=== PATIENT | female | born 1960 | race Caucasian/White ===

== ENCOUNTER → 2017-09-25 | Outpatient (CLI) | payer MEDICARE, MEDICAID ==
[~2017-09-25] MED LIST: BIOF500T11; CARI-316; CIPR-173; CITA-30 PO; DIA2T; FLUV100C; FLUV100T15 PO; NOR10T; NUTRTAB41 PO; PROMETHAZINE PO
== END | disposition home or self-care (01) ==
LOC: Rad HDHVI 13:49
PROVIDERS: ATTEND Internal Medicine Cardiovascular Disease
DX: I08.2 Rheumatic disorders of both aortic and tricuspid valves (principal); I70.0 Atherosclerosis of aorta; E11.9 Type 2 diabetes mellitus without complications
CPT/HCPCS: 93306

== ENCOUNTER → 2017-10-07 | Outpatient (CLI) | payer MEDICARE, MEDICAID ==
[~2017-10-07] VITALS: Ht 30.5 cm; Wt 0.5 kg
[~2017-10-07] MED LIST changes: +ADENOSINE 90 MG/30 ML INJ IV ONE; +ADENOSINE 95 MG in GIVE UN-DILUTED 0 ML IV ONE
[2017-10-07 16:24] LABS: Basophils # (auto) 0.1 uL; Basophils % (auto) 0.8 % (0.0-2.0); Eosinophils # (auto) 0.3 uL; Eosinophils % (auto) 2.4 % (0.0-7.0); Hematocrit 43.3 % (36.0-46.0); Hemoglobin 14.7 g/dL (12.2-16.2); Lymphocytes # (auto) 3.2 uL; Lymphocytes % (auto) 30.2 % (10.0-50.0); Mean Corpuscular Hemoglobin 29.8 pg (28.0-32.0); Mean Corpuscular Volume 87.9 fL (80.0-100.0); Monocytes # (auto) 0.6 uL; Monocytes % (auto) 5.4 % (0.0-12.0); Neutrophils # (auto) 6.5 uL; Neutrophils % (auto) 61.2 % (37.0-80.0); Nucleated Red Blood Cells % 0.1 %; Platelet Count (auto) 275 10^3/uL (140-450); Red Blood Cells 4.93 10^6/uL (4.0-5.20); Red Cell Distribution Width 13.5 % (11.8-14.3); White Blood Cell 10.6 10^3/uL (4.4-10.8)
[2017-10-07 16:43] LABS: Albumin 3.8 g/dL (3.4-5.0); BUN/Creatinine Ratio 15.5; Bilirubin, Total 1.4 mg/dL (0.2-1.0); Calcium 9.7 mg/dL (8.5-10.1); Potassium 3.5 mmol/L (3.5-5.1); Total Protein 8.5 g/dL (6.4-8.2)
[2017-10-07 16:54] LABS: Urine Blood 2+ /uL (Negative); Urine Specific Gravity 1.013 (1.001-1.035)
== END | disposition home or self-care (01) ==
LOC: Rad HDHVI 13:39
PROVIDERS: ATTEND Internal Medicine Cardiovascular Disease
DX: E78.00 Pure hypercholesterolemia, unspecified (principal); D64.9 Anemia, unspecified; I10 Essential (primary) hypertension; E11.9 Type 2 diabetes mellitus without complications; E03.9 Hypothyroidism, unspecified; E55.9 Vitamin D deficiency, unspecified; D51.9 Vitamin B12 deficiency anemia, unspecified; N39.0 Urinary tract infection, site not specified
CPT/HCPCS: 36415; 78452; 80053; 80061; 81003; 82306; 83036; 84439; 84443; 85025; 93005; 96374; 96375; A9500; J0153

== ENCOUNTER 2020-03-04 15:32 | Inpatient (IN) | payer MEDICARE, MEDICAID ==
[~2020-03-04] VITALS: Ht 162.6 cm; Wt 106.0 kg
[~2020-03-04 15:32] MED LIST changes: -ADENOSINE 90 MG/30 ML INJ IV ONE; -ADENOSINE 95 MG in GIVE UN-DILUTED 0 ML IV ONE; -CARI-316; +CARI350T22
[2020-03-04 17:03] LABS: Urine Bacteria FEW /hpf (None Seen); Urine Blood 1+ /uL (Negative); Urine Mucus FEW (None Seen); Urine Specific Gravity 1.023 (1.001-1.035); Urine WBC 17 /hpf (0 - 5)
[2020-03-04 17:34] LABS: Basophils # (auto) 0.1 10 ^3/uL (0-0.2); Basophils % (auto) 0.9 % (0.0-2.0); Eosinophils # (auto) 0.1 10 ^3/uL (0-0.8); Eosinophils % (auto) 1.5 % (0.0-7.0); Hematocrit 44.9 % (36.0-46.0); Hemoglobin 15.2 g/dL (12.2-16.2); Lymphocytes # (auto) 2.2 10 ^3/uL (0.4-5.4); Lymphocytes % (auto) 25.2 % (10.0-50.0); Mean Corpuscular Hemoglobin 30.2 pg (28.0-32.0); Mean Corpuscular Hgb Conc. 33.9 g/dL (32.0-36.0); Mean Corpuscular Volume 89.1 fL (80.0-100.0); Monocytes # (auto) 0.5 10 ^3/uL (0-1.3); Monocytes % (auto) 5.8 % (0.0-12.0); Neutrophils # (auto) 5.7 10 ^3/uL (1.6-8.6); Neutrophils % (auto) 66.6 % (37.0-80.0); Nucleated Red Blood Cells % 0.1 %; Platelet Count (auto) 268 10^3/uL (140-450); Red Blood Cells 5.04 10^6/uL (4.0-5.20); Red Cell Distribution Width 13.6 % (11.8-14.3); White Blood Cell 8.6 10^3/uL (4.4-10.8)
[2020-03-04] MEDS ORDERED: cefTRIAXone 1GM/50ML D5W 50 ML IV ONE (17:45)
[2020-03-04 17:51] LABS: Anion Gap 8 (5-15); Blood Urea Nitrogen 14 mg/dL (7-18); Calcium 9.8 mg/dL (8.5-10.1); Carbon Dioxide 25 mmol/L (21-32); Chloride 104 mmol/L (98-107); Glucose 174 mg/dL (74-106); Potassium 3.6 mmol/L (3.5-5.1); Sodium 137 mmol/L (136-145)
[2020-03-04 17:59] LABS: Alanine Aminotransferase 38 U/L (13-56); Alkaline Phosphatase 70 U/L (45-117); Aspartate Aminotransferase 22 U/L (15-37); BUN/Creatinine Ratio 16.1; Bilirubin, Total 1.1 mg/dL (0.2-1.0); GFR African American 85 mL/min; GFR Non-African American 71 mL/min; Total Protein 8.2 g/dL (6.4-8.2)
[2020-03-05] MEDS ORDERED: DOCUSATE SOD 100 MG CAP PO PRN (02:30)
[2020-03-05] MEDS ORDERED: ACETAMINOPHEN 325 MG TAB PO PRN (02:30)
[2020-03-05] MEDS ORDERED: MORPHINE SULF INJ 2 MG/ML SYRINGE 1ML IV PRN (02:30)
[2020-03-05] MEDS: SODIUM CHLORIDE 0.9% 1,000 ML IV SCH ×2 (04:23→23:00)
[2020-03-05 09:15] VITALS: BP 131/81
[2020-03-05] MEDS ORDERED: NUTRTAB41 OR (10:59)
[2020-03-05] MEDS ORDERED: SITA50TA PO (10:59)
[2020-03-05] MEDS ORDERED: GLIM-5 PO (11:01)
[2020-03-05] MEDS ORDERED: ALL100T PO (11:01)
[2020-03-05] MEDS ORDERED: PRO25I PO (11:01)
[2020-03-05 13:00] VITALS: BP 129/75
[2020-03-05 13:27] LABS: Basophils # (auto) 0 10 ^3/uL (0-0.2); Basophils % (auto) 0.6 % (0.0-2.0); Eosinophils # (auto) 0.1 10 ^3/uL (0-0.8); Eosinophils % (auto) 1.6 % (0.0-7.0); Hematocrit 41.5 % (36.0-46.0); Hemoglobin 13.8 g/dL (12.2-16.2); Lymphocytes # (auto) 2.4 10 ^3/uL (0.4-5.4); Lymphocytes % (auto) 27.5 % (10.0-50.0); Mean Corpuscular Hemoglobin 29.8 pg (28.0-32.0); Mean Corpuscular Hgb Conc. 33.2 g/dL (32.0-36.0); Mean Corpuscular Volume 89.8 fL (80.0-100.0); Monocytes # (auto) 0.6 10 ^3/uL (0-1.3); Monocytes % (auto) 6.6 % (0.0-12.0); Neutrophils # (auto) 5.6 10 ^3/uL (1.6-8.6); Neutrophils % (auto) 63.7 % (37.0-80.0); Nucleated Red Blood Cells % 0.1 %; Platelet Count (auto) 230 10^3/uL (140-450); Red Blood Cells 4.62 10^6/uL (4.0-5.20); Red Cell Distribution Width 13.5 % (11.8-14.3); White Blood Cell 8.8 10^3/uL (4.4-10.8)
[2020-03-05 13:52] LABS: Calcium 8.8 mg/dL (8.5-10.1); Potassium 3.6 mmol/L (3.5-5.1)
[2020-03-05 13:55] LABS: BUN/Creatinine Ratio 17.7
[2020-03-05] MEDS ORDERED: MANNITOL FTV 25% 12.5 GM/50 ML 50 ML IV ONE (15:45)
[2020-03-05] MEDS ORDERED: DEXTROSE (50%) 50ML SYRG IV PRN (16:15)
[2020-03-05 17:00] VITALS: BP 121/79
[2020-03-05] MEDS: ACCU-CHEK COMFORT CURVE STRIP VI SCH ×2 (18:06→21:53)
[2020-03-05] MEDS: InsuLIN REG 1unit/0.01ml Soln (100units/ml) SC SCH ×2 (18:06→22:32)
--- NOTE | 2020-03-05 19:35 | NUR ---
Opening Shift Note Assumed care of patient, awake and alert x4. No S/S of distress/SOB, complaints of a right flank pain 6/0-10, pain management options discussed. Call light is within reach, side rails up x2, bed is in the lowest position. Instructed on POC and to call for assist PRN, will continue to monitor for changes Q1hr and PRN.
[2020-03-05] MEDS: HYDROcodone-ACET 5/325MG TAB PO PRN (19:54)
[2020-03-05 22:00] VITALS: BP 140/82
--- NOTE | 2020-03-05 22:06 | NUR ---
IV removal from right hand due to leaking IV DC'd with clean sterile technique, catheter fully intact. Pressure dressing applied to site. Patient tolerated well.
--- NOTE | 2020-03-05 22:45 | NUR ---
IV insertion to RFA IV access obtained, via clean sterile technique by inserting 22 gauge catheter at the RFA after 1 attempt(s). IV secured properly. No trauma to site. Patient tolerated well.
[2020-03-06] MEDS: HYDROcodone-ACET 5/325MG TAB PO PRN ×3 (05:15→21:31)
[2020-03-06 05:54] LABS: Basophils # (auto) 0.1 10 ^3/uL (0-0.2); Basophils % (auto) 0.7 % (0.0-2.0); Eosinophils # (auto) 0.2 10 ^3/uL (0-0.8); Eosinophils % (auto) 2.6 % (0.0-7.0); Hematocrit 40.4 % (36.0-46.0); Hemoglobin 13.7 g/dL (12.2-16.2); Lymphocytes # (auto) 2.9 10 ^3/uL (0.4-5.4); Lymphocytes % (auto) 33.6 % (10.0-50.0); Mean Corpuscular Hemoglobin 30.4 pg (28.0-32.0); Mean Corpuscular Hgb Conc. 33.9 g/dL (32.0-36.0); Mean Corpuscular Volume 89.8 fL (80.0-100.0); Monocytes # (auto) 0.6 10 ^3/uL (0-1.3); Monocytes % (auto) 7.1 % (0.0-12.0); Neutrophils # (auto) 4.8 10 ^3/uL (1.6-8.6); Nucleated Red Blood Cells % 0.8 %; Platelet Count (auto) 228 10^3/uL (140-450); Red Cell Distribution Width 13.7 % (11.8-14.3); White Blood Cell 8.7 10^3/uL (4.4-10.8)
[2020-03-06 06:05] VITALS: BP 157/80
[2020-03-06 06:08] LABS: Calcium 8.6 mg/dL (8.5-10.1); Potassium 3.4 mmol/L (3.5-5.1)
[2020-03-06 06:09] LABS: INR 1.02 (0.9-1.15)
[2020-03-06] MEDS: InsuLIN REG 1unit/0.01ml Soln (100units/ml) SC SCH ×4 (06:55→22:21)
[2020-03-06] MEDS: ACCU-CHEK COMFORT CURVE STRIP VI SCH ×4 (06:55→21:55)
[2020-03-06 08:00] VITALS: BP 137/88
[2020-03-06 09:00] VITALS: BP 137/88
[2020-03-06] MEDS: SODIUM CHLORIDE 0.9% 1,000 ML IV SCH (12:01)
[2020-03-06 13:00] VITALS: BP 141/76
[2020-03-06] MEDS ORDERED: POTASSIUM EFFERVESENT TAB 25 MEQ PO ONE (14:30)
[2020-03-06 17:00] VITALS: BP 126/70
[2020-03-06] MEDS: ESTROVEN PO SCH (17:04)
[2020-03-06] MEDS ORDERED: FLUVOXAMINE 100 MG PO SCH (22:00)
[2020-03-06 22:01] VITALS: BP 154/78
[2020-03-07 05:00] VITALS: BP 150/74
[2020-03-07] MEDS: SODIUM CHLORIDE 0.9% 1,000 ML IV SCH ×2 (06:10→20:53)
[2020-03-07] MEDS: ACCU-CHEK COMFORT CURVE STRIP VI SCH ×4 (06:43→21:18)
[2020-03-07] MEDS: HYDROcodone-ACET 5/325MG TAB PO PRN ×3 (06:48→20:56)
[2020-03-07] MEDS: InsuLIN REG 1unit/0.01ml Soln (100units/ml) SC SCH ×4 (06:57→21:18)
[2020-03-07 07:29] LABS: Basophils # (auto) 0.1 10 ^3/uL (0-0.2); Eosinophils # (auto) 0.3 10 ^3/uL (0-0.8); Eosinophils % (auto) 3.6 % (0.0-7.0); Hematocrit 42.6 % (36.0-46.0); Hemoglobin 14.2 g/dL (12.2-16.2); Lymphocytes # (auto) 2.7 10 ^3/uL (0.4-5.4); Lymphocytes % (auto) 34.1 % (10.0-50.0); Mean Corpuscular Hgb Conc. 33.3 g/dL (32.0-36.0); Mean Corpuscular Volume 90.2 fL (80.0-100.0); Monocytes # (auto) 0.5 10 ^3/uL (0-1.3); Monocytes % (auto) 6.1 % (0.0-12.0); Neutrophils # (auto) 4.4 10 ^3/uL (1.6-8.6); Neutrophils % (auto) 55.2 % (37.0-80.0); Platelet Count (auto) 258 10^3/uL (140-450); Red Blood Cells 4.72 10^6/uL (4.0-5.20); Red Cell Distribution Width 13.4 % (11.8-14.3); White Blood Cell 7.9 10^3/uL (4.4-10.8)
[2020-03-07 07:44] LABS: BUN/Creatinine Ratio 17.5; Calcium 8.8 mg/dL (8.5-10.1); Potassium 3.6 mmol/L (3.5-5.1)
[2020-03-07 08:00] VITALS: BP 137/79
[2020-03-07 08:53] VITALS: BP 137/79
[2020-03-07] MEDS: cefTRIAXone 1GM/50ML D5W 50 ML IV SCH (10:41)
[2020-03-07] MEDS: LORazepam 0.5 MG TAB PO PRN ×2 (10:42→17:21)
[2020-03-07 13:00] VITALS: BP 127/78
[2020-03-07 17:00] VITALS: BP 132/79
[2020-03-07] MEDS: ESTROVEN PO SCH (17:20)
[2020-03-07] MEDS: FLUVOXAMINE 100 MG PO SCH (21:05)
[2020-03-08 05:00] VITALS: BP 155/84
[2020-03-08] MEDS: InsuLIN REG 1unit/0.01ml Soln (100units/ml) SC SCH ×4 (06:21→22:02)
[2020-03-08] MEDS: ACCU-CHEK COMFORT CURVE STRIP VI SCH ×4 (06:21→21:56)
[2020-03-08 07:32] LABS: Basophils # (auto) 0.1 10 ^3/uL (0-0.2); Basophils % (auto) 0.7 % (0.0-2.0); Eosinophils # (auto) 0.2 10 ^3/uL (0-0.8); Eosinophils % (auto) 2.9 % (0.0-7.0); Hematocrit 41.7 % (36.0-46.0); Hemoglobin 13.9 g/dL (12.2-16.2); Lymphocytes # (auto) 2.7 10 ^3/uL (0.4-5.4); Lymphocytes % (auto) 35.6 % (10.0-50.0); Mean Corpuscular Hgb Conc. 33.4 g/dL (32.0-36.0); Mean Corpuscular Volume 89.9 fL (80.0-100.0); Monocytes # (auto) 0.5 10 ^3/uL (0-1.3); Monocytes % (auto) 6.3 % (0.0-12.0); Neutrophils # (auto) 4.1 10 ^3/uL (1.6-8.6); Neutrophils % (auto) 54.5 % (37.0-80.0); Nucleated Red Blood Cells % 0.1 %; Platelet Count (auto) 248 10^3/uL (140-450); Red Blood Cells 4.64 10^6/uL (4.0-5.20); Red Cell Distribution Width 13.2 % (11.8-14.3); White Blood Cell 7.5 10^3/uL (4.4-10.8)
[2020-03-08 07:47] LABS: BUN/Creatinine Ratio 15.4; Calcium 8.7 mg/dL (8.5-10.1); Potassium 3.6 mmol/L (3.5-5.1)
[2020-03-08] MEDS ORDERED: IOHEXOL 300 MG/ML 100ML BOTTLE IJ ONE (07:47)
[2020-03-08] MEDS ORDERED: cefTRIAXone 1GM/50ML D5W 50 ML IV ONE (07:48)
[2020-03-08] MEDS ORDERED: LIDOCAINE 1% (LOCAL ANESTH.) PF 5ml SDV ONE (08:27)
[2020-03-08] MEDS ORDERED: SUCCINYLCHOLINE CHLORIDE 20 MG/ML 10ML VIAL IV ONE (08:27)
[2020-03-08] MEDS ORDERED: METOCLOPRAMIDE HCL 5MG/ml INJ 2ml VIAL ONE (08:28)
[2020-03-08] MEDS ORDERED: MIDAZOLAM HCL 1MG/1ML-2 ML VIAL ONE (08:28)
[2020-03-08] MEDS ORDERED: ETOMIDATE (2MG/ML) 20ML VIAL IV ONE (08:34)
[2020-03-08] MEDS ORDERED: ROCURONIUM 10MG/ML 10ML VIAL IV ONE (08:35)
[2020-03-08] MEDS ORDERED: fentaNYL CITRATE 100 MCG/2 ML VL ONE (08:52)
[2020-03-08] MEDS ORDERED: ACCU-CHEK COMFORT CURVE STRIP VI ONE (09:00)
[2020-03-08] MEDS ORDERED: ONDANSETRON HCL 4 MG/2 ML VIAL IV PRN (09:00)
[2020-03-08] MEDS ORDERED: HYDROmorphone HCL 2 MG/ML VL IV PRN ×2 (09:00)
[2020-03-08] MEDS ORDERED: NALOXONE HCL 0.4 MG/ML VIAL IV PRN (09:00)
[2020-03-08] MEDS ORDERED: STERILE WATER 10 ML ONE (09:05)
[2020-03-08] MEDS ORDERED: ePHEDrine SULFATE 50 MG/ML AMP ONE (09:05)
[2020-03-08] MEDS: cefTRIAXone 1GM/50ML D5W 50 ML IV SCH (09:06)
[2020-03-08] MEDS ORDERED: NEOSTIGMINE 1 MG/ML INJ (10mg/10ML VIAL) ONE (09:39)
[2020-03-08] MEDS ORDERED: FUROSEMIDE 20 MG/2 ML VIAL ONE (09:54)
[2020-03-08] MEDS ORDERED: FUROSEMIDE 20 MG/2 ML VIAL IV ONE (10:00)
[2020-03-08] MEDS: ONDANSETRON HCL 4 MG/2 ML VIAL IV PRN ×2 (10:59→16:53)
[2020-03-08] MEDS: LORazepam 0.5 MG TAB PO PRN ×3 (11:01→23:50)
[2020-03-08] MEDS: SODIUM CHLORIDE 0.9% 1,000 ML IV SCH (12:14)
[2020-03-08] MEDS: HYDROcodone-ACET 5/325MG TAB PO PRN ×3 (12:39→23:50)
[2020-03-08 12:49] VITALS: BP 144/98
--- NOTE | 2020-03-08 15:07 | NUR ---
GUPTA CATHETER REMOVED
--- NOTE | 2020-03-08 15:51 | NUR ---
Est energy needs 6316-0362 kcal (14-18 kcal/kg BW 106.1kg) Est protein needs 55-82g (1-1.5g/kg BW 54.5kg) Will reassess prn Addendum: 03/08/20 at [address] Amended: Links added.
[2020-03-08 16:48] VITALS: BP 153/93
[2020-03-08] MEDS: ESTROVEN PO SCH (17:18)
--- NOTE | 2020-03-08 18:30 | NUR ---
PATIENT CLEARED FOR DISCHARGE FROM RESPIRATORY STANDPOINT BY DR SANCHEZ
[2020-03-08 22:00] VITALS: BP 146/98
[2020-03-08] MEDS: FLUVOXAMINE 100 MG PO SCH (22:46)
--- NOTE | 2020-03-09 | NUR ---
PT AMBULATORY TO BATHROOM AND BACK TO BED W/O ASSISTANCE.DENIES PAIN. CALL LIGHT IN REACH.
[2020-03-09 05:00] VITALS: BP 141/83
[2020-03-09] MEDS: InsuLIN REG 1unit/0.01ml Soln (100units/ml) SC SCH ×3 (05:38→17:00)
[2020-03-09 05:40] LABS: Basophils # (auto) 0.1 10 ^3/uL (0-0.2); Basophils % (auto) 0.6 % (0.0-2.0); Eosinophils # (auto) 0.2 10 ^3/uL (0-0.8); Eosinophils % (auto) 1.6 % (0.0-7.0); Hematocrit 42.6 % (36.0-46.0); Hemoglobin 14.5 g/dL (12.2-16.2); Lymphocytes # (auto) 2.1 10 ^3/uL (0.4-5.4); Lymphocytes % (auto) 19.5 % (10.0-50.0); Mean Corpuscular Hemoglobin 30.6 pg (28.0-32.0); Monocytes # (auto) 0.6 10 ^3/uL (0-1.3); Monocytes % (auto) 5.8 % (0.0-12.0); Neutrophils # (auto) 7.8 10 ^3/uL (1.6-8.6); Neutrophils % (auto) 72.5 % (37.0-80.0); Nucleated Red Blood Cells % 0.2 %; Platelet Count (auto) 242 10^3/uL (140-450); Red Blood Cells 4.73 10^6/uL (4.0-5.20); Red Cell Distribution Width 13.6 % (11.8-14.3); White Blood Cell 10.7 10^3/uL (4.4-10.8)
[2020-03-09] MEDS: ACCU-CHEK COMFORT CURVE STRIP VI SCH ×3 (05:46→17:00)
[2020-03-09] MEDS: HYDROcodone-ACET 5/325MG TAB PO PRN ×2 (05:51→11:32)
[2020-03-09] MEDS: LORazepam 0.5 MG TAB PO PRN (05:51)
[2020-03-09 05:56] LABS: Calcium 9.1 mg/dL (8.5-10.1); Potassium 3.5 mmol/L (3.5-5.1)
[2020-03-09] MEDS: SODIUM CHLORIDE 0.9% 1,000 ML IV SCH (06:17)
[2020-03-09 08:15] VITALS: BP 148/86
[2020-03-09 09:12] VITALS: BP 148/86
[2020-03-09] MEDS: cefTRIAXone 1GM/50ML D5W 50 ML IV SCH (09:47)
--- NOTE | 2020-03-09 10:30 | NUR ---
PAGED DR PERDOMO IN REGARDS TO DISCHARGE CLEARANCE REQUESTED BY DR GRACE
[2020-03-09] MEDS: ONDANSETRON HCL 4 MG/2 ML VIAL IV PRN (11:25)
[2020-03-09 13:09] VITALS: BP 145/94
--- NOTE | 2020-03-09 15:40 | NUR ---
RECEIVED VERBAL CLEARANCE FOR DISCHARGE FROM DR PERDOMO OF SURGERY
[2020-03-09] MEDS ORDERED: METF-370 PO (15:55)
[2020-03-09] MEDS ORDERED: ATOR20TA50 PO (15:57)
[2020-03-09 16:41] VITALS: BP 145/94
[2020-03-09 17:06] VITALS: BP 139/70
--- NOTE | 2020-03-09 18:04 | NUR ---
PATIENT DISCHARGING HOME WITH FAMILY. PATIENT NON-TELEMETRY. ALL IV ACCESS DISCONTINUED. ALL DISCHARGE INSTRUCTIONS GIVEN. ALL DISCHARGE PAPERWORK SIGNED.
[2020-04-04] MEDS ORDERED: TRAM-711 PO (10:31)
== END 2020-03-09 18:00 | disposition home or self-care (01) | DRG 660 ==
LOC: ER 15:32 → OVERFLOW 15:33 → WEST WING 03-05 08:21
PROVIDERS: ADMIT Hospitalist; ATTEND Internal Medicine Nephrology
PROC: BT161ZZ Fluoroscopy of Right Ureter using Low Osmolar Contrast (ICD-10-PCS; 2020-03-08)
PROC: BT171ZZ Fluoroscopy of Left Ureter using Low Osmolar Contrast (ICD-10-PCS; 2020-03-08)
PROC: 0T788DZ Dilation of Bilateral Ureters with Intraluminal Device, Via Natural or Artificial Opening Endoscopic (ICD-10-PCS; principal; 2020-03-08 08:25)
PROC: 0TF6XZZ Fragmentation in Right Ureter, External Approach (ICD-10-PCS; 2020-03-08 08:25)
DX: N13.6 Pyonephrosis (principal); Z68.41 Body mass index [BMI] 40.0-44.9, adult; K57.90 Diverticulosis of intestine, part unspecified, without perforation or abscess without bleeding; K76.0 Fatty (change of) liver, not elsewhere classified; E66.01 Morbid (severe) obesity due to excess calories; K42.9 Umbilical hernia without obstruction or gangrene; D17.1 Benign lipomatous neoplasm of skin and subcutaneous tissue of trunk; E87.6 Hypokalemia; Z20.828 Contact with and (suspected) exposure to other viral communicable diseases; F41.9 Anxiety disorder, unspecified; F32.9 Major depressive disorder, single episode, unspecified; E11.65 Type 2 diabetes mellitus with hyperglycemia; M16.11 Unilateral primary osteoarthritis, right hip; Z88.2 Allergy status to sulfonamides; Z88.1 Allergy status to other antibiotic agents; Z88.0 Allergy status to penicillin
CPT/HCPCS: 36415; 71045; 71250; 74018; 74176; 80048; 80053; 80061; 81001; 82962; 83036; 84443; 84484; 85025; 85610; 86850; 86900; 86901; 87086; 96365; G0378; J0330; J0696; J1815; J2250; J2405

== ENCOUNTER → 2020-04-09 | Day surgery (SDC) | payer MEDICARE, MEDICAID ==
[2020-04-04 11:17] LABS: Basophils # (auto) 0.1 10 ^3/uL (0-0.2); Basophils % (auto) 0.8 % (0.0-2.0); Eosinophils # (auto) 0.2 10 ^3/uL (0-0.8); Eosinophils % (auto) 2.3 % (0.0-7.0); Hematocrit 42.6 % (36.0-46.0); Lymphocytes % (auto) 21.7 % (10.0-50.0); Mean Corpuscular Hemoglobin 29.7 pg (28.0-32.0); Mean Corpuscular Hgb Conc. 32.8 g/dL (32.0-36.0); Mean Corpuscular Volume 90.5 fL (80.0-100.0); Monocytes # (auto) 0.5 10 ^3/uL (0-1.3); Monocytes % (auto) 5.5 % (0.0-12.0); Neutrophils # (auto) 6.4 10 ^3/uL (1.6-8.6); Neutrophils % (auto) 69.7 % (37.0-80.0); Nucleated Red Blood Cells % 0.1 %; Platelet Count (auto) 264 10^3/uL (140-450); Red Cell Distribution Width 13.3 % (11.8-14.3); White Blood Cell 9.2 10^3/uL (4.4-10.8)
[2020-04-04 11:35] LABS: INR 0.92 (0.9-1.15); Partial Thromboplastin Time 26.5 sec (23.0-31.2)
[2020-04-04 11:50] LABS: Albumin 3.5 g/dL (3.4-5.0); Calcium 9.2 mg/dL (8.5-10.1); Potassium 3.7 mmol/L (3.5-5.1)
[2020-04-04 11:53] LABS: Bilirubin, Total 0.8 mg/dL (0.2-1.0); Total Protein 7.2 g/dL (6.4-8.2)
[2020-04-04 12:40] LABS: Urine Bacteria FEW /hpf (None Seen); Urine Blood 3+ /uL (Negative); Urine Mucus FEW (None Seen); Urine WBC 132 /hpf (0 - 5)
[~2020-04-09] VITALS: Ht 162.6 cm; Wt 102.5 kg
[~2020-04-09] MED LIST changes: +ACCU-CHEK COMFORT CURVE STRIP VI ONE; +ALL100T PO; -BIOF500T11; -CARI350T22; -CIPR-173; -CITA-30 PO; -DIA2T; +ETOMIDATE (2MG/ML) 20ML VIAL IV ONE; -FLUV100C; +GLIM-5 PO; +HYDROmorphone HCL 2 MG/ML VL IV PRN; +IOHEXOL 300 MG/ML 100ML BOTTLE IJ ONE; +LIDOCAINE 1% (LOCAL ANESTH.) PF 5ml SDV ONE; +MECLIZINE HCL 25 MG TAB PO ONE; +METOCLOPRAMIDE HCL 5MG/ml INJ 2ml VIAL ONE; +MIDAZOLAM HCL 1MG/1ML-2 ML VIAL ONE; +NALOXONE HCL 0.4 MG/ML VIAL IV PRN; -NOR10T; +NUTRTAB41 OR; -NUTRTAB41 PO; +ONDANSETRON HCL 4 MG/2 ML VIAL IV PRN; +ONDANSETRON HCL 4 MG/2 ML VIAL ONE; +PROMETHAZINE HCL 25 MG/ML 1ML IV PRN; -PROMETHAZINE PO; +ROCURONIUM 10MG/ML 10ML VIAL IV ONE; +SITA50TA PO; +SUCCINYLCHOLINE CHLORIDE 20 MG/ML 10ML VIAL IV ONE; +TRAM-711 PO; +VANCOMYCIN HCL 1000 MG VL ONE; +cefTRIAXone 1GM/50ML D5W 50 ML IV ONE; +fentaNYL CITRATE 100 MCG/2 ML VL ONE
[2020-04-09 12:20] VITALS: BP 133/68
== END | disposition home or self-care (01) ==
LOC: SUR 08:07
PROVIDERS: ATTEND Urology
DX: N20.0 Calculus of kidney (principal); E11.22 Type 2 diabetes mellitus with diabetic chronic kidney disease; N18.3 Chronic kidney disease, stage 3 (moderate); K21.9 Gastro-esophageal reflux disease without esophagitis; G89.29 Other chronic pain; F32.9 Major depressive disorder, single episode, unspecified; F41.9 Anxiety disorder, unspecified; G47.33 Obstructive sleep apnea (adult) (pediatric); E66.01 Morbid (severe) obesity due to excess calories; Z68.41 Body mass index [BMI] 40.0-44.9, adult; Z88.2 Allergy status to sulfonamides; Z88.1 Allergy status to other antibiotic agents; Z88.8 Allergy status to other drugs, medicaments and biological substances; Z79.899 Other long term (current) drug therapy; Z79.84 Long term (current) use of oral hypoglycemic drugs; Z88.0 Allergy status to penicillin; Z20.828 Contact with and (suspected) exposure to other viral communicable diseases
CPT/HCPCS: 36415; 50590; 52310; 80053; 81001; 82962; 85025; 85610; 85730; J0330; J0696; J2250; J2405; J2765; J3010; J3370; J7060; J8597; U0003; J1956

== ENCOUNTER → 2020-04-19 | Outpatient (CLI) | payer MEDICARE, MEDICAID ==
[~2020-04-19] VITALS: Ht 162.6 cm; Wt 102.5 kg
[~2020-04-19] MED LIST changes: -ACCU-CHEK COMFORT CURVE STRIP VI ONE; +ADENOSINE 86 MG in GIVE UN-DILUTED 0 ML IV ONE; +ADENOSINE 90 MG/30 ML INJ IV ONE; -ETOMIDATE (2MG/ML) 20ML VIAL IV ONE; -HYDROmorphone HCL 2 MG/ML VL IV PRN; -IOHEXOL 300 MG/ML 100ML BOTTLE IJ ONE; -LIDOCAINE 1% (LOCAL ANESTH.) PF 5ml SDV ONE; -MECLIZINE HCL 25 MG TAB PO ONE; -METOCLOPRAMIDE HCL 5MG/ml INJ 2ml VIAL ONE; -MIDAZOLAM HCL 1MG/1ML-2 ML VIAL ONE; -NALOXONE HCL 0.4 MG/ML VIAL IV PRN; -ONDANSETRON HCL 4 MG/2 ML VIAL IV PRN; -ONDANSETRON HCL 4 MG/2 ML VIAL ONE; -PROMETHAZINE HCL 25 MG/ML 1ML IV PRN; -ROCURONIUM 10MG/ML 10ML VIAL IV ONE; -SUCCINYLCHOLINE CHLORIDE 20 MG/ML 10ML VIAL IV ONE; -VANCOMYCIN HCL 1000 MG VL ONE; -cefTRIAXone 1GM/50ML D5W 50 ML IV ONE; -fentaNYL CITRATE 100 MCG/2 ML VL ONE
== END | disposition home or self-care (01) ==
LOC: Rad HDHVI 08:29
PROVIDERS: ATTEND Internal Medicine
DX: Z01.810 Encounter for preprocedural cardiovascular examination (principal); E11.9 Type 2 diabetes mellitus without complications; E78.00 Pure hypercholesterolemia, unspecified; Z88.0 Allergy status to penicillin; Z88.1 Allergy status to other antibiotic agents; Z88.2 Allergy status to sulfonamides; Z88.8 Allergy status to other drugs, medicaments and biological substances
CPT/HCPCS: 78452; 93005; 96374; 96375; A9500; J0153

== ENCOUNTER → 2020-04-30 | Outpatient (CLI) | payer MEDICARE, MEDICAID ==
[~2020-04-30] MED LIST changes: -ADENOSINE 86 MG in GIVE UN-DILUTED 0 ML IV ONE; -ADENOSINE 90 MG/30 ML INJ IV ONE
== END | disposition home or self-care (01) ==
LOC: Rad HDHVI 09:04
PROVIDERS: ATTEND Internal Medicine
DX: I34.0 Nonrheumatic mitral (valve) insufficiency (principal); R06.02 Shortness of breath; E11.9 Type 2 diabetes mellitus without complications; J44.9 Chronic obstructive pulmonary disease, unspecified
CPT/HCPCS: 93306

== ENCOUNTER → 2020-05-31 | Day surgery (SDC) | payer MEDICARE, MEDICAID ==
[2020-05-24 12:05] LABS: Basophils # (auto) 0.1 10 ^3/uL (0-0.2); Basophils % (auto) 0.7 % (0.0-2.0); Eosinophils # (auto) 0.2 10 ^3/uL (0-0.8); Eosinophils % (auto) 2.8 % (0.0-7.0); Hematocrit 39.3 % (36.0-46.0); Hemoglobin 13.2 g/dL (12.2-16.2); Lymphocytes # (auto) 2.5 10 ^3/uL (0.4-5.4); Lymphocytes % (auto) 29.3 % (10.0-50.0); Mean Corpuscular Hemoglobin 29.7 pg (28.0-32.0); Mean Corpuscular Hgb Conc. 33.5 g/dL (32.0-36.0); Mean Corpuscular Volume 88.8 fL (80.0-100.0); Monocytes # (auto) 0.5 10 ^3/uL (0-1.3); Neutrophils # (auto) 5.2 10 ^3/uL (1.6-8.6); Neutrophils % (auto) 61.2 % (37.0-80.0); Nucleated Red Blood Cells % 0.1 %; Platelet Count (auto) 280 10^3/uL (140-450); Red Blood Cells 4.43 10^6/uL (4.0-5.20); Red Cell Distribution Width 13.4 % (11.8-14.3); White Blood Cell 8.5 10^3/uL (4.4-10.8)
[2020-05-24 12:18] LABS: INR 0.91 (0.9-1.15); Partial Thromboplastin Time 26.4 sec (23.0-31.2)
[2020-05-24 12:38] LABS: Potassium 3.6 mmol/L (3.5-5.1)
[2020-05-24 12:45] LABS: Albumin 3.6 g/dL (3.4-5.0); Bilirubin, Total 0.7 mg/dL (0.2-1.0); Calcium 8.8 mg/dL (8.5-10.1); Total Protein 7.3 g/dL (6.4-8.2)
[2020-05-24 13:03] LABS: Urine Bacteria MANY /hpf (None Seen); Urine Blood 2+ /uL (Negative); Urine Specific Gravity 1.017 (1.001-1.035); Urine WBC 2482 /hpf (0 - 5); Urine WBC Clumps PRESENT /hpf (None Seen)
[~2020-05-31] VITALS: Ht 162.6 cm; Wt 102.5 kg
[~2020-05-31] MED LIST changes: +ACCU-CHEK COMFORT CURVE STRIP VI ONE; +DexAMETHasone SOD PHOS 10MG/1ML VIAL INJ ONE; +HYDROmorphone HCL 2 MG/ML VL IV PRN; +LABETALOL HCL 5 MG/ML 4ML SYRINGE IV PRN; +MEPERIDINE HCL (25 MG/ML) 1ML VIAL ONE; +MIDAZOLAM HCL 1MG/1ML-2 ML VIAL IV PRN; +MIDAZOLAM HCL 1MG/1ML-2 ML VIAL ONE; +MORPHINE SULFATE 4 MG/ML SYR/VIAL IV PRN; +ONDANSETRON HCL 4 MG/2 ML VIAL IV PRN; +PROPOFOL 10 MG/ML 20 ML IV ONE; +VANCOMYCIN HCL 1000 MG VL ONE; +ePHEDrine SULFATE 50 MG/ML AMP IV PRN; +fentaNYL CITRATE 100 MCG/2 ML VL ONE
[2020-05-31 10:55] VITALS: BP 140/79
== END | disposition home or self-care (01) ==
LOC: SUR 07:14
PROVIDERS: ATTEND Urology
DX: N20.0 Calculus of kidney (principal); E11.22 Type 2 diabetes mellitus with diabetic chronic kidney disease; I12.9 Hypertensive chronic kidney disease with stage 1 through stage 4 chronic kidney disease, or unspecified chronic kidney disease; N18.9 Chronic kidney disease, unspecified; E66.01 Morbid (severe) obesity due to excess calories; F41.9 Anxiety disorder, unspecified; F32.9 Major depressive disorder, single episode, unspecified; Z88.0 Allergy status to penicillin; Z88.2 Allergy status to sulfonamides; Z88.1 Allergy status to other antibiotic agents; Z68.38 Body mass index [BMI] 38.0-38.9, adult; G89.29 Other chronic pain; Z98.890 Other specified postprocedural states; Z79.899 Other long term (current) drug therapy; Z20.828 Contact with and (suspected) exposure to other viral communicable diseases
CPT/HCPCS: 36415; 50590; 80053; 81001; 82962; 85025; 85610; 85730; J1100; J2175; J2250; J2704; J3010; J3370; J7050; U0003

== ENCOUNTER → 2020-06-25 | Day surgery (SDC) | payer MEDICARE, MEDICAID ==
[2020-06-20 10:52] LABS: Basophils # (auto) 0.1 10 ^3/uL (0-0.2); Basophils % (auto) 0.9 % (0.0-2.0); Eosinophils # (auto) 0.2 10 ^3/uL (0-0.8); Eosinophils % (auto) 2.8 % (0.0-7.0); Hematocrit 41.2 % (36.0-46.0); Hemoglobin 13.7 g/dL (12.2-16.2); Lymphocytes # (auto) 2.1 10 ^3/uL (0.4-5.4); Lymphocytes % (auto) 25.3 % (10.0-50.0); Mean Corpuscular Hemoglobin 29.4 pg (28.0-32.0); Mean Corpuscular Hgb Conc. 33.1 g/dL (32.0-36.0); Mean Corpuscular Volume 88.8 fL (80.0-100.0); Monocytes # (auto) 0.5 10 ^3/uL (0-1.3); Monocytes % (auto) 5.9 % (0.0-12.0); Neutrophils # (auto) 5.5 10 ^3/uL (1.6-8.6); Neutrophils % (auto) 65.1 % (37.0-80.0); Platelet Count (auto) 269 10^3/uL (140-450); Red Blood Cells 4.64 10^6/uL (4.0-5.20); Red Cell Distribution Width 13.8 % (11.8-14.3); White Blood Cell 8.4 10^3/uL (4.4-10.8)
[2020-06-20 11:05] LABS: Albumin 3.5 g/dL (3.4-5.0); Calcium 9.3 mg/dL (8.5-10.1); Potassium 3.8 mmol/L (3.5-5.1); Urine Bacteria MANY /hpf (None Seen); Urine Blood 2+ /uL (Negative); Urine Mucus FEW (None Seen); Urine Specific Gravity 1.018 (1.001-1.035); Urine WBC 1219 /hpf (0 - 5); Urine WBC Clumps PRESENT /hpf (None Seen)
[2020-06-20 11:10] LABS: INR 0.92 (0.9-1.15); Partial Thromboplastin Time 26.5 sec (23.0-31.2)
[2020-06-20 11:11] LABS: Bilirubin, Total 0.7 mg/dL (0.2-1.0); Total Protein 7.6 g/dL (6.4-8.2)
[~2020-06-25] VITALS: Ht 162.6 cm; Wt 104.8 kg
[~2020-06-25] MED LIST changes: -DexAMETHasone SOD PHOS 10MG/1ML VIAL INJ ONE; +ETOMIDATE (2MG/ML) 20ML VIAL IV ONE; +GLYCOPYRROLATE 0.2 MG/ML 1ML VIAL ONE; -LABETALOL HCL 5 MG/ML 4ML SYRINGE IV PRN; +LIDOCAINE 2% (LOCAL ANESTH.) PF 5ml SDV ONE; -MEPERIDINE HCL (25 MG/ML) 1ML VIAL ONE; +METOCLOPRAMIDE HCL 5MG/ml INJ 2ml VIAL ONE; -MIDAZOLAM HCL 1MG/1ML-2 ML VIAL IV PRN; -MORPHINE SULFATE 4 MG/ML SYR/VIAL IV PRN; +NALOXONE HCL 0.4 MG/ML VIAL IV PRN; +NEOSTIGMINE 1 MG/ML INJ (10mg/10ML VIAL) ONE; -PROPOFOL 10 MG/ML 20 ML IV ONE; +ROCURONIUM 10MG/ML 10ML VIAL IV ONE; +SUCCINYLCHOLINE CHLORIDE 20 MG/ML 10ML VIAL IV ONE; -ePHEDrine SULFATE 50 MG/ML AMP IV PRN
[2020-06-25 13:15] VITALS: BP 138/53
== END | disposition home or self-care (01) ==
LOC: SUR 08:35
PROVIDERS: ATTEND Urology
DX: N20.0 Calculus of kidney (principal); E11.9 Type 2 diabetes mellitus without complications; I10 Essential (primary) hypertension; F32.9 Major depressive disorder, single episode, unspecified; E66.9 Obesity, unspecified; M19.90 Unspecified osteoarthritis, unspecified site; G47.33 Obstructive sleep apnea (adult) (pediatric); K21.9 Gastro-esophageal reflux disease without esophagitis; F41.9 Anxiety disorder, unspecified; Z98.890 Other specified postprocedural states; Z88.0 Allergy status to penicillin; Z68.39 Body mass index [BMI] 39.0-39.9, adult; Z88.2 Allergy status to sulfonamides; Z20.828 Contact with and (suspected) exposure to other viral communicable diseases; Z79.899 Other long term (current) drug therapy; Z88.1 Allergy status to other antibiotic agents
CPT/HCPCS: 36415; 50590; 52310; 80053; 81001; 82962; 85025; 85610; 85730; 88300; C1769; J2001; J2250; J2765; J3010; J3370; J7030; U0003; J0330

== ENCOUNTER → 2020-11-02 | Outpatient (CLI) | payer MEDICARE, MEDICAID ==
[~2020-11-02] MED LIST changes: -ACCU-CHEK COMFORT CURVE STRIP VI ONE; -ETOMIDATE (2MG/ML) 20ML VIAL IV ONE; -GLYCOPYRROLATE 0.2 MG/ML 1ML VIAL ONE; -HYDROmorphone HCL 2 MG/ML VL IV PRN; -LIDOCAINE 2% (LOCAL ANESTH.) PF 5ml SDV ONE; -METOCLOPRAMIDE HCL 5MG/ml INJ 2ml VIAL ONE; -MIDAZOLAM HCL 1MG/1ML-2 ML VIAL ONE; -NALOXONE HCL 0.4 MG/ML VIAL IV PRN; -NEOSTIGMINE 1 MG/ML INJ (10mg/10ML VIAL) ONE; -ONDANSETRON HCL 4 MG/2 ML VIAL IV PRN; -ROCURONIUM 10MG/ML 10ML VIAL IV ONE; -SUCCINYLCHOLINE CHLORIDE 20 MG/ML 10ML VIAL IV ONE; -VANCOMYCIN HCL 1000 MG VL ONE; -fentaNYL CITRATE 100 MCG/2 ML VL ONE
[2020-11-02 08:19] LABS: Urine Bacteria MANY /hpf (None Seen); Urine Blood TRACE /uL (Negative); Urine Mucus FEW (None Seen); Urine Specific Gravity 1.018 (1.001-1.035); Urine WBC 895 /hpf (0 - 5); Urine WBC Clumps PRESENT /hpf (None Seen)
== END | disposition home or self-care (01) ==
LOC: LAB 07:49
PROVIDERS: ATTEND Urology
DX: N20.0 Calculus of kidney (principal); R39.0 Extravasation of urine
CPT/HCPCS: 81001; 87086

== ENCOUNTER → 2021-01-01 | Outpatient (CLI) | payer MEDICARE, MEDICAID ==
[2021-01-01 11:57] LABS: Albumin 3.4 g/dL (3.4-5.0); Calcium 9.1 mg/dL (8.5-10.1); Potassium 3.7 mmol/L (3.5-5.1)
[2021-01-01 12:04] LABS: BUN/Creatinine Ratio 19.5; Bilirubin, Total 0.8 mg/dL (0.2-1.0); Total Protein 7.6 g/dL (6.4-8.2)
== END | disposition home or self-care (01) ==
LOC: Rad HDHVI 10:57
PROVIDERS: ATTEND Internal Medicine
DX: Z01.818 Encounter for other preprocedural examination (principal); N20.0 Calculus of kidney; M47.814 Spondylosis without myelopathy or radiculopathy, thoracic region; E78.5 Hyperlipidemia, unspecified; I10 Essential (primary) hypertension; E11.9 Type 2 diabetes mellitus without complications; E03.9 Hypothyroidism, unspecified
CPT/HCPCS: 36415; 71046; 80053; 80061; 83036; 84443

== ENCOUNTER 2021-01-05 12:36 | Emergency (ER) | payer MEDICARE, MEDICAID ==
[~2021-01-05] VITALS: Ht 162.6 cm; Wt 106.6 kg
[2021-01-05] MEDS ORDERED: ASPirin 81 mg TAB PO ONE (13:15)
[2021-01-05 13:51] LABS: Basophils # (auto) 0.1 10 ^3/uL (0-0.2); Basophils % (auto) 0.6 % (0.0-2.0); Eosinophils # (auto) 0.2 10 ^3/uL (0-0.8); Eosinophils % (auto) 1.3 % (0.0-7.0); Hemoglobin 14.6 g/dL (12.2-16.2); Lymphocytes # (auto) 2.5 10 ^3/uL (0.4-5.4); Lymphocytes % (auto) 20.9 % (10.0-50.0); Mean Corpuscular Hemoglobin 30.9 pg (28.0-32.0); Mean Corpuscular Hgb Conc. 34.8 g/dL (32.0-36.0); Mean Corpuscular Volume 88.9 fL (80.0-100.0); Monocytes # (auto) 0.6 10 ^3/uL (0-1.3); Monocytes % (auto) 4.9 % (0.0-12.0); Neutrophils # (auto) 8.6 10 ^3/uL (1.6-8.6); Neutrophils % (auto) 72.3 % (37.0-80.0); Platelet Count (auto) 244 10^3/uL (140-450); Red Blood Cells 4.73 10^6/uL (4.0-5.20); Red Cell Distribution Width 13.3 % (11.8-14.3); White Blood Cell 11.8 10^3/uL (4.4-10.8)
[2021-01-05 14:06] LABS: INR 0.98 (0.9-1.15)
[2021-01-05 14:07] LABS: Albumin 3.8 g/dL (3.4-5.0); Anion Gap 10 (5-15); Blood Urea Nitrogen 14 mg/dL (7-18); Carbon Dioxide 22 mmol/L (21-32); Chloride 105 mmol/L (98-107); Glucose 211 mg/dL (74-106); Magnesium 2.1 mg/dL (1.6-2.6); Potassium 3.6 mmol/L (3.5-5.1); Sodium 137 mmol/L (136-145)
[2021-01-05 14:13] LABS: Alanine Aminotransferase 44 U/L (13-56); Alkaline Phosphatase 79 U/L (45-117); Aspartate Aminotransferase 38 U/L (15-37); BUN/Creatinine Ratio 16.7; Bilirubin, Total 1.1 mg/dL (0.2-1.0); GFR African American 89 mL/min; GFR Non-African American 73 mL/min; Total Protein 7.9 g/dL (6.4-8.2)
[2021-01-05 15:52] LABS: Urine Bacteria FEW /hpf (None Seen); Urine Blood 1+ /uL (Negative); Urine Hyaline Cast FEW /lpf (0 - 2); Urine Mucus FEW (None Seen); Urine WBC 408 /hpf (0 - 5); Urine WBC Clumps PRESENT /hpf (None Seen)
[2021-01-05] MEDS ORDERED: IOHEXOL 350 MG/ML 100ML IJ ONE (17:10)
[2021-01-05] MEDS ORDERED: NITROFURANTOIN 100 mg CAP PO ONE (18:45)
[2021-01-05 19:12] VITALS: BP 116/53
== END 2021-01-05 19:40 | disposition home or self-care (01) ==
LOC: ER 12:36
DX: N39.0 Urinary tract infection, site not specified (principal); R00.2 Palpitations; F41.9 Anxiety disorder, unspecified; F32.9 Major depressive disorder, single episode, unspecified; E78.5 Hyperlipidemia, unspecified; I10 Essential (primary) hypertension; E66.8 Other obesity; Z68.41 Body mass index [BMI] 40.0-44.9, adult; Z88.1 Allergy status to other antibiotic agents; Z88.0 Allergy status to penicillin; Z88.2 Allergy status to sulfonamides; Z79.899 Other long term (current) drug therapy; Z87.442 Personal history of urinary calculi; Z98.890 Other specified postprocedural states; Z20.822 Contact with and (suspected) exposure to COVID-19
CPT/HCPCS: 36415; 71045; 71275; 80053; 81001; 82962; 83735; 83880; 84443; 84484; 85025; 85379; 85610; 85730; 87426; 93005; 99285; Q9967

== ENCOUNTER 2021-01-19 10:53 | Emergency (ER) | payer MEDICARE, MEDICAID ==
[~2021-01-19] VITALS: Ht 165.1 cm; Wt 113.4 kg
[2021-01-19 11:34] LABS: Basophils # (auto) 0.1 10 ^3/uL (0-0.2); Basophils % (auto) 0.8 % (0.0-2.0); Eosinophils # (auto) 0.1 10 ^3/uL (0-0.8); Eosinophils % (auto) 1.3 % (0.0-7.0); Hematocrit 42.1 % (36.0-46.0); Hemoglobin 14.8 g/dL (12.2-16.2); Lymphocytes # (auto) 2.7 10 ^3/uL (0.4-5.4); Lymphocytes % (auto) 27.1 % (10.0-50.0); Mean Corpuscular Hemoglobin 31.2 pg (28.0-32.0); Mean Corpuscular Hgb Conc. 35.2 g/dL (32.0-36.0); Mean Corpuscular Volume 88.6 fL (80.0-100.0); Monocytes # (auto) 0.4 10 ^3/uL (0-1.3); Monocytes % (auto) 4.2 % (0.0-12.0); Neutrophils # (auto) 6.6 10 ^3/uL (1.6-8.6); Neutrophils % (auto) 66.6 % (37.0-80.0); Red Blood Cells 4.75 10^6/uL (4.0-5.20); Red Cell Distribution Width 13.3 % (11.8-14.3); White Blood Cell 9.9 10^3/uL (4.4-10.8)
[2021-01-19 11:50] LABS: INR 0.98 (0.9-1.15); Partial Thromboplastin Time 26.7 sec (23.0-31.2)
[2021-01-19 11:52] LABS: Albumin 3.8 g/dL (3.4-5.0); Anion Gap 9 (5-15); Blood Urea Nitrogen 12 mg/dL (7-18); Calcium 9.2 mg/dL (8.5-10.1); Carbon Dioxide 24 mmol/L (21-32); Chloride 106 mmol/L (98-107); Glucose 223 mg/dL (74-106); Magnesium 2.1 mg/dL (1.6-2.6); Potassium 3.6 mmol/L (3.5-5.1); Sodium 139 mmol/L (136-145)
[2021-01-19 11:59] LABS: Alanine Aminotransferase 41 U/L (13-56); Alkaline Phosphatase 69 U/L (45-117); Aspartate Aminotransferase 21 U/L (15-37); BUN/Creatinine Ratio 13.2; Bilirubin, Total 1.1 mg/dL (0.2-1.0); GFR African American 81 mL/min; GFR Non-African American 67 mL/min; Total Protein 7.7 g/dL (6.4-8.2)
[2021-01-19 13:17] LABS: Urine Bacteria MANY /hpf (None Seen); Urine Blood 2+ /uL (Negative); Urine Hyaline Cast FEW /lpf (0 - 2); Urine Mucus FEW (None Seen); Urine Specific Gravity 1.022 (1.001-1.035); Urine WBC 432 /hpf (0 - 5); Urine WBC Clumps PRESENT /hpf (None Seen)
[2021-01-19 14:29] VITALS: BP 136/84
== END 2021-01-19 14:54 | disposition home or self-care (01) ==
LOC: ER 10:53
DX: R00.2 Palpitations (principal); N39.0 Urinary tract infection, site not specified; F41.9 Anxiety disorder, unspecified; E78.5 Hyperlipidemia, unspecified; I10 Essential (primary) hypertension; Z87.442 Personal history of urinary calculi; Z88.0 Allergy status to penicillin; Z88.2 Allergy status to sulfonamides
CPT/HCPCS: 36415; 71045; 80053; 81001; 83735; 84443; 84484; 85025; 85610; 85730; 93005

== ENCOUNTER → 2021-02-12 | Outpatient (CLI) | payer MEDICARE, MEDICAID | END | disposition home or self-care (01) | LOC: LAB 13:51 | PROVIDERS: ATTEND Nurse Practitioner Family | DX: N39.0 Urinary tract infection, site not specified (principal); R82.90 Unspecified abnormal findings in urine | CPT/HCPCS: 87086 ==

== ENCOUNTER → 2021-03-08 | Outpatient (CLI) | payer MEDICARE, MEDICAID ==
[2021-03-08 14:51] LABS: Urine Bacteria MANY /hpf (None Seen); Urine Blood Negative /uL (Negative); Urine Mucus FEW (None Seen); Urine Specific Gravity 1.019 (1.001-1.035); Urine WBC 402 /hpf (0 - 5); Urine WBC Clumps PRESENT /hpf (None Seen)
== END | disposition home or self-care (01) ==
LOC: LAB 14:20
PROVIDERS: ATTEND Urology
DX: N39.0 Urinary tract infection, site not specified (principal)
CPT/HCPCS: 81001; 87086

== ENCOUNTER → 2021-09-30 | Day surgery (SDC) | payer MEDICARE, MEDICAID ==
[2021-09-27 11:04] LABS: Basophils # (auto) 0.1 10 ^3/uL (0-0.2); Basophils % (auto) 0.7 % (0.0-2.0); Eosinophils # (auto) 0.3 10 ^3/uL (0-0.8); Hematocrit 40.5 % (36.0-46.0); Hemoglobin 13.6 g/dL (12.2-16.2); Lymphocytes # (auto) 2.6 10 ^3/uL (0.4-5.4); Mean Corpuscular Hgb Conc. 33.6 g/dL (32.0-36.0); Mean Corpuscular Volume 89.1 fL (80.0-100.0); Monocytes # (auto) 0.5 10 ^3/uL (0-1.3); Monocytes % (auto) 5.6 % (0.0-12.0); Neutrophils # (auto) 5.6 10 ^3/uL (1.6-8.6); Neutrophils % (auto) 61.7 % (37.0-80.0); Red Blood Cells 4.54 10^6/uL (4.0-5.20); Red Cell Distribution Width 13.3 % (11.8-14.3); White Blood Cell 9.1 10^3/uL (4.4-10.8)
[2021-09-27 12:03] LABS: Albumin 3.7 g/dL (3.4-5.0); BUN/Creatinine Ratio 16.3; Bilirubin, Total 0.7 mg/dL (0.2-1.0); Calcium 9.4 mg/dL (8.5-10.1); Total Protein 7.5 g/dL (6.4-8.2)
[2021-09-27 12:39] LABS: Urine Bacteria MANY /hpf (None Seen); Urine Blood Negative /uL (Negative); Urine Mucus FEW (None Seen); Urine Specific Gravity 1.016 (1.001-1.035); Urine WBC 343 /hpf (0 - 5); Urine WBC Clumps PRESENT /hpf (None Seen)
[~2021-09-30] VITALS: Ht 162.6 cm; Wt 99.3 kg
[~2021-09-30] MED LIST changes: +LIDOCAINE 2% (LOCAL ANESTH.) PF 5ml SDV ONE; +MIDAZOLAM HCL 2MG/2ML 2ml VIAL (1mg/ml) ONE; +ONDANSETRON HCL 4 MG/2 ML VIAL IV PRN; +ONDANSETRON HCL 4 MG/2 ML VIAL ONE; +PROPOFOL 10 MG/ML 20 ML IV ONE; +TRAM-300 PO; +VANCOMYCIN HCL 1000 MG VL ONE; +ePHEDrine SULFATE 50 MG/ML AMP ONE; +fentaNYL CITRATE 100 MCG/2 ML VL ONE
[2021-09-30 09:25] VITALS: BP 112/40
== END | disposition home or self-care (01) ==
LOC: SUR 06:22
PROVIDERS: ATTEND Urology
DX: N20.0 Calculus of kidney (principal); E11.22 Type 2 diabetes mellitus with diabetic chronic kidney disease; N18.9 Chronic kidney disease, unspecified; F41.9 Anxiety disorder, unspecified; F32.9 Major depressive disorder, single episode, unspecified; G47.33 Obstructive sleep apnea (adult) (pediatric); M10.9 Gout, unspecified; Z98.890 Other specified postprocedural states; Z79.899 Other long term (current) drug therapy; Z88.0 Allergy status to penicillin; Z88.1 Allergy status to other antibiotic agents; Z20.822 Contact with and (suspected) exposure to COVID-19
CPT/HCPCS: 36415; 50590; 80053; 81001; 82962; 85025; J2001; J2250; J2405; J2704; J3010; U0003

== ENCOUNTER 2022-01-25 10:55 | Emergency (ER) | payer MEDICARE, MEDICAID ==
[~2022-01-25] VITALS: Ht 162.6 cm; Wt 100.2 kg
[~2022-01-25 10:55] MED LIST changes: -LIDOCAINE 2% (LOCAL ANESTH.) PF 5ml SDV ONE; -MIDAZOLAM HCL 2MG/2ML 2ml VIAL (1mg/ml) ONE; -ONDANSETRON HCL 4 MG/2 ML VIAL IV PRN; -ONDANSETRON HCL 4 MG/2 ML VIAL ONE; -PROPOFOL 10 MG/ML 20 ML IV ONE; -VANCOMYCIN HCL 1000 MG VL ONE; -ePHEDrine SULFATE 50 MG/ML AMP ONE; -fentaNYL CITRATE 100 MCG/2 ML VL ONE
[2022-01-25 11:30] VITALS: BP 146/87
[2022-01-25 12:12] LABS: Urine Bacteria FEW /hpf (None Seen); Urine Blood 2+ /uL (Negative); Urine Mucus FEW (None Seen); Urine Specific Gravity 1.021 (1.001-1.035); Urine WBC 799 /hpf (0 - 5); Urine WBC Clumps PRESENT /hpf (None Seen)
[2022-01-25] MEDS ORDERED: cefTRIAXone 1GM/50ML D5W 50 ML IV ONE (12:30)
[2022-01-25] MEDS ORDERED: NITR-87 PO (13:04)
== END 2022-01-25 13:36 | disposition home or self-care (01) ==
LOC: ER 10:55
DX: N39.0 Urinary tract infection, site not specified (principal); I12.9 Hypertensive chronic kidney disease with stage 1 through stage 4 chronic kidney disease, or unspecified chronic kidney disease; E11.22 Type 2 diabetes mellitus with diabetic chronic kidney disease; N18.9 Chronic kidney disease, unspecified; E78.5 Hyperlipidemia, unspecified; M10.9 Gout, unspecified; Z87.442 Personal history of urinary calculi; Z79.899 Other long term (current) drug therapy; Z88.0 Allergy status to penicillin; Z88.1 Allergy status to other antibiotic agents; Z88.2 Allergy status to sulfonamides
CPT/HCPCS: 81001; 87086; 96365; 99284; J0696; J7030

== ENCOUNTER 2022-01-26 12:50 | Emergency (ER) | payer MEDICARE, MEDICAID ==
[~2022-01-26] VITALS: Ht 162.6 cm; Wt 113.4 kg
[~2022-01-26 12:50] MED LIST changes: +NITR-87 PO
[2022-01-26 15:01] LABS: Urine Bacteria FEW /hpf (None Seen); Urine Blood 1+ /uL (Negative); Urine Specific Gravity 1.014 (1.001-1.035); Urine WBC 188 /hpf (0 - 5); Urine WBC Clumps PRESENT /hpf (None Seen)
[2022-01-26 16:00] VITALS: BP 133/93
[2022-01-26] MEDS ORDERED: cefTRIAXone 1GM/50ML D5W 50 ML IV ONE (16:15)
== END 2022-01-26 17:57 | disposition home or self-care (01) ==
LOC: ER 12:50
DX: N39.0 Urinary tract infection, site not specified (principal); I12.9 Hypertensive chronic kidney disease with stage 1 through stage 4 chronic kidney disease, or unspecified chronic kidney disease; E11.22 Type 2 diabetes mellitus with diabetic chronic kidney disease; N18.9 Chronic kidney disease, unspecified; E78.5 Hyperlipidemia, unspecified; M10.9 Gout, unspecified; Z79.899 Other long term (current) drug therapy; Z88.0 Allergy status to penicillin; Z88.1 Allergy status to other antibiotic agents; Z88.2 Allergy status to sulfonamides
CPT/HCPCS: 81001; 96365; 99284; J0696

== ENCOUNTER 2022-01-30 12:50 | Inpatient (IN) | payer MEDICARE, MEDICAID ==
[~2022-01-30] VITALS: Ht 162.6 cm; Wt 102.9 kg
[2022-01-30] MEDS ORDERED: SODIUM CHLORIDE 0.9% 1,000 ML IVB ONE (13:15)
[2022-01-30 13:33] LABS: Basophils # (auto) 0.1 10 ^3/uL (0-0.2); Basophils % (auto) 1.4 % (0.0-2.0); Eosinophils # (auto) 0.2 10 ^3/uL (0-0.8); Eosinophils % (auto) 2.4 % (0.0-7.0); Hematocrit 41.6 % (36.0-46.0); Hemoglobin 14.1 g/dL (12.2-16.2); Lymphocytes # (auto) 2.5 10 ^3/uL (0.4-5.4); Lymphocytes % (auto) 25.9 % (10.0-50.0); Mean Corpuscular Hemoglobin 30.2 pg (28.0-32.0); Mean Corpuscular Hgb Conc. 33.9 g/dL (32.0-36.0); Mean Corpuscular Volume 89.1 fL (80.0-100.0); Monocytes # (auto) 0.5 10 ^3/uL (0-1.3); Monocytes % (auto) 5.5 % (0.0-12.0); Neutrophils # (auto) 6.2 10 ^3/uL (1.6-8.6); Neutrophils % (auto) 64.8 % (37.0-80.0); Nucleated Red Blood Cells % 0.1 %; Red Blood Cells 4.67 10^6/uL (4.0-5.20); Red Cell Distribution Width 14.2 % (11.8-14.3); White Blood Cell 9.6 10^3/uL (4.4-10.8)
[2022-01-30 13:47] LABS: Albumin 3.8 g/dL (3.4-5.0); Potassium 3.5 mmol/L (3.5-5.1)
[2022-01-30 13:51] LABS: BUN/Creatinine Ratio 15.1; Bilirubin, Total 0.7 mg/dL (0.2-1.0); Total Protein 7.8 g/dL (6.4-8.2)
[2022-01-30 15:14] LABS: Urine Bacteria FEW /hpf (None Seen); Urine Blood 2+ /uL (Negative); Urine Specific Gravity 1.018 (1.001-1.035); Urine WBC 72 /hpf (0 - 5)
[2022-01-30] MEDS ORDERED: cefTRIAXone 1GM/50ML D5W 50 ML IV ONE (17:15)
[2022-01-30] MEDS ORDERED: DOCUSATE SOD 100 MG CAP PO PRN (22:00)
[2022-01-30] MEDS ORDERED: ACETAMINOPHEN 325 MG TAB PO PRN (22:00)
[2022-01-30] MEDS ORDERED: HYDROcodone-ACET 5/325MG TAB PO PRN (22:00)
[2022-01-30] MEDS ORDERED: ONDANSETRON HCL 4 MG/2 ML VIAL IV PRN (22:00)
[2022-01-30] MEDS ORDERED: DEXTROSE (50%) 50ML SYRG IV PRN (22:00)
[2022-01-30] MEDS ORDERED: diphenhdrAMINE HCL 50 MG/1 ML VL IV PRN (22:15)
[2022-01-30] MEDS: CEFEPIME 2 GM in D5W 5% 50 ML IV SCH (23:04)
[2022-01-30] MEDS: InsuLIN REG 1unit/0.01ml Soln (100units/ml) SC SCH (23:04)
[2022-01-30] MEDS: SOD CHL 0.45% 1,000 ML IV SCH (23:04)
[2022-01-30] MEDS: ACCU-CHEK COMFORT CURVE STRIP VI SCH (23:04)
[2022-01-30] MEDS ORDERED: MORPHINE SULFATE INJ 2 MG/ml SYRG IV PRN (23:15)
[2022-01-30] MEDS ORDERED: NITROGLYCERIN 0.4 MG SL TAB SL PRN (23:15)
[2022-01-31 05:00] VITALS: BP 125/65
[2022-01-31 05:26] LABS: Basophils # (auto) 0.1 10 ^3/uL (0-0.2); Basophils % (auto) 0.6 % (0.0-2.0); Eosinophils # (auto) 0.2 10 ^3/uL (0-0.8); Eosinophils % (auto) 2.5 % (0.0-7.0); Hematocrit 37.4 % (36.0-46.0); Hemoglobin 12.6 g/dL (12.2-16.2); Lymphocytes # (auto) 2.3 10 ^3/uL (0.4-5.4); Lymphocytes % (auto) 26.7 % (10.0-50.0); Mean Corpuscular Hemoglobin 30.1 pg (28.0-32.0); Mean Corpuscular Hgb Conc. 33.8 g/dL (32.0-36.0); Monocytes # (auto) 0.5 10 ^3/uL (0-1.3); Monocytes % (auto) 6.2 % (0.0-12.0); Neutrophils # (auto) 5.5 10 ^3/uL (1.6-8.6); Red Cell Distribution Width 13.9 % (11.8-14.3); White Blood Cell 8.6 10^3/uL (4.4-10.8)
[2022-01-31 05:34] LABS: Albumin 3.2 g/dL (3.4-5.0); Calcium 8.2 mg/dL (8.5-10.1); Potassium 3.5 mmol/L (3.5-5.1)
[2022-01-31 05:37] LABS: BUN/Creatinine Ratio 16.2; Bilirubin, Total 0.7 mg/dL (0.2-1.0); Total Protein 6.7 g/dL (6.4-8.2)
[2022-01-31] MEDS: ACCU-CHEK COMFORT CURVE STRIP VI SCH ×4 (06:31→21:43)
[2022-01-31] MEDS: InsuLIN REG 1unit/0.01ml Soln (100units/ml) SC SCH ×4 (06:32→21:50)
[2022-01-31 09:00] VITALS: BP_SYST 123; BP_SYST 131; BP_DIAS 58; BP_DIAS 71
[2022-01-31] MEDS: FAMOTIDINE (10MG/ML) 2ML VL IV SCH (13:14)
[2022-01-31] MEDS: ENOXAPARIN SOD 40 MG/0.4 ML SYRINGE SC SCH (13:14)
[2022-01-31] MEDS: SOD CHL 0.45% 1,000 ML IV SCH (14:21)
[2022-01-31] MEDS: CEFEPIME 2 GM in D5W 5% 50 ML IV SCH (14:21)
[2022-01-31 17:15] VITALS: BP_SYST 140; BP_SYST 146; BP_DIAS 60
[2022-01-31] MEDS ORDERED: FLUV100T15 PO (20:44)
[2022-01-31] MEDS ORDERED: ALLO100T PO (20:44)
[2022-01-31] MEDS ORDERED: NUTRTAB41 OR (20:44)
[2022-01-31 22:00] VITALS: BP 145/73
[2022-02-01] MEDS ORDERED: CEFEPIME 2 GM in D5W 5% 50 ML IV SCH (02:00)
[2022-02-01 05:00] VITALS: BP 116/58
[2022-02-01] MEDS: ACCU-CHEK COMFORT CURVE STRIP VI SCH ×4 (06:14→21:14)
[2022-02-01] MEDS: InsuLIN REG 1unit/0.01ml Soln (100units/ml) SC SCH ×4 (06:15→22:05)
[2022-02-01 07:04] LABS: Potassium 3.5 mmol/L (3.5-5.1)
[2022-02-01] MEDS: SOD CHL 0.45% 1,000 ML IV SCH ×2 (08:00→14:00)
[2022-02-01 09:00] VITALS: BP 129/60
[2022-02-01] MEDS: ENOXAPARIN SOD 40 MG/0.4 ML SYRINGE SC SCH (09:34)
[2022-02-01] MEDS: FAMOTIDINE (10MG/ML) 2ML VL IV SCH (09:34)
[2022-02-01 13:00] VITALS: BP 136/67
[2022-02-01] MEDS: traMADol HCL 50 MG TAB PO PRN ×2 (16:00→22:16)
[2022-02-01 17:00] VITALS: BP 128/65
[2022-02-01 22:00] VITALS: BP 158/74
[2022-02-02 05:00] VITALS: BP 135/52
[2022-02-02] MEDS: ACCU-CHEK COMFORT CURVE STRIP VI SCH ×2 (06:35→12:10)
[2022-02-02] MEDS: InsuLIN REG 1unit/0.01ml Soln (100units/ml) SC SCH ×2 (06:38→12:06)
[2022-02-02] MEDS ORDERED: cefTRIAXone 1GM/50ML D5W 50 ML IV SCH (09:00)
[2022-02-02] MEDS: FAMOTIDINE (10MG/ML) 2ML VL IV SCH (09:08)
[2022-02-02] MEDS: ENOXAPARIN SOD 40 MG/0.4 ML SYRINGE SC SCH (09:09)
[2022-02-02 13:00] VITALS: BP 120/61
[2022-02-02] MEDS ORDERED: CEFD300C2 PO (15:03)
[2022-02-02] MEDS ORDERED: TAMS0.4C36 PO (15:04)
[2022-02-02 15:45] VITALS: BP 119/99
== END 2022-02-02 16:30 | disposition home or self-care (01) | DRG 690 ==
LOC: ER 12:50 → WEST WING 23:07
PROVIDERS: ADMIT Nurse Practitioner Family; ATTEND Internal Medicine
DX: N30.00 Acute cystitis without hematuria (principal); N20.0 Calculus of kidney; E66.01 Morbid (severe) obesity due to excess calories; E11.65 Type 2 diabetes mellitus with hyperglycemia; M10.9 Gout, unspecified; I12.9 Hypertensive chronic kidney disease with stage 1 through stage 4 chronic kidney disease, or unspecified chronic kidney disease; E78.5 Hyperlipidemia, unspecified; E11.22 Type 2 diabetes mellitus with diabetic chronic kidney disease; N18.9 Chronic kidney disease, unspecified; Z20.822 Contact with and (suspected) exposure to COVID-19; F32.A Depression, unspecified; F41.9 Anxiety disorder, unspecified; Z88.1 Allergy status to other antibiotic agents; Z88.0 Allergy status to penicillin; Z68.38 Body mass index [BMI] 38.0-38.9, adult; Z87.442 Personal history of urinary calculi; Z87.440 Personal history of urinary (tract) infections; Z88.2 Allergy status to sulfonamides; Z79.84 Long term (current) use of oral hypoglycemic drugs
CPT/HCPCS: 36415; 74176; 80053; 80061; 81001; 82962; 83036; 83735; 84132; 84443; 85025; 87040; 87086; 96361; 96365; G0378; J0696; J1815; J3490; J7042; J7060

== ENCOUNTER 2022-02-07 13:04 | Inpatient (IN) | payer MEDICARE, MEDICAID ==
[~2022-02-07] VITALS: Ht 162.6 cm; Wt 95.7 kg
[~2022-02-07 13:04] MED LIST changes: +ALLO100T PO; +CEFD300C2 PO; +TAMS0.4C36 PO
[2022-02-07 14:44] LABS: Basophils # (auto) 0.2 10 ^3/uL (0-0.2); Basophils % (auto) 1.7 % (0.0-2.0); Eosinophils # (auto) 0.1 10 ^3/uL (0-0.8); Eosinophils % (auto) 1.4 % (0.0-7.0); Hematocrit 44.1 % (36.0-46.0); Hemoglobin 14.7 g/dL (12.2-16.2); Lymphocytes # (auto) 2.7 10 ^3/uL (0.4-5.4); Lymphocytes % (auto) 26.2 % (10.0-50.0); Mean Corpuscular Hgb Conc. 33.3 g/dL (32.0-36.0); Mean Corpuscular Volume 90.1 fL (80.0-100.0); Monocytes # (auto) 0.5 10 ^3/uL (0-1.3); Monocytes % (auto) 5.3 % (0.0-12.0); Neutrophils # (auto) 6.8 10 ^3/uL (1.6-8.6); Neutrophils % (auto) 65.4 % (37.0-80.0); Red Blood Cells 4.89 10^6/uL (4.0-5.20); Red Cell Distribution Width 14.1 % (11.8-14.3); White Blood Cell 10.3 10^3/uL (4.4-10.8)
[2022-02-07 14:45] LABS: Urine Bacteria FEW /hpf (None Seen); Urine Blood 1+ /uL (Negative); Urine Mucus FEW (None Seen); Urine Specific Gravity 1.015 (1.001-1.035); Urine WBC 62 /hpf (0 - 5)
[2022-02-07 15:23] LABS: Albumin 3.9 g/dL (3.4-5.0); Calcium 9.4 mg/dL (8.5-10.1); Potassium 3.7 mmol/L (3.5-5.1)
[2022-02-07 15:26] LABS: BUN/Creatinine Ratio 16.1; Bilirubin, Total 0.9 mg/dL (0.2-1.0); Total Protein 8.2 g/dL (6.4-8.2)
[2022-02-07] MEDS ORDERED: MEROPENEM 1GM IVPB 100 ML IV ONE (16:15)
[2022-02-07] MEDS ORDERED: HYDROcodone-ACET 5/325MG TAB PO PRN (17:30)
[2022-02-07] MEDS ORDERED: DOCUSATE SOD 100 MG CAP PO PRN (17:30)
[2022-02-07] MEDS ORDERED: ACETAMINOPHEN 325 MG TAB PO PRN (17:30)
[2022-02-07] MEDS ORDERED: DEXTROSE (50%) 50ML SYRG IV PRN (17:30)
[2022-02-07] MEDS ORDERED: NITROGLYCERIN 0.4 MG SL TAB SL PRN (17:45)
[2022-02-07] MEDS ORDERED: MORPHINE SULFATE INJ 2 MG/ml SYRG IV PRN (17:45)
[2022-02-07] MEDS: SODIUM CHLORIDE 0.9% 1,000 ML IV SCH (18:25)
[2022-02-07] MEDS: MEROPENEM 1GM IVPB 100 ML IV SCH (18:25)
[2022-02-07] MEDS: ACCU-CHEK COMFORT CURVE STRIP VI SCH (22:19)
[2022-02-07] MEDS: InsuLIN REG 1unit/0.01ml Soln (100units/ml) SC SCH (22:20)
[2022-02-07] MEDS: ASCORBIC ACID 500 MG TAB PO SCH (22:22)
[2022-02-07 23:38] VITALS: BP 114/79
[2022-02-08] MEDS: MEROPENEM 1GM IVPB 100 ML IV SCH ×2 (02:10→09:23)
[2022-02-08 05:21] VITALS: BP 133/70
[2022-02-08 05:50] LABS: Basophils # (auto) 0.1 10 ^3/uL (0-0.2); Basophils % (auto) 1.2 % (0.0-2.0); Eosinophils # (auto) 0.2 10 ^3/uL (0-0.8); Eosinophils % (auto) 2.4 % (0.0-7.0); Hemoglobin 13.3 g/dL (12.2-16.2); Lymphocytes # (auto) 2.6 10 ^3/uL (0.4-5.4); Lymphocytes % (auto) 29.3 % (10.0-50.0); Mean Corpuscular Hemoglobin 29.9 pg (28.0-32.0); Mean Corpuscular Hgb Conc. 33.3 g/dL (32.0-36.0); Mean Corpuscular Volume 89.7 fL (80.0-100.0); Monocytes # (auto) 0.7 10 ^3/uL (0-1.3); Monocytes % (auto) 7.3 % (0.0-12.0); Neutrophils # (auto) 5.3 10 ^3/uL (1.6-8.6); Neutrophils % (auto) 59.8 % (37.0-80.0); Red Blood Cells 4.46 10^6/uL (4.0-5.20); Red Cell Distribution Width 13.7 % (11.8-14.3); White Blood Cell 8.9 10^3/uL (4.4-10.8)
[2022-02-08 06:11] LABS: Albumin 3.3 g/dL (3.4-5.0); Calcium 8.7 mg/dL (8.5-10.1); Potassium 3.7 mmol/L (3.5-5.1)
[2022-02-08] MEDS: ACCU-CHEK COMFORT CURVE STRIP VI SCH ×4 (06:24→22:16)
[2022-02-08] MEDS: InsuLIN REG 1unit/0.01ml Soln (100units/ml) SC SCH ×4 (06:29→22:18)
[2022-02-08 07:17] LABS: Bilirubin, Total 0.8 mg/dL (0.2-1.0); Total Protein 6.8 g/dL (6.4-8.2)
[2022-02-08] MEDS: ONDANSETRON HCL 4 MG/2 ML VIAL IV PRN (07:24)
[2022-02-08 08:00] VITALS: BP 129/65
[2022-02-08] MEDS: ENOXAPARIN SOD 40 MG/0.4 ML SYRINGE SC SCH (09:22)
[2022-02-08] MEDS: MULTIPLE VITAMIN TAB PO SCH (09:22)
[2022-02-08] MEDS: ZINC SULFATE 220mg CAP or TAB PO SCH (09:22)
[2022-02-08] MEDS: ASCORBIC ACID 500 MG TAB PO SCH ×2 (09:22→22:16)
[2022-02-08] MEDS: SODIUM CHLORIDE 0.9% 1,000 ML IV SCH (09:23)
[2022-02-08 12:00] VITALS: BP 116/64
[2022-02-08] MEDS ORDERED: cefTRIAXone 1GM/50ML D5W 50 ML IV ONE (13:15)
[2022-02-08 16:00] VITALS: BP 115/65
[2022-02-08 22:00] VITALS: BP 121/74
[2022-02-09] MEDS: SODIUM CHLORIDE 0.9% 1,000 ML IV SCH ×2 (02:50→20:30)
[2022-02-09 05:00] VITALS: BP 129/77
[2022-02-09] MEDS: ACCU-CHEK COMFORT CURVE STRIP VI SCH ×4 (05:32→23:23)
[2022-02-09] MEDS: InsuLIN REG 1unit/0.01ml Soln (100units/ml) SC SCH ×4 (05:42→23:41)
[2022-02-09] MEDS: ONDANSETRON HCL 4 MG/2 ML VIAL IV PRN ×2 (05:43→10:00)
[2022-02-09 08:00] VITALS: BP 136/61
[2022-02-09] MEDS: cefTRIAXone 1GM/50ML D5W 50 ML IV SCH (09:21)
[2022-02-09] MEDS: ZINC SULFATE 220mg CAP or TAB PO SCH (10:33)
[2022-02-09] MEDS: MULTIPLE VITAMIN TAB PO SCH (10:33)
[2022-02-09] MEDS: ASCORBIC ACID 500 MG TAB PO SCH ×2 (10:33→23:23)
[2022-02-09] MEDS: ENOXAPARIN SOD 40 MG/0.4 ML SYRINGE SC SCH (10:34)
[2022-02-09 12:00] VITALS: BP_SYST 115; BP_SYST 155; BP_DIAS 55
[2022-02-09 16:00] VITALS: BP 117/69
[2022-02-09] MEDS ORDERED: POM PO (17:36)
[2022-02-09 22:00] VITALS: BP 130/70
[2022-02-09] MEDS: FLUVOXAMINE MALEATE 100 MG PO SCH (23:23)
[2022-02-10 04:46] VITALS: BP 124/64
[2022-02-10] MEDS: ACCU-CHEK COMFORT CURVE STRIP VI SCH ×4 (06:47→21:33)
[2022-02-10] MEDS: InsuLIN REG 1unit/0.01ml Soln (100units/ml) SC SCH ×4 (07:07→21:48)
[2022-02-10 09:00] VITALS: BP 124/54
[2022-02-10] MEDS: ASCORBIC ACID 500 MG TAB PO SCH ×2 (09:22→21:33)
[2022-02-10] MEDS: MULTIPLE VITAMIN TAB PO SCH (09:22)
[2022-02-10] MEDS: ZINC SULFATE 220mg CAP or TAB PO SCH (09:22)
[2022-02-10] MEDS: ENOXAPARIN SOD 40 MG/0.4 ML SYRINGE SC SCH (09:22)
[2022-02-10] MEDS: cefTRIAXone 1GM/50ML D5W 50 ML IV SCH (09:23)
[2022-02-10] MEDS: SODIUM CHLORIDE 0.9% 1,000 ML IV SCH (12:49)
[2022-02-10 13:00] VITALS: BP 124/68
[2022-02-10 17:00] VITALS: BP 120/63
[2022-02-10] MEDS: FLUVOXAMINE MALEATE 100 MG PO SCH (21:33)
[2022-02-10 22:24] VITALS: BP 125/62
[2022-02-11] MEDS: SODIUM CHLORIDE 0.9% 1,000 ML IV SCH (04:50)
[2022-02-11 05:11] VITALS: BP 114/66
[2022-02-11] MEDS: InsuLIN REG 1unit/0.01ml Soln (100units/ml) SC SCH ×2 (06:42→12:12)
[2022-02-11] MEDS: ACCU-CHEK COMFORT CURVE STRIP VI SCH ×2 (06:46→12:20)
[2022-02-11 08:39] VITALS: BP 136/74
[2022-02-11] MEDS: ENOXAPARIN SOD 40 MG/0.4 ML SYRINGE SC SCH (08:44)
[2022-02-11] MEDS: ZINC SULFATE 220mg CAP or TAB PO SCH (08:44)
[2022-02-11] MEDS: ASCORBIC ACID 500 MG TAB PO SCH (08:44)
[2022-02-11] MEDS: MULTIPLE VITAMIN TAB PO SCH (08:44)
[2022-02-11] MEDS: cefTRIAXone 1GM/50ML D5W 50 ML IV SCH (08:45)
[2022-02-11] MEDS ORDERED: NITR-87 PO (09:37)
[2022-02-11 12:09] VITALS: BP 131/68
[2022-02-11] MEDS ORDERED: TRAM50TA2 PO (12:31)
== END 2022-02-11 14:41 | disposition home or self-care (01) | DRG 690 ==
LOC: ER 13:04 → OVERFLOW 17:45 → EAST 23:24
PROVIDERS: ADMIT Nurse Practitioner Family; ATTEND Family Medicine
DX: N39.0 Urinary tract infection, site not specified (principal); E66.01 Morbid (severe) obesity due to excess calories; E11.22 Type 2 diabetes mellitus with diabetic chronic kidney disease; E78.5 Hyperlipidemia, unspecified; I12.9 Hypertensive chronic kidney disease with stage 1 through stage 4 chronic kidney disease, or unspecified chronic kidney disease; N18.9 Chronic kidney disease, unspecified; F41.9 Anxiety disorder, unspecified; Z20.822 Contact with and (suspected) exposure to COVID-19; F32.A Depression, unspecified; M10.9 Gout, unspecified; Z68.36 Body mass index [BMI] 36.0-36.9, adult; Z87.440 Personal history of urinary (tract) infections; Z87.442 Personal history of urinary calculi; Z88.1 Allergy status to other antibiotic agents; Z88.0 Allergy status to penicillin; Z88.2 Allergy status to sulfonamides; Z79.84 Long term (current) use of oral hypoglycemic drugs
CPT/HCPCS: 36415; 80053; 81001; 82962; 85025; 87081; 87086; G0378; J0696; J1815; J2185; J2405

== ENCOUNTER 2022-04-03 09:48 | Day surgery (SDC) | payer MEDICARE, MEDICAID ==
[2022-04-01 12:59] LABS: Urine Bacteria NONE SEEN /hpf (None Seen); Urine Blood Negative /uL (Negative); Urine Specific Gravity 1.017 (1.001-1.035); Urine WBC 2 /hpf (0 - 5)
[2022-04-01 13:17] LABS: Basophils # (auto) 0.1 10 ^3/uL (0-0.2); Basophils % (auto) 0.9 % (0.0-2.0); Eosinophils # (auto) 0.2 10 ^3/uL (0-0.8); Eosinophils % (auto) 2.5 % (0.0-7.0); Hematocrit 42.7 % (36.0-46.0); Hemoglobin 14.2 g/dL (12.2-16.2); Lymphocytes # (auto) 2.5 10 ^3/uL (0.4-5.4); Lymphocytes % (auto) 26.7 % (10.0-50.0); Mean Corpuscular Hemoglobin 29.6 pg (28.0-32.0); Mean Corpuscular Hgb Conc. 33.2 g/dL (32.0-36.0); Mean Corpuscular Volume 89.2 fL (80.0-100.0); Monocytes # (auto) 0.5 10 ^3/uL (0-1.3); Monocytes % (auto) 5.4 % (0.0-12.0); Neutrophils # (auto) 6.1 10 ^3/uL (1.6-8.6); Neutrophils % (auto) 64.5 % (37.0-80.0); Red Blood Cells 4.79 10^6/uL (4.0-5.20); Red Cell Distribution Width 13.5 % (11.8-14.3); White Blood Cell 9.5 10^3/uL (4.4-10.8)
[2022-04-01 13:18] LABS: INR 0.9 (0.9-1.15); Partial Thromboplastin Time 28.8 sec (24.6-33.4)
[2022-04-01 13:57] LABS: Potassium 3.7 mmol/L (3.5-5.1)
[2022-04-01 14:13] LABS: Albumin 3.6 g/dL (3.4-5.0); BUN/Creatinine Ratio 15.9; Bilirubin, Total 1.1 mg/dL (0.2-1.0); Calcium 9.4 mg/dL (8.5-10.1); Total Protein 7.8 g/dL (6.4-8.2)
[~2022-04-03] VITALS: Ht 162.6 cm; Wt 99.8 kg
[~2022-04-03 09:48] MED LIST changes: -ALLO100T PO; -NITR-87 PO; +PROM25TA5 OR; -TAMS0.4C36 PO; -TRAM-711 PO; +TRAM50TA2 PO
[2022-04-03] MEDS ORDERED: VANCOMYCIN HCL 1000 MG VL ONE (10:26)
[2022-04-03] MEDS ORDERED: ONDANSETRON HCL 4 MG/2 ML VIAL IV ONE ×2 (11:50→11:54)
[2022-04-03] MEDS ORDERED: ONDANSETRON HCL 4 MG/2 ML VIAL ONE (11:52)
[2022-04-03] MEDS ORDERED: MEPERIDINE HCL (25 MG/ML) 1ML VIAL ONE (12:58)
[2022-04-03] MEDS ORDERED: MIDAZOLAM HCL 2MG/2ML 2ml VIAL (1mg/ml) ONE (12:58)
[2022-04-03] MEDS ORDERED: fentaNYL CITRATE 100 MCG/2 ML VL ONE (12:58)
[2022-04-03] MEDS ORDERED: DexAMETHasone SOD PHOS 10MG/1ML VIAL INJ ONE (13:11)
[2022-04-03] MEDS ORDERED: PROPOFOL 10 MG/ML 20 ML IV ONE (13:15)
[2022-04-03] MEDS ORDERED: ePHEDrine SULFATE 50 MG/ML AMP IV PRN (14:15)
[2022-04-03] MEDS ORDERED: MIDAZOLAM HCL 2MG/2ML 2ml VIAL (1mg/ml) IV PRN (14:15)
[2022-04-03] MEDS ORDERED: ONDANSETRON HCL 4 MG/2 ML VIAL IV PRN (14:15)
[2022-04-03] MEDS ORDERED: HYDROmorphone HCL 2 MG/ML VL/or syr IV PRN (14:15)
[2022-04-03] MEDS ORDERED: MORPHINE SULFATE 4 MG/ML SYR/VIAL IV PRN (14:15)
[2022-04-03] MEDS ORDERED: METOCLOPRAMIDE HCL 5MG/ml INJ 2ml VIAL IV PRN (14:15)
[2022-04-03] MEDS ORDERED: LABETALOL HCL 5 MG/ML 4ML SYRINGE IV PRN (14:15)
[2022-04-03 14:30] VITALS: BP 134/74
== END 2022-04-03 14:37 | disposition home or self-care (01) ==
LOC: SUR 09:48
PROVIDERS: ATTEND Urology
DX: N20.0 Calculus of kidney (principal); E11.9 Type 2 diabetes mellitus without complications; M10.9 Gout, unspecified; F32.A Depression, unspecified; I10 Essential (primary) hypertension; I25.10 Atherosclerotic heart disease of native coronary artery without angina pectoris; E66.9 Obesity, unspecified; F41.9 Anxiety disorder, unspecified; Z88.2 Allergy status to sulfonamides; Z88.0 Allergy status to penicillin; Z68.37 Body mass index [BMI] 37.0-37.9, adult; Z82.49 Family history of ischemic heart disease and other diseases of the circulatory system; Z80.3 Family history of malignant neoplasm of breast; Z81.8 Family history of other mental and behavioral disorders; Z20.822 Contact with and (suspected) exposure to COVID-19
CPT/HCPCS: 36415; 50590; 80053; 81001; 82962; 85025; 85610; 85730; 86850; 86900; 86901; C1769; J1100; J2175; J2250; J2405; J2704; J3010; J3370; J7030; J7050; U0003

== ENCOUNTER 2022-04-07 15:40 | Emergency (ER) | payer MEDICARE, MEDICAID ==
[~2022-04-07] VITALS: Ht 162.6 cm; Wt 99.9 kg
[2022-04-07 16:54] VITALS: BP 117/69
[2022-04-07 19:16] LABS: Urine Bacteria FEW /hpf (None Seen); Urine Blood 2+ /uL (Negative); Urine Budding Yeast OCCASIONAL /hpf (None Seen); Urine Mucus FEW (None Seen); Urine Specific Gravity 1.015 (1.001-1.035); Urine WBC 196 /hpf (0 - 5)
== END 2022-04-07 18:01 | disposition left against medical advice (07) ==
LOC: ER 15:40
DX: R11.2 Nausea with vomiting, unspecified (principal); Z53.21 Procedure and treatment not carried out due to patient leaving prior to being seen by health care provider
CPT/HCPCS: 81001

== ENCOUNTER → 2022-04-17 | Outpatient (CLI) | payer MEDICARE, MEDICAID | END | disposition home or self-care (01) | LOC: LAB 11:56 | PROVIDERS: ATTEND Urology | DX: N20.0 Calculus of kidney (principal) ==

== ENCOUNTER → 2022-07-14 | Outpatient (CLI) | payer MEDICARE, MEDICAID | END | disposition home or self-care (01) | LOC: Rad HDHVI 10:05 | PROVIDERS: ATTEND Internal Medicine | DX: I07.1 Rheumatic tricuspid insufficiency (principal); R06.02 Shortness of breath; R07.89 Other chest pain | CPT/HCPCS: 93306 ==

== ENCOUNTER → 2022-07-28 | Outpatient (CLI) | payer MEDICARE, MEDICAID ==
[2022-07-28 12:23] LABS: Urine Blood Negative /uL (Negative); Urine Specific Gravity 1.024 (1.001-1.035)
[2022-07-28 12:26] LABS: Basophils # (auto) 0.1 10 ^3/uL (0-0.2); Basophils % (auto) 0.7 % (0.0-2.0); Eosinophils # (auto) 0.3 10 ^3/uL (0-0.8); Eosinophils % (auto) 3.1 % (0.0-7.0); Hematocrit 40.4 % (36.0-46.0); Hemoglobin 13.5 g/dL (12.2-16.2); Lymphocytes # (auto) 2.7 10 ^3/uL (0.4-5.4); Lymphocytes % (auto) 29.7 % (10.0-50.0); Mean Corpuscular Hemoglobin 29.5 pg (28.0-32.0); Mean Corpuscular Hgb Conc. 33.4 g/dL (32.0-36.0); Mean Corpuscular Volume 88.3 fL (80.0-100.0); Monocytes # (auto) 0.5 10 ^3/uL (0-1.3); Monocytes % (auto) 5.7 % (0.0-12.0); Neutrophils # (auto) 5.5 10 ^3/uL (1.6-8.6); Neutrophils % (auto) 60.8 % (37.0-80.0); Nucleated Red Blood Cells % 0.1 %; Red Blood Cells 4.57 10^6/uL (4.0-5.20); Red Cell Distribution Width 13.7 % (11.8-14.3)
[2022-07-28 12:39] LABS: Albumin 3.3 g/dL (3.4-5.0); BUN/Creatinine Ratio 11.6; Bilirubin, Total 0.7 mg/dL (0.2-1.0); Calcium 9.1 mg/dL (8.5-10.1); Total Protein 6.6 g/dL (6.4-8.2)
[2022-07-28 12:52] LABS: Free T4 (Free Thyroxine) 1.12 ng/dL (0.89-1.76)
== END | disposition home or self-care (01) ==
LOC: LAB 08:41
PROVIDERS: ATTEND Internal Medicine
DX: R07.89 Other chest pain (principal); E55.9 Vitamin D deficiency, unspecified; D51.3 Other dietary vitamin B12 deficiency anemia; D64.9 Anemia, unspecified; E11.9 Type 2 diabetes mellitus without complications; I10 Essential (primary) hypertension; R00.2 Palpitations; R53.1 Weakness; R30.0 Dysuria
CPT/HCPCS: 36415; 80053; 80061; 81003; 82306; 82607; 83036; 84439; 84443; 85025; 87086

== ENCOUNTER 2022-12-17 11:08 | Inpatient (IN) | payer MEDICARE, MEDICAID ==
[~2022-12-17] VITALS: Ht 162.6 cm; Wt 109.6 kg
[2022-12-17 12:01] LABS: Basophils # (auto) 0.1 10 ^3/uL (0-0.2); Basophils % (auto) 0.9 % (0.0-2.0); Eosinophils # (auto) 0.2 10 ^3/uL (0-0.8); Eosinophils % (auto) 1.8 % (0.0-7.0); Hematocrit 43.5 % (36.0-46.0); Lymphocytes # (auto) 2.3 10 ^3/uL (0.4-5.4); Lymphocytes % (auto) 25.7 % (10.0-50.0); Mean Corpuscular Hemoglobin 29.9 pg (28.0-32.0); Mean Corpuscular Hgb Conc. 34.5 g/dL (32.0-36.0); Mean Corpuscular Volume 86.5 fL (80.0-100.0); Monocytes # (auto) 0.4 10 ^3/uL (0-1.3); Monocytes % (auto) 4.1 % (0.0-12.0); Neutrophils # (auto) 6.1 10 ^3/uL (1.6-8.6); Neutrophils % (auto) 67.5 % (37.0-80.0); Nucleated Red Blood Cells % 0.1 %; Red Blood Cells 5.03 10^6/uL (4.0-5.20); Red Cell Distribution Width 14.3 % (11.8-14.3); White Blood Cell 9.1 10^3/uL (4.4-10.8)
[2022-12-17] MEDS ORDERED: ONDANSETRON HCL 4 MG/2 ML VIAL IV ONE (12:15)
[2022-12-17] MEDS ORDERED: TAMSULOSIN HYDROCHLORIDE 0.4 MG CAP PO ONE (12:15)
[2022-12-17] MEDS ORDERED: KETOROLAC TROMETH 30 MG/ML 1ML VIAL IV ONE (12:15)
[2022-12-17] MEDS ORDERED: MAGNESIUM SULFATE 1GM/100ML 100 ML IV ONE ×2 (12:15→14:30)
[2022-12-17] MEDS ORDERED: LACTATED RINGER'S 1,000 ML IV ONE (12:15)
[2022-12-17 12:17] LABS: Albumin 3.6 g/dL (3.4-5.0); Calcium 8.6 mg/dL (8.5-10.1); Potassium 3.7 mmol/L (3.5-5.1)
[2022-12-17 12:21] LABS: BUN/Creatinine Ratio 12.4 (10.0-20.0); Bilirubin, Total 0.9 mg/dL (0.2-1.0); Total Protein 7.6 g/dL (6.4-8.2)
[2022-12-17 13:35] LABS: Urine Bacteria FEW /hpf (None Seen); Urine Blood Negative /uL (Negative); Urine Specific Gravity 1.031 (1.001-1.035); Urine WBC 13 /hpf (0 - 5)
[2022-12-17] MEDS ORDERED: cefTRIAXone 1GM/50ML D5W 50 ML IV ONE (14:30)
[2022-12-17] MEDS ORDERED: DOCUSATE SOD 100 MG CAP PO PRN (17:30)
[2022-12-17] MEDS ORDERED: MORPHINE SULFATE INJ 2 MG/ml SYRG IV PRN (17:30)
[2022-12-17] MEDS ORDERED: DEXTROSE (50%) 50ML SYRG IV PRN (17:45)
[2022-12-17] MEDS: SODIUM CHLORIDE 0.9% 1,000 ML IV SCH (20:37)
[2022-12-17] MEDS: ONDANSETRON HCL 4 MG/2 ML VIAL IV PRN (21:19)
[2022-12-17] MEDS: TAMSULOSIN HYDROCHLORIDE 0.4 MG CAP PO SCH (21:19)
[2022-12-17] MEDS: ACCU-CHEK COMFORT CURVE STRIP VI SCH (23:00)
[2022-12-17] MEDS: InsuLIN REG 1unit/0.01ml Soln (100units/ml) SC SCH (23:03)
[2022-12-18 06:02] LABS: Basophils # (auto) 0.1 10 ^3/uL (0-0.2); Basophils % (auto) 0.8 % (0.0-2.0); Eosinophils # (auto) 0.3 10 ^3/uL (0-0.8); Hematocrit 39.4 % (36.0-46.0); Hemoglobin 13.4 g/dL (12.2-16.2); Lymphocytes # (auto) 2.4 10 ^3/uL (0.4-5.4); Lymphocytes % (auto) 26.9 % (10.0-50.0); Mean Corpuscular Hemoglobin 29.2 pg (28.0-32.0); Mean Corpuscular Volume 85.9 fL (80.0-100.0); Monocytes # (auto) 0.6 10 ^3/uL (0-1.3); Monocytes % (auto) 6.6 % (0.0-12.0); Neutrophils # (auto) 5.5 10 ^3/uL (1.6-8.6); Neutrophils % (auto) 62.7 % (37.0-80.0); Nucleated Red Blood Cells % 0.1 %; Red Blood Cells 4.58 10^6/uL (4.0-5.20); Red Cell Distribution Width 14.4 % (11.8-14.3); White Blood Cell 8.8 10^3/uL (4.4-10.8)
[2022-12-18 06:22] LABS: Albumin 3.1 g/dL (3.4-5.0); BUN/Creatinine Ratio 17.4 (10.0-20.0); Potassium 3.8 mmol/L (3.5-5.1)
[2022-12-18 06:24] LABS: Bilirubin, Total 0.7 mg/dL (0.2-1.0); Total Protein 6.1 g/dL (6.4-8.2)
[2022-12-18] MEDS: ACCU-CHEK COMFORT CURVE STRIP VI SCH ×4 (07:00→21:28)
[2022-12-18] MEDS: InsuLIN REG 1unit/0.01ml Soln (100units/ml) SC SCH ×4 (08:00→21:35)
[2022-12-18] MEDS: SODIUM CHLORIDE 0.9% 1,000 ML IV SCH ×3 (08:43→21:28)
[2022-12-18] MEDS: cefTRIAXone 1GM/50ML D5W 50 ML IV SCH (08:44)
[2022-12-18 12:00] VITALS: BP 117/63
[2022-12-18] MEDS: ONDANSETRON HCL 4 MG/2 ML VIAL IV PRN (14:56)
[2022-12-18 16:00] VITALS: BP 121/54
[2022-12-18 17:48] VITALS: BP 121/54
[2022-12-18] MEDS: TAMSULOSIN HYDROCHLORIDE 0.4 MG CAP PO SCH (18:00)
[2022-12-18 22:00] VITALS: BP 110/60
[2022-12-19 05:00] VITALS: BP 123/66
[2022-12-19] MEDS: SODIUM CHLORIDE 0.9% 1,000 ML IV SCH ×3 (06:32→19:30)
[2022-12-19] MEDS: ACCU-CHEK COMFORT CURVE STRIP VI SCH ×4 (06:32→21:17)
[2022-12-19] MEDS: InsuLIN REG 1unit/0.01ml Soln (100units/ml) SC SCH ×4 (06:37→21:23)
[2022-12-19 08:00] VITALS: BP 135/80
[2022-12-19] MEDS: ONDANSETRON HCL 4 MG/2 ML VIAL IV PRN (09:11)
[2022-12-19] MEDS: cefTRIAXone 1GM/50ML D5W 50 ML IV SCH (09:11)
[2022-12-19 12:00] VITALS: BP 141/80
[2022-12-19 16:00] VITALS: BP 126/72
[2022-12-19] MEDS: TAMSULOSIN HYDROCHLORIDE 0.4 MG CAP PO SCH (18:00)
[2022-12-19] MEDS: FLUVOXAMINE 100 MG PO SCH (21:16)
[2022-12-19 22:00] VITALS: BP 114/54
[2022-12-20] MEDS: SODIUM CHLORIDE 0.9% 1,000 ML IV SCH ×3 (01:25→20:40)
[2022-12-20] MEDS: ONDANSETRON HCL 4 MG/2 ML VIAL IV PRN (04:42)
[2022-12-20 05:00] VITALS: BP 149/83
[2022-12-20] MEDS: ACCU-CHEK COMFORT CURVE STRIP VI SCH ×4 (06:13→21:54)
[2022-12-20] MEDS: InsuLIN REG 1unit/0.01ml Soln (100units/ml) SC SCH ×4 (06:15→21:50)
[2022-12-20 09:00] VITALS: BP 146/75
[2022-12-20] MEDS: cefTRIAXone 1GM/50ML D5W 50 ML IV SCH (09:10)
[2022-12-20 13:00] VITALS: BP 146/83
[2022-12-20 17:00] VITALS: BP 137/81
[2022-12-20] MEDS: TAMSULOSIN HYDROCHLORIDE 0.4 MG CAP PO SCH (17:49)
[2022-12-20] MEDS: FLUVOXAMINE 100 MG PO SCH (21:41)
[2022-12-20 22:00] VITALS: BP 128/58
[2022-12-21 05:00] VITALS: BP 131/71
[2022-12-21] MEDS: SODIUM CHLORIDE 0.9% 1,000 ML IV SCH ×2 (05:40→13:10)
[2022-12-21] MEDS: InsuLIN REG 1unit/0.01ml Soln (100units/ml) SC SCH ×4 (05:42→21:09)
[2022-12-21] MEDS: ACCU-CHEK COMFORT CURVE STRIP VI SCH ×4 (05:43→21:09)
[2022-12-21] MEDS: cefTRIAXone 1GM/50ML D5W 50 ML IV SCH (08:32)
[2022-12-21 09:00] VITALS: BP 122/51
[2022-12-21] MEDS ORDERED: HYDROcodone-ACET 5/325MG TAB PO PRN (09:30)
[2022-12-21] MEDS ORDERED: ALPRAZolam 0.25 MG TAB PO PRN (10:45)
[2022-12-21 13:24] VITALS: BP 129/72
[2022-12-21 17:20] VITALS: BP 136/76
[2022-12-21] MEDS: TAMSULOSIN HYDROCHLORIDE 0.4 MG CAP PO SCH (18:05)
[2022-12-21] MEDS: FLUVOXAMINE 100 MG PO SCH (21:06)
[2022-12-21 22:00] VITALS: BP 128/78
[2022-12-22 05:00] VITALS: BP_SYST 117; BP_SYST 142; BP_DIAS 66; BP_DIAS 89
[2022-12-22] MEDS: SODIUM CHLORIDE 0.9% 1,000 ML IV SCH ×2 (05:42→14:50)
[2022-12-22 06:13] LABS: Basophils # (auto) 0.1 10 ^3/uL (0-0.2); Eosinophils # (auto) 0.3 10 ^3/uL (0-0.8); Eosinophils % (auto) 3.6 % (0.0-7.0); Hematocrit 37.5 % (36.0-46.0); Hemoglobin 12.6 g/dL (12.2-16.2); Lymphocytes # (auto) 2.3 10 ^3/uL (0.4-5.4); Mean Corpuscular Hemoglobin 29.2 pg (28.0-32.0); Mean Corpuscular Hgb Conc. 33.6 g/dL (32.0-36.0); Mean Corpuscular Volume 86.9 fL (80.0-100.0); Monocytes # (auto) 0.4 10 ^3/uL (0-1.3); Monocytes % (auto) 5.6 % (0.0-12.0); Neutrophils # (auto) 4.4 10 ^3/uL (1.6-8.6); Neutrophils % (auto) 58.8 % (37.0-80.0); Nucleated Red Blood Cells % 0.1 %; Red Blood Cells 4.31 10^6/uL (4.0-5.20); Red Cell Distribution Width 14.3 % (11.8-14.3); White Blood Cell 7.5 10^3/uL (4.4-10.8)
[2022-12-22 06:18] LABS: INR 0.97 (0.9-1.15); Partial Thromboplastin Time 27.9 sec (24.6-33.4)
[2022-12-22 06:44] LABS: BUN/Creatinine Ratio 13.9 (10.0-20.0); Calcium 8.6 mg/dL (8.5-10.1); Potassium 3.9 mmol/L (3.5-5.1)
[2022-12-22] MEDS: InsuLIN REG 1unit/0.01ml Soln (100units/ml) SC SCH ×4 (07:00→20:56)
[2022-12-22] MEDS: ACCU-CHEK COMFORT CURVE STRIP VI SCH ×4 (07:00→20:56)
[2022-12-22 08:00] VITALS: BP 156/76
[2022-12-22] MEDS: cefTRIAXone 1GM/50ML D5W 50 ML IV SCH (08:29)
[2022-12-22 08:45] VITALS: BP 156/76
[2022-12-22 12:50] VITALS: BP 139/80
[2022-12-22 16:45] VITALS: BP 114/50
[2022-12-22] MEDS: TAMSULOSIN HYDROCHLORIDE 0.4 MG CAP PO SCH (17:04)
[2022-12-22] MEDS: FLUVOXAMINE 100 MG PO SCH (20:53)
[2022-12-23 06:08] LABS: Calcium 8.2 mg/dL (8.5-10.1); Potassium 3.5 mmol/L (3.5-5.1)
[2022-12-23] MEDS: SODIUM CHLORIDE 0.9% 1,000 ML IV SCH ×2 (06:08→08:04)
[2022-12-23] MEDS: InsuLIN REG 1unit/0.01ml Soln (100units/ml) SC SCH ×2 (06:16→11:35)
[2022-12-23] MEDS: ACCU-CHEK COMFORT CURVE STRIP VI SCH ×2 (06:19→11:34)
[2022-12-23 08:00] VITALS: BP 141/80
[2022-12-23] MEDS: cefTRIAXone 1GM/50ML D5W 50 ML IV SCH (08:03)
[2022-12-23 09:00] VITALS: BP 141/80
[2022-12-23] MEDS ORDERED: CEFD300C2 PO (10:22)
[2022-12-23 13:37] VITALS: BP 141/80
== END 2022-12-23 15:04 | disposition home or self-care (01) | DRG 690 ==
LOC: ER 11:08 → OVERFLOW 17:34 → CENTRAL 12-18 12:00
PROVIDERS: ADMIT Nurse Practitioner Family; ATTEND Internal Medicine Geriatric Medicine
DX: N10 Acute pyelonephritis (principal); E87.1 Hypo-osmolality and hyponatremia; N17.9 Acute kidney failure, unspecified; E11.65 Type 2 diabetes mellitus with hyperglycemia; N20.0 Calculus of kidney; E11.22 Type 2 diabetes mellitus with diabetic chronic kidney disease; E66.01 Morbid (severe) obesity due to excess calories; F32.A Depression, unspecified; E78.5 Hyperlipidemia, unspecified; I12.9 Hypertensive chronic kidney disease with stage 1 through stage 4 chronic kidney disease, or unspecified chronic kidney disease; K76.0 Fatty (change of) liver, not elsewhere classified; M10.9 Gout, unspecified; I25.10 Atherosclerotic heart disease of native coronary artery without angina pectoris; N18.9 Chronic kidney disease, unspecified; Z80.3 Family history of malignant neoplasm of breast; Z88.0 Allergy status to penicillin; Z87.891 Personal history of nicotine dependence; Z79.84 Long term (current) use of oral hypoglycemic drugs; Z68.38 Body mass index [BMI] 38.0-38.9, adult; Z88.8 Allergy status to other drugs, medicaments and biological substances; Z87.442 Personal history of urinary calculi
CPT/HCPCS: 36415; 74176; 80048; 80053; 81001; 82962; 83036; 85025; 85610; 85730; 87086; 96375; G0378; J0696; J1815; J1885; J2405

== ENCOUNTER 2023-01-26 07:48 | Day surgery (SDC) | payer MEDICARE, MEDICAID ==
[2023-01-22 13:03] LABS: Basophils # (auto) 0.1 10 ^3/uL (0-0.2); Basophils % (auto) 1.3 % (0.0-2.0); Eosinophils # (auto) 0.3 10 ^3/uL (0-0.8); Eosinophils % (auto) 3.8 % (0.0-7.0); Hematocrit 43.2 % (36.0-46.0); Hemoglobin 14.3 g/dL (12.2-16.2); Lymphocytes # (auto) 2.8 10 ^3/uL (0.4-5.4); Lymphocytes % (auto) 33.5 % (10.0-50.0); Mean Corpuscular Hgb Conc. 33.2 g/dL (32.0-36.0); Mean Corpuscular Volume 87.2 fL (80.0-100.0); Monocytes # (auto) 0.5 10 ^3/uL (0-1.3); Monocytes % (auto) 6.4 % (0.0-12.0); Neutrophils # (auto) 4.6 10 ^3/uL (1.6-8.6); Nucleated Red Blood Cells % 0.1 %; Red Blood Cells 4.95 10^6/uL (4.0-5.20); Red Cell Distribution Width 14.3 % (11.8-14.3); White Blood Cell 8.4 10^3/uL (4.4-10.8)
[2023-01-22 13:26] LABS: INR 0.94 (0.9-1.15); Partial Thromboplastin Time 28.7 sec (24.6-33.4)
[2023-01-22 13:38] LABS: Albumin 3.7 g/dL (3.4-5.0); Calcium 8.8 mg/dL (8.5-10.1); Potassium 3.9 mmol/L (3.5-5.1)
[2023-01-22 13:41] LABS: BUN/Creatinine Ratio 13.2 (10.0-20.0); Bilirubin, Total 0.9 mg/dL (0.2-1.0); Total Protein 7.4 g/dL (6.4-8.2)
[2023-01-22 13:57] LABS: Urine Bacteria FEW /hpf (None Seen); Urine Blood TRACE /uL (Negative); Urine Specific Gravity 1.019 (1.001-1.035); Urine WBC 55 /hpf (0 - 5)
[~2023-01-26] VITALS: Ht 162.6 cm; Wt 102.5 kg
[~2023-01-26 07:48] MED LIST changes: +GLIM-38 PO; -GLIM-5 PO; -NUTRTAB41 OR; +PROM25TA10 OR; -PROM25TA5 OR; -TRAM50TA2 PO
[2023-01-26] MEDS ORDERED: VANCOMYCIN HCL 1000 MG VL ONE (09:18)
[2023-01-26] MEDS ORDERED: MIDAZOLAM HCL 2MG/2ML 2ml VIAL (1mg/ml) ONE (11:13)
[2023-01-26] MEDS ORDERED: fentaNYL CITRATE 100 MCG/2 ML VL ONE (11:13)
[2023-01-26] MEDS ORDERED: PROPOFOL 10 MG/ML 20 ML IV ONE (11:16)
[2023-01-26] MEDS ORDERED: LIDOCAINE 2% (LOCAL ANESTH.) PF 5ml SDV ONE (11:17)
[2023-01-26] MEDS ORDERED: ONDANSETRON HCL 4 MG/2 ML VIAL ONE (11:17)
[2023-01-26] MEDS ORDERED: ONDANSETRON HCL 4 MG/2 ML VIAL IV PRN (12:00)
[2023-01-26] MEDS ORDERED: HYDROmorphone HCL 2 MG/ML VL/or syr IV PRN (12:00)
[2023-01-26 13:22] VITALS: BP 118/63
== END 2023-01-26 13:29 | disposition home or self-care (01) ==
LOC: SUR 07:48
PROVIDERS: ATTEND Urology
DX: N20.0 Calculus of kidney (principal); E11.9 Type 2 diabetes mellitus without complications
CPT/HCPCS: 36415; 50590; 80053; 81001; 82962; 85025; 85610; 85730; 87086; 87088; 87186; C1769; J2001; J2250; J2405; J2704; J3010; J3370; J7030; J7050

== ENCOUNTER → 2023-05-05 15:24 | Emergency (ER) | payer MEDICARE, MEDICAID ==
[~2023-05-05] VITALS: Ht 162.6 cm; Wt 100.8 kg
[~2023-05-05 15:24] MED LIST changes: +KETOROLAC TROMETH 30 MG/ML 1ML VIAL IV ONE; +NITR-87 PO; +ONDANSETRON HCL 4 MG/2 ML VIAL IV ONE; +SODIUM CHLORIDE 0.9% 1,000 ML IVB ONE
[2023-05-05 18:10] LABS: Urine Bacteria FEW /hpf (None Seen); Urine Blood Negative /uL (Negative); Urine Clarity HAZY (Clear); Urine Color Yellow (Yellow); Urine Mucus FEW (None Seen); Urine Protein, UAD 1+ (Negative); Urine Specific Gravity 1.028 (1.001-1.035); Urine Urobilinogen Normal (Negative); Urine WBC 105 /hpf (0 - 5)
[2023-05-05 20:01] VITALS: BP 134/77; PULSE 83; RESP 18; O2SAT 94
== END | disposition home or self-care (01) ==
LOC: ER 15:24
DX: R30.0 Dysuria (principal); I12.9 Hypertensive chronic kidney disease with stage 1 through stage 4 chronic kidney disease, or unspecified chronic kidney disease; E11.22 Type 2 diabetes mellitus with diabetic chronic kidney disease; N18.9 Chronic kidney disease, unspecified; M10.9 Gout, unspecified; E78.5 Hyperlipidemia, unspecified; Z87.442 Personal history of urinary calculi; Z79.899 Other long term (current) drug therapy; Z88.0 Allergy status to penicillin; Z88.1 Allergy status to other antibiotic agents; Z88.2 Allergy status to sulfonamides
CPT/HCPCS: 74176; 81001; 96361; 96374; 96375; 99285; J1885; J2405; J7030

== ENCOUNTER → 2023-07-20 | Outpatient (CLI) | payer MEDICARE ==
[~2023-07-20] MED LIST changes: +ACET-1080 PO; +DOXY-447 PO; -KETOROLAC TROMETH 30 MG/ML 1ML VIAL IV ONE; -ONDANSETRON HCL 4 MG/2 ML VIAL IV ONE; -SODIUM CHLORIDE 0.9% 1,000 ML IVB ONE
[2023-07-20 10:11] LABS: Urine Bacteria FEW /hpf (None Seen); Urine Blood Negative /uL (Negative); Urine Budding Yeast MANY /hpf (None Seen); Urine Clarity CLOUDY (Clear); Urine Color Yellow (Yellow); Urine Mucus FEW (None Seen); Urine Protein, UAD TRACE (Negative); Urine Specific Gravity 1.024 (1.001-1.035); Urine Urobilinogen Normal (Negative); Urine WBC 49 /hpf (0 - 5); Urine pH 5.5 (5.0-8.0)
== END | disposition home or self-care (01) ==
LOC: LAB 06:58
PROVIDERS: ATTEND Urology
DX: R30.0 Dysuria (principal)
CPT/HCPCS: 81001; 87086

== ENCOUNTER 2023-07-22 10:11 | Inpatient (IN) | payer MEDICARE, MEDICAID ==
[~2023-07-22] VITALS: Ht 162.6 cm; Wt 95.0 kg
[2023-07-22 10:33] VITALS: O2SAT 95
[2023-07-22 11:55] LABS: Basophils # (auto) 0.1 10 ^3/uL (0-0.2); Eosinophils # (auto) 0.2 10 ^3/uL (0-0.8); Eosinophils % (auto) 1.8 % (0.0-7.0); Hematocrit 40.6 % (36.0-46.0); Hemoglobin 13.6 g/dL (12.2-16.2); Lymphocytes # (auto) 2.3 10 ^3/uL (0.4-5.4); Mean Corpuscular Hgb Conc. 33.5 g/dL (32.0-36.0); Mean Corpuscular Volume 89.7 fL (80.0-100.0); Monocytes # (auto) 0.4 10 ^3/uL (0-1.3); Neutrophils # (auto) 7.9 10 ^3/uL (1.6-8.6); Neutrophils % (auto) 72.2 % (37.0-80.0); Nucleated Red Blood Cells % 0.1 %; Red Blood Cells 4.53 10^6/uL (4.0-5.20); Red Cell Distribution Width 13.9 % (11.8-14.3); White Blood Cell 10.9 10^3/uL (4.4-10.8)
[2023-07-22 13:08] LABS: Urine Bacteria FEW /hpf (None Seen); Urine Blood 1+ /uL (Negative); Urine Clarity HAZY (Clear); Urine Color Yellow (Yellow); Urine Hyaline Cast FEW /lpf (0 - 2); Urine Mucus FEW (None Seen); Urine Protein, UAD TRACE (Negative); Urine Specific Gravity 1.021 (1.001-1.035); Urine Urobilinogen Normal (Negative); Urine WBC 8 /hpf (0 - 5)
[2023-07-22 14:19] LABS: Alanine Aminotransferase 19 U/L (7-40); Albumin 4.5 g/dL (3.2-4.8); Alkaline Phosphatase 70 U/L (46-116); Anion Gap 10 (5-15); Aspartate Aminotransferase 17 U/L (13-40); BUN/Creatinine Ratio 11.6 (10.0-20.0); Blood Urea Nitrogen 10 mg/dL (9-23); Calcium 9.5 mg/dL (8.5-10.1); Carbon Dioxide 23 mmol/L (20-30); Chloride 107 mmol/L (98-107); Glucose 199 mg/dL (74-106); Potassium 3.7 mmol/L (3.5-5.1); Sodium 140 mmol/L (136-145); Total Protein 7.1 g/dL (5.7-8.2)
[2023-07-22] MEDS ORDERED: IOHEXOL 300 MG/ML 100ML BOTTLE IJ ONE (14:27)
[2023-07-22] MEDS ORDERED: MORPHINE SULFATE INJ 2 MG/ml SYRG IV PRN (17:30)
[2023-07-22] MEDS ORDERED: DOCUSATE SOD 100 MG CAP PO PRN (17:30)
[2023-07-22] MEDS ORDERED: ONDANSETRON HCL 4 MG/2 ML VIAL IV PRN (17:30)
[2023-07-22] MEDS: SODIUM CHLORIDE 0.9% 1,000 ML IV SCH (17:30)
[2023-07-22 19:58] VITALS: PULSE 88; RESP 20; O2SAT 95
[2023-07-22] MEDS: cefTRIAXone 1GM/50ML D5W 50 ML IV SCH (20:01)
[2023-07-22] MEDS: FLUCONAZOLE 200MG/100ML 100 ML IV SCH (20:07)
[2023-07-22 23:58] VITALS: BP 129/72; PULSE 68; RESP 16; TEMP 98.4; O2SAT 100
[2023-07-23] VITALS (8 sets, daily range): BP systolic 132–149; BP diastolic 62–81; PULSE 69–77; RESP 16–20; TEMP 97.6–98.2; O2SAT 94–99
[2023-07-23] MEDS: SODIUM CHLORIDE 0.9% 1,000 ML IV SCH ×3 (04:14→18:30)
[2023-07-23] MEDS ORDERED: FLUV100T15 PO (04:54)
[2023-07-23 07:23] LABS: Alanine Aminotransferase 16 U/L (7-40); Alkaline Phosphatase 63 U/L (46-116); Anion Gap 9 (5-15); BUN/Creatinine Ratio 14.3 (10.0-20.0); Blood Urea Nitrogen 11 mg/dL (9-23); Carbon Dioxide 24 mmol/L (20-30); Chloride 108 mmol/L (98-107); Glucose 143 mg/dL (74-106); Potassium 3.3 mmol/L (3.5-5.1); Sodium 141 mmol/L (136-145)
[2023-07-23 07:24] LABS: Aspartate Aminotransferase 10 U/L (13-40)
[2023-07-23 07:25] LABS: Bilirubin, Total 0.8 mg/dL (0.2-1.0); Total Protein 6.2 g/dL (5.7-8.2)
[2023-07-23 07:30] LABS: Basophils # (auto) 0.1 10 ^3/uL (0-0.2); Basophils % (auto) 0.6 % (0.0-2.0); Eosinophils # (auto) 0.2 10 ^3/uL (0-0.8); Eosinophils % (auto) 1.9 % (0.0-7.0); Hematocrit 36.5 % (36.0-46.0); Hemoglobin 12.3 g/dL (12.2-16.2); Lymphocytes # (auto) 2.4 10 ^3/uL (0.4-5.4); Lymphocytes % (auto) 22.9 % (10.0-50.0); Mean Corpuscular Hemoglobin 30.2 pg (28.0-32.0); Mean Corpuscular Hgb Conc. 33.8 g/dL (32.0-36.0); Mean Corpuscular Volume 89.6 fL (80.0-100.0); Monocytes # (auto) 0.6 10 ^3/uL (0-1.3); Monocytes % (auto) 5.6 % (0.0-12.0); Neutrophils # (auto) 7.1 10 ^3/uL (1.6-8.6); Red Blood Cells 4.08 10^6/uL (4.0-5.20); Red Cell Distribution Width 13.9 % (11.8-14.3); White Blood Cell 10.4 10^3/uL (4.4-10.8)
[2023-07-23] MEDS: cefTRIAXone 1GM/50ML D5W 50 ML IV SCH (08:27)
[2023-07-23] MEDS: ALLOPURINOL 100 MG TAB PO SCH (08:28)
[2023-07-23] MEDS ORDERED: DEXTROSE (50%) 50ML SYRG IV PRN (12:15)
[2023-07-23] MEDS ORDERED: KETOROLAC TROMETH 30 MG/ML 1ML VIAL IV PRN (12:15)
[2023-07-23] MEDS: InsuLIN REG 1unit/0.01ml Soln (100units/ml) SC SCH (17:00)
[2023-07-23] MEDS: ACCU-CHEK COMFORT CURVE STRIP VI SCH ×2 (17:03→22:22)
[2023-07-23] MEDS: FLUCONAZOLE 200MG/100ML 100 ML IV SCH (20:00)
[2023-07-23] MEDS ORDERED: InsuLIN REG 1unit/0.01ml Soln (100units/ml) SC SCH (22:00)
[2023-07-24] MEDS: SODIUM CHLORIDE 0.9% 1,000 ML IV SCH ×2 (02:50→11:35)
[2023-07-24 04:58] VITALS: BP 134/84; PULSE 78; RESP 16; TEMP 98; O2SAT 96
[2023-07-24] MEDS: ACCU-CHEK COMFORT CURVE STRIP VI SCH ×2 (07:01→11:32)
[2023-07-24] MEDS: InsuLIN REG 1unit/0.01ml Soln (100units/ml) SC SCH ×2 (07:05→11:43)
[2023-07-24 09:00] VITALS: BP 128/70; PULSE 87; RESP 18; TEMP 97.8; O2SAT 92
[2023-07-24] MEDS: cefTRIAXone 1GM/50ML D5W 50 ML IV SCH (09:16)
[2023-07-24] MEDS: ALLOPURINOL 100 MG TAB PO SCH (09:18)
[2023-07-24] MEDS ORDERED: FLUVOXAMINE 100 MG PO SCH (10:00)
[2023-07-24 13:00] VITALS: BP 130/61; PULSE 77; RESP 18; TEMP 97; O2SAT 96
== END 2023-07-24 17:19 | disposition home health service (06) | DRG 690 ==
LOC: ER 10:11 → OVERFLOW 17:35 → WEST WING 22:43
PROVIDERS: ADMIT Nurse Practitioner Family; ATTEND Family Medicine
PROC: 05HC33Z Insertion of Infusion Device into Left Basilic Vein, Percutaneous Approach (ICD-10-PCS; principal; 2023-07-24)
PROC: B54NZZA Ultrasonography of Left Upper Extremity Veins, Guidance (ICD-10-PCS; 2023-07-24)
DX: N10 Acute pyelonephritis (principal); N20.0 Calculus of kidney; N18.9 Chronic kidney disease, unspecified; E11.22 Type 2 diabetes mellitus with diabetic chronic kidney disease; I12.9 Hypertensive chronic kidney disease with stage 1 through stage 4 chronic kidney disease, or unspecified chronic kidney disease; E66.01 Morbid (severe) obesity due to excess calories; M1A.9XX0 Chronic gout, unspecified, without tophus (tophi); Z68.35 Body mass index [BMI] 35.0-35.9, adult; F41.8 Other specified anxiety disorders; Z88.1 Allergy status to other antibiotic agents; Z88.0 Allergy status to penicillin; Z88.2 Allergy status to sulfonamides; Z88.8 Allergy status to other drugs, medicaments and biological substances; Z87.440 Personal history of urinary (tract) infections; Z87.442 Personal history of urinary calculi; Z88.3 Allergy status to other anti-infective agents
CPT/HCPCS: 36415; 74177; 80053; 81001; 82962; 83605; 85025; 86141; 87040; 87086; 96365; 96368; G0378; J1450; J1815; J2405

== ENCOUNTER → 2023-08-17 | Outpatient (CLI) | payer MEDICARE ==
[2023-08-17 11:57] LABS: Urine Bacteria NONE SEEN /hpf (None Seen); Urine Blood Negative /uL (Negative); Urine Clarity Clear (Clear); Urine Color Colorless (Yellow); Urine Protein, UAD Negative (Negative); Urine Specific Gravity 1.019 (1.001-1.035); Urine Urobilinogen Normal (Negative); Urine WBC 13 /hpf (0 - 5)
== END | disposition home or self-care (01) ==
LOC: LAB 11:33
PROVIDERS: ATTEND Urology
DX: N39.0 Urinary tract infection, site not specified (principal)
CPT/HCPCS: 81001; 87086

== ENCOUNTER 2023-09-03 07:25 | Day surgery (SDC) | payer MEDICARE, MEDICAID ==
[2023-09-01 11:44] LABS: Urine Epithelial Cast None Seen /hpf (<5)
[2023-09-01 11:56] LABS: Basophils # (auto) 0.1 10 ^3/uL (0-0.2); Eosinophils # (auto) 0.3 10 ^3/uL (0-0.8); Eosinophils % (auto) 2.7 % (0.0-7.0); Hematocrit 39.4 % (36.0-46.0); Hemoglobin 13.2 g/dL (12.2-16.2); Lymphocytes # (auto) 2.8 10 ^3/uL (0.4-5.4); Lymphocytes % (auto) 25.4 % (10.0-50.0); Mean Corpuscular Hemoglobin 30.3 pg (28.0-32.0); Mean Corpuscular Hgb Conc. 33.4 g/dL (32.0-36.0); Mean Corpuscular Volume 90.7 fL (80.0-100.0); Monocytes # (auto) 0.6 10 ^3/uL (0-1.3); Monocytes % (auto) 5.2 % (0.0-12.0); Neutrophils # (auto) 7.2 10 ^3/uL (1.6-8.6); Neutrophils % (auto) 65.7 % (37.0-80.0); Red Blood Cells 4.35 10^6/uL (4.0-5.20); Red Cell Distribution Width 13.8 % (11.8-14.3)
[2023-09-01 12:09] LABS: INR 0.98 (0.9-1.15); Partial Thromboplastin Time 29.3 SEC (24.5-34.5); Prothrombin Time 10.3 sec (9.3-11.8)
[2023-09-01 12:32] LABS: Alanine Aminotransferase 16 U/L (7-40); Alkaline Phosphatase 66 U/L (46-116); Anion Gap 10 (5-15); BUN/Creatinine Ratio 13.8 (10.0-20.0); Blood Urea Nitrogen 13 mg/dL (9-23); Calcium 9.9 mg/dL (8.5-10.1); Carbon Dioxide 22 mmol/L (20-30); Chloride 108 mmol/L (98-107); Glucose 143 mg/dL (74-106); Potassium 3.9 mmol/L (3.5-5.1); Sodium 140 mmol/L (136-145)
[2023-09-01 12:33] LABS: Albumin 4.7 g/dL (3.2-4.8)
[2023-09-01 12:34] LABS: Aspartate Aminotransferase 19 U/L (13-40); Bilirubin, Total 0.9 mg/dL (0.2-1.0); Total Protein 7.5 g/dL (5.7-8.2)
[2023-09-01 13:12] LABS: Urine Bacteria NONE SEEN /hpf (None Seen); Urine Blood Negative /uL (Negative); Urine Clarity Clear (Clear); Urine Color Yellow (Yellow); Urine Hyaline Cast FEW /lpf (0 - 2); Urine Protein, UAD Negative (Negative); Urine Specific Gravity 1.018 (1.001-1.035); Urine Urobilinogen Normal (Negative); Urine WBC 18 /hpf (0 - 5)
[~2023-09-03] VITALS: Ht 162.6 cm; Wt 98.9 kg
[~2023-09-03 07:25] MED LIST changes: -DOXY-447 PO; +INSUINJ18 SC; -NITR-87 PO; -TRAM-300 PO
[2023-09-03] MEDS ORDERED: PROPOFOL 10 MG/ML 20 ML IV ONE (07:38)
[2023-09-03] MEDS ORDERED: fentaNYL CITRATE 100 MCG/2 ML VL ONE (07:39)
[2023-09-03] MEDS ORDERED: cefTRIAXone 1GM/50ML D5W 50 ML IV ONE (08:14)
[2023-09-03] MEDS ORDERED: ONDANSETRON HCL 4 MG/2 ML VIAL ONE ×2 (08:15→09:43)
[2023-09-03 09:22] VITALS: TEMP 97.6
[2023-09-03] MEDS ORDERED: METOCLOPRAMIDE HCL 5MG/ml INJ 2ml VIAL IV PRN (09:30)
[2023-09-03] MEDS ORDERED: ONDANSETRON HCL 4 MG/2 ML VIAL IV PRN (09:30)
[2023-09-03 10:00] VITALS: BP 119/59; PULSE 80; RESP 16; O2SAT 97
== END 2023-09-03 10:14 | disposition home or self-care (01) ==
LOC: SUR 07:25
PROVIDERS: ATTEND Urology
DX: N20.0 Calculus of kidney (principal); I12.9 Hypertensive chronic kidney disease with stage 1 through stage 4 chronic kidney disease, or unspecified chronic kidney disease; E11.22 Type 2 diabetes mellitus with diabetic chronic kidney disease; N18.9 Chronic kidney disease, unspecified; F41.8 Other specified anxiety disorders; Z88.8 Allergy status to other drugs, medicaments and biological substances; Z88.0 Allergy status to penicillin; Z88.2 Allergy status to sulfonamides; Z82.49 Family history of ischemic heart disease and other diseases of the circulatory system; Z80.3 Family history of malignant neoplasm of breast; Z83.79 Family history of other diseases of the digestive system; Z79.4 Long term (current) use of insulin; Z79.84 Long term (current) use of oral hypoglycemic drugs; Z79.899 Other long term (current) drug therapy; Z98.890 Other specified postprocedural states
CPT/HCPCS: 36415; 50590; 80053; 81001; 82962; 85025; 85610; 85730; 87086; C1769; J0696; J2405; J2704; J3010; J7030

== ENCOUNTER 2023-09-12 12:48 | Inpatient (IN) | payer MEDICARE, MEDICAID ==
[~2023-09-12] VITALS: Ht 162.6 cm; Wt 103.5 kg
[2023-09-12 14:48] LABS: Urine Bacteria NONE SEEN /hpf (None Seen); Urine Blood Negative /uL (Negative); Urine Clarity Clear (Clear); Urine Color Yellow (Yellow); Urine Hyaline Cast FEW /lpf (0 - 2); Urine Protein, UAD Negative (Negative); Urine Specific Gravity 1.021 (1.001-1.035); Urine Urobilinogen Normal (Negative); Urine WBC 47 /hpf (0 - 5); Urine pH 5.5 (5.0-8.0)
[2023-09-12 15:05] LABS: Chloride 106 mmol/L (98-107); Potassium 3.9 mmol/L (3.5-5.1); Sodium 142 mmol/L (136-145)
[2023-09-12] MEDS: KETOROLAC TROMETH 60MG/2ML VIAL IM ONE (15:05)
[2023-09-12] MEDS: ONDANSETRON ODT 4 MG TAB PO ONE (15:05)
[2023-09-12 15:06] LABS: Anion Gap 10 (5-15); Basophils # (auto) 0.1 10 ^3/uL (0-0.2); Basophils % (auto) 0.7 % (0.0-2.0); Carbon Dioxide 26 mmol/L (20-30); Eosinophils # (auto) 0.4 10 ^3/uL (0-0.8); Eosinophils % (auto) 3.6 % (0.0-7.0); Hematocrit 43.2 % (36.0-46.0); Hemoglobin 14.2 g/dL (12.2-16.2); Lymphocytes # (auto) 2.3 10 ^3/uL (0.4-5.4); Lymphocytes % (auto) 22.9 % (10.0-50.0); Mean Corpuscular Hgb Conc. 32.7 g/dL (32.0-36.0); Mean Corpuscular Volume 91.8 fL (80.0-100.0); Monocytes # (auto) 0.5 10 ^3/uL (0-1.3); Monocytes % (auto) 5.2 % (0.0-12.0); Neutrophils # (auto) 6.9 10 ^3/uL (1.6-8.6); Neutrophils % (auto) 67.6 % (37.0-80.0); Nucleated Red Blood Cells % 0.1 %; Red Blood Cells 4.71 10^6/uL (4.0-5.20); White Blood Cell 10.2 10^3/uL (4.4-10.8)
[2023-09-12 15:07] LABS: Calcium 9.9 mg/dL (8.5-10.1)
[2023-09-12 15:11] LABS: BUN/Creatinine Ratio 19.2 (10.0-20.0); Blood Urea Nitrogen 19 mg/dL (9-23); Glucose 158 mg/dL (74-106)
[2023-09-12] MEDS: NITROFURANTOIN 100 mg CAP PO ONE (15:15)
[2023-09-12] MEDS ORDERED: DEXTROSE (50%) 50ML SYRG IV PRN (17:45)
[2023-09-12] MEDS ORDERED: DOCUSATE SOD 100 MG CAP PO PRN (17:45)
[2023-09-12] MEDS ORDERED: MORPHINE SULFATE INJ 2 MG/ml SYRG IV PRN (17:45)
[2023-09-12] MEDS ORDERED: LORazepam 0.5 MG TAB PO PRN (18:00)
[2023-09-12] MEDS: SODIUM CHLORIDE 0.9% 1,000 ML IV SCH (18:07)
[2023-09-12] MEDS: CEFTRIAXONE SODIUM 2 GM in D5W 5% 100 ML IV ONE (18:22)
[2023-09-12] MEDS: ACCU-CHEK COMFORT CURVE STRIP VI SCH (22:00)
[2023-09-12] MEDS: InsuLIN REG 1unit/0.01ml Soln (100units/ml) SC SCH (22:00)
[2023-09-12 23:42] VITALS: BP 121/70; PULSE 78; RESP 20; TEMP 98; O2SAT 94
[2023-09-13] VITALS (7 sets, daily range): BP systolic 105–126; BP diastolic 40–85; PULSE 72–89; RESP 16–20; TEMP 97.6–98.6; O2SAT 94–98
[2023-09-13] MEDS: ONDANSETRON HCL 4 MG/2 ML VIAL IV PRN (05:47)
[2023-09-13 07:19] LABS: Basophils # (auto) 0.1 10 ^3/uL (0-0.2); Basophils % (auto) 0.7 % (0.0-2.0); Eosinophils # (auto) 0.3 10 ^3/uL (0-0.8); Eosinophils % (auto) 3.8 % (0.0-7.0); Hematocrit 38.3 % (36.0-46.0); Hemoglobin 12.6 g/dL (12.2-16.2); Lymphocytes # (auto) 1.8 10 ^3/uL (0.4-5.4); Mean Corpuscular Hemoglobin 30.3 pg (28.0-32.0); Mean Corpuscular Volume 91.8 fL (80.0-100.0); Monocytes # (auto) 0.6 10 ^3/uL (0-1.3); Monocytes % (auto) 6.8 % (0.0-12.0); Neutrophils # (auto) 5.7 10 ^3/uL (1.6-8.6); Neutrophils % (auto) 67.7 % (37.0-80.0); Red Blood Cells 4.17 10^6/uL (4.0-5.20); Red Cell Distribution Width 13.8 % (11.8-14.3); White Blood Cell 8.5 10^3/uL (4.4-10.8)
[2023-09-13 07:46] LABS: Alanine Aminotransferase 15 U/L (7-40); Alkaline Phosphatase 56 U/L (46-116); Anion Gap 6 (5-15); BUN/Creatinine Ratio 18.8 (10.0-20.0); Blood Urea Nitrogen 18 mg/dL (9-23); Calcium 8.6 mg/dL (8.7-10.4); Carbon Dioxide 24 mmol/L (20-30); Chloride 110 mmol/L (98-107); Glucose 131 mg/dL (74-106); Potassium 3.8 mmol/L (3.5-5.1); Sodium 140 mmol/L (136-145)
[2023-09-13 07:47] LABS: Aspartate Aminotransferase 14 U/L (13-40); Bilirubin, Total 0.7 mg/dL (0.2-1.0); Total Protein 6.5 g/dL (5.7-8.2)
[2023-09-13] MEDS: cefTRIAXone 1GM/50ML D5W 50 ML IV SCH (09:27)
[2023-09-14 05:00] VITALS: BP_SYST 121; BP_SYST 127; BP_DIAS 61; BP_DIAS 70; PULSE 73; RESP 15; RESP 16; TEMP 97.6; TEMP 98.2; O2SAT 94; O2SAT 96
[2023-09-14 08:00] VITALS: BP 135/75; PULSE 70; RESP 18; TEMP 97.7; O2SAT 96
[2023-09-14 13:00] VITALS: BP 135/52; PULSE 74; RESP 20; TEMP 98.2; O2SAT 96
[2023-09-14] MEDS: KETOROLAC TROMETH 30 MG/ML 1ML VIAL IV PRN (13:02)
[2023-09-14 16:50] VITALS: BP 126/54; PULSE 74; RESP 19; TEMP 98.3; O2SAT 96
[2023-09-14 20:00] VITALS: PULSE 86; RESP 17; RESP 18; TEMP 36.8; O2SAT 96
[2023-09-14 22:00] VITALS: BP 138/70; PULSE 60; RESP 16; TEMP 98.3; O2SAT 92
[2023-09-15] VITALS (7 sets, daily range): BP systolic 114–155; BP diastolic 41–76; PULSE 55–73; RESP 16–96; TEMP 97.6–98.4; O2SAT 94–97
[2023-09-16 05:00] VITALS: BP 142/76; PULSE 69; RESP 16; TEMP 97.9; O2SAT 96
[2023-09-16 08:30] VITALS: BP 125/76; PULSE 63; RESP 20; TEMP 98.1; O2SAT 97
[2023-09-16] MEDS ORDERED: TRAM50TA2 PO (09:17)
[2023-09-16 13:30] VITALS: BP 112/70; PULSE 55; RESP 18; TEMP 97.9; O2SAT 98
[2023-09-16 16:30] VITALS: BP 146/72; PULSE 76; RESP 18; TEMP 97.9; O2SAT 95
[2023-09-16 16:43] VITALS: TEMP 36.6
[2023-09-16 17:24] VITALS: TEMP 36.6
== END 2023-09-16 17:55 | disposition home health service (06) | DRG 872 ==
LOC: ER 12:48 → OVERFLOW 17:44 → CENTRAL 22:57
PROVIDERS: ADMIT Nurse Practitioner Family; ATTEND Family Medicine
PROC: 05HD33Z Insertion of Infusion Device into Right Cephalic Vein, Percutaneous Approach (ICD-10-PCS; principal; 2023-09-15)
PROC: B54MZZA Ultrasonography of Right Upper Extremity Veins, Guidance (ICD-10-PCS; 2023-09-15)
DX: A41.9 Sepsis, unspecified organism (principal); N39.0 Urinary tract infection, site not specified; E66.01 Morbid (severe) obesity due to excess calories; E11.65 Type 2 diabetes mellitus with hyperglycemia; E78.5 Hyperlipidemia, unspecified; F32.A Depression, unspecified; F41.9 Anxiety disorder, unspecified; N18.9 Chronic kidney disease, unspecified; I12.9 Hypertensive chronic kidney disease with stage 1 through stage 4 chronic kidney disease, or unspecified chronic kidney disease; M1A.9XX0 Chronic gout, unspecified, without tophus (tophi); E11.22 Type 2 diabetes mellitus with diabetic chronic kidney disease; N20.0 Calculus of kidney; Z68.39 Body mass index [BMI] 39.0-39.9, adult; Z88.0 Allergy status to penicillin; Z88.2 Allergy status to sulfonamides; Z88.3 Allergy status to other anti-infective agents; Z87.442 Personal history of urinary calculi; Z87.440 Personal history of urinary (tract) infections
CPT/HCPCS: 36415; 74176; 80048; 80053; 81001; 82962; 85025; 87040; 87086; G0378; J0696; J1815; J1885; J2405; J7060; Q0162

== ENCOUNTER → 2023-09-17 | Outpatient (CLI) | payer MEDICARE ==
[~2023-09-17] MED LIST changes: +TRAM50TA2 PO
[2023-09-17 16:43] LABS: Urine Bacteria FEW /hpf (None Seen); Urine Blood Negative /uL (Negative); Urine Clarity Clear (Clear); Urine Color Colorless (Yellow); Urine Protein, UAD Negative (Negative); Urine Specific Gravity 1.016 (1.001-1.035); Urine Urobilinogen Normal (Negative); Urine WBC 6 /hpf (0 - 5)
== END | disposition home or self-care (01) ==
LOC: LAB 16:34
PROVIDERS: ATTEND Urology
DX: N20.0 Calculus of kidney (principal)
CPT/HCPCS: 81001; 87086

== ENCOUNTER → 2023-12-28 | Outpatient (CLI) | payer MEDICARE ==
[2023-12-28 14:35] LABS: Urine Bacteria FEW /hpf (None Seen); Urine Blood TRACE /uL (Negative); Urine Clarity Clear (Clear); Urine Color Light-Yellow (Yellow); Urine Protein, UAD Negative (Negative); Urine Specific Gravity 1.022 (1.001-1.035); Urine Urobilinogen Normal (Negative); Urine WBC 20 /hpf (0 - 5)
== END | disposition home or self-care (01) ==
LOC: LAB 14:22
PROVIDERS: ATTEND Urology
DX: N20.0 Calculus of kidney (principal)
CPT/HCPCS: 81001; 87086

== ENCOUNTER 2023-12-31 13:14 | Inpatient (IN) | payer MEDICARE, MEDICAID ==
[~2023-12-31] VITALS: Ht 162.6 cm; Wt 99.2 kg
[2023-12-31 14:41] LABS: Basophils # (auto) 0.1 10 ^3/uL (0-0.2); Basophils % (auto) 0.7 % (0.0-2.0); Eosinophils # (auto) 0.2 10 ^3/uL (0-0.8); Eosinophils % (auto) 1.7 % (0.0-7.0); Hematocrit 41.9 % (36.0-46.0); Hemoglobin 13.9 g/dL (12.2-16.2); Lymphocytes # (auto) 2.5 10 ^3/uL (0.4-5.4); Lymphocytes % (auto) 22.1 % (10.0-50.0); Mean Corpuscular Hemoglobin 29.6 pg (28.0-32.0); Mean Corpuscular Hgb Conc. 33.3 g/dL (32.0-36.0); Mean Corpuscular Volume 88.9 fL (80.0-100.0); Monocytes # (auto) 0.4 10 ^3/uL (0-1.3); Monocytes % (auto) 3.8 % (0.0-12.0); Neutrophils # (auto) 8.2 10 ^3/uL (1.6-8.6); Neutrophils % (auto) 71.7 % (37.0-80.0); Nucleated Red Blood Cells % 0.1 %; Red Blood Cells 4.71 10^6/uL (4.0-5.20); Red Cell Distribution Width 14.8 % (11.8-14.3); White Blood Cell 11.5 10^3/uL (4.4-10.8)
[2023-12-31 14:43] LABS: Urine Bacteria FEW /hpf (None Seen); Urine Blood 3+ /uL (Negative); Urine Clarity Turbid (Clear); Urine Color Light-Yellow (Yellow); Urine Protein, UAD TRACE (Negative); Urine Specific Gravity 1.021 (1.001-1.035); Urine Urobilinogen Normal (Negative); Urine WBC 23 /hpf (0 - 5)
[2023-12-31 14:57] LABS: Alanine Aminotransferase 17 U/L (7-40); Alkaline Phosphatase 75 U/L (46-116); Anion Gap 10 (5-15); Aspartate Aminotransferase 17 U/L (13-40); BUN/Creatinine Ratio 20.2 (10.0-20.0); Blood Urea Nitrogen 18 mg/dL (9-23); Calcium 10.2 mg/dL (8.5-10.1); Carbon Dioxide 23 mmol/L (20-30); Chloride 106 mmol/L (98-107); Glucose 141 mg/dL (74-106); Potassium 3.6 mmol/L (3.5-5.1); Sodium 139 mmol/L (136-145)
[2023-12-31 14:58] LABS: Albumin 4.9 g/dL (3.2-4.8)
[2023-12-31 14:59] LABS: Total Protein 7.9 g/dL (5.7-8.2)
[2023-12-31] MEDS: cefTRIAXone 1GM/50ML D5W 50 ML IV ONE (15:18)
[2023-12-31 16:35] VITALS: PULSE 82; RESP 14; O2SAT 98
[2023-12-31] MEDS ORDERED: MORPHINE SULFATE INJ 2 MG/ml SYRG IV PRN (19:45)
[2023-12-31] MEDS ORDERED: ACETAMINOPHEN 325 MG TAB PO PRN (19:45)
[2023-12-31] MEDS ORDERED: DEXTROSE (50%) 50ML SYRG IV PRN (19:45)
[2023-12-31] MEDS ORDERED: ONDANSETRON HCL 4 MG/2 ML VIAL IV PRN (19:45)
[2023-12-31] MEDS ORDERED: HYDROcodone-ACET 5/325MG TAB PO PRN (19:45)
[2023-12-31] MEDS ORDERED: hydrALAZINE HCL 20 MG/ML VL IV PRN (20:00)
[2023-12-31 20:10] VITALS: PULSE 83; RESP 13; O2SAT 95
[2023-12-31 20:25] LABS: Triglycerides 130 mg/dL (< 150)
[2023-12-31 20:26] LABS: LDL Cholesterol 137 mg/dL (< 100)
[2023-12-31 20:27] LABS: Cholesterol 202 mg/dL (< 200); HDL Cholesterol 47 mg/dL (40-59)
[2023-12-31] MEDS: TAMSULOSIN HYDROCHLORIDE 0.4 MG CAP PO ONE (21:37)
[2023-12-31] MEDS: SODIUM CHLORIDE 0.9% 1,000 ML IV SCH (21:37)
[2023-12-31] MEDS: InsuLIN REG 1unit/0.01ml Soln (100units/ml) SC SCH (22:00)
[2023-12-31] MEDS: ACCU-CHEK COMFORT CURVE STRIP VI SCH (22:24)
[2023-12-31] MEDS: GLIMEPIRIDE 2 MG TAB PO SCH (22:32)
[2024-01-01] VITALS (8 sets, daily range): BP systolic 110–130; BP diastolic 52–76; PULSE 64–80; RESP 14–20; TEMP 97.2–98.6; O2SAT 91–99
[2024-01-01] MEDS ORDERED: HYDR-4069 PO (01:32)
[2024-01-01 07:27] LABS: Chloride 108 mmol/L (98-107); Potassium 3.5 mmol/L (3.5-5.1); Sodium 140 mmol/L (136-145)
[2024-01-01 07:28] LABS: Anion Gap 7 (5-15); Calcium 9.5 mg/dL (8.7-10.4); Carbon Dioxide 25 mmol/L (20-30)
[2024-01-01 07:29] LABS: Basophils # (auto) 0 10 ^3/uL (0-0.2); Basophils % (auto) 0.4 % (0.0-2.0); Eosinophils # (auto) 0.2 10 ^3/uL (0-0.8); Eosinophils % (auto) 2.5 % (0.0-7.0); Hematocrit 37.5 % (36.0-46.0); Hemoglobin 12.4 g/dL (12.2-16.2); Lymphocytes # (auto) 2.2 10 ^3/uL (0.4-5.4); Lymphocytes % (auto) 24.3 % (10.0-50.0); Mean Corpuscular Hemoglobin 29.5 pg (28.0-32.0); Mean Corpuscular Hgb Conc. 33.1 g/dL (32.0-36.0); Mean Corpuscular Volume 89.2 fL (80.0-100.0); Monocytes # (auto) 0.6 10 ^3/uL (0-1.3); Monocytes % (auto) 6.5 % (0.0-12.0); Neutrophils % (auto) 66.3 % (37.0-80.0); Red Cell Distribution Width 14.5 % (11.8-14.3)
[2024-01-01 07:33] LABS: BUN/Creatinine Ratio 18.5 (10.0-20.0); Blood Urea Nitrogen 15 mg/dL (9-23); Glucose 125 mg/dL (74-106)
[2024-01-01] MEDS: cefTRIAXone 1GM/50ML D5W 50 ML IV SCH (09:23)
[2024-01-01] MEDS: ALLOPURINOL 100 MG TAB PO SCH (09:23)
[2024-01-01] MEDS: ENOXAPARIN SOD 40 MG/0.4 ML SYRINGE SC SCH (09:24)
[2024-01-01] MEDS: TAMSULOSIN HYDROCHLORIDE 0.4 MG CAP PO SCH (18:40)
[2024-01-02] VITALS (7 sets, daily range): BP systolic 113–130; BP diastolic 60–89; PULSE 64–77; RESP 15–76; TEMP 97.6–98.9; O2SAT 94–98
[2024-01-02 06:03] LABS: Basophils # (auto) 0.1 10 ^3/uL (0-0.2); Basophils % (auto) 1.3 % (0.0-2.0); Eosinophils # (auto) 0.3 10 ^3/uL (0-0.8); Eosinophils % (auto) 3.9 % (0.0-7.0); Hematocrit 34.4 % (36.0-46.0); Hemoglobin 11.6 g/dL (12.2-16.2); Lymphocytes # (auto) 2.1 10 ^3/uL (0.4-5.4); Lymphocytes % (auto) 26.1 % (10.0-50.0); Mean Corpuscular Hemoglobin 30.3 pg (28.0-32.0); Mean Corpuscular Hgb Conc. 33.6 g/dL (32.0-36.0); Mean Corpuscular Volume 90.1 fL (80.0-100.0); Monocytes # (auto) 0.5 10 ^3/uL (0-1.3); Monocytes % (auto) 6.3 % (0.0-12.0); Neutrophils % (auto) 62.4 % (37.0-80.0); Nucleated Red Blood Cells % 0.1 %; Red Blood Cells 3.82 10^6/uL (4.0-5.20); Red Cell Distribution Width 14.4 % (11.8-14.3); White Blood Cell 8.1 10^3/uL (4.4-10.8)
[2024-01-02 06:25] LABS: Alanine Aminotransferase 18 U/L (7-40); Albumin 3.8 g/dL (3.2-4.8); Alkaline Phosphatase 59 U/L (46-116); Anion Gap 7 (5-15); Aspartate Aminotransferase 14 U/L (13-40); BUN/Creatinine Ratio 20.8 (10.0-20.0); Blood Urea Nitrogen 15 mg/dL (9-23); Calcium 8.9 mg/dL (8.5-10.1); Carbon Dioxide 23 mmol/L (20-30); Chloride 110 mmol/L (98-107); Glucose 136 mg/dL (74-106); Potassium 3.5 mmol/L (3.5-5.1); Sodium 140 mmol/L (136-145)
[2024-01-02 06:26] LABS: Bilirubin, Total 0.7 mg/dL (0.2-1.0); Total Protein 6.2 g/dL (5.7-8.2)
[2024-01-02] MEDS: traMADol HCL 50 MG TAB PO PRN (09:05)
[2024-01-03 05:00] VITALS: BP_SYST 126; BP_SYST 128; BP_DIAS 77; BP_DIAS 78; PULSE 72; PULSE 75; RESP 17; RESP 19; TEMP 98.2; TEMP 98.3; O2SAT 93; O2SAT 98
[2024-01-03 06:03] LABS: Basophils # (auto) 0.1 10 ^3/uL (0-0.2); Basophils % (auto) 0.7 % (0.0-2.0); Eosinophils # (auto) 0.4 10 ^3/uL (0-0.8); Eosinophils % (auto) 4.6 % (0.0-7.0); Hemoglobin 11.5 g/dL (12.2-16.2); Lymphocytes # (auto) 2.4 10 ^3/uL (0.4-5.4); Lymphocytes % (auto) 29.6 % (10.0-50.0); Mean Corpuscular Hemoglobin 29.4 pg (28.0-32.0); Mean Corpuscular Hgb Conc. 32.8 g/dL (32.0-36.0); Mean Corpuscular Volume 89.6 fL (80.0-100.0); Monocytes # (auto) 0.5 10 ^3/uL (0-1.3); Monocytes % (auto) 6.5 % (0.0-12.0); Neutrophils # (auto) 4.7 10 ^3/uL (1.6-8.6); Neutrophils % (auto) 58.6 % (37.0-80.0); Red Cell Distribution Width 14.3 % (11.8-14.3)
[2024-01-03 06:21] LABS: Anion Gap 5 (5-15); Carbon Dioxide 25 mmol/L (20-30); Chloride 110 mmol/L (98-107); Potassium 3.8 mmol/L (3.5-5.1); Sodium 140 mmol/L (136-145)
[2024-01-03 06:27] LABS: Glucose 120 mg/dL (74-106)
[2024-01-03 06:36] LABS: BUN/Creatinine Ratio 19.1 (10.0-20.0); Blood Urea Nitrogen 13 mg/dL (9-23)
[2024-01-03 08:35] VITALS: BP 130/73; PULSE 76; RESP 18; TEMP 97.9; O2SAT 95
[2024-01-03 12:40] VITALS: BP 126/58; PULSE 66; RESP 21; TEMP 98.3; O2SAT 97
[2024-01-03 17:19] VITALS: BP 149/71; PULSE 76; RESP 21; TEMP 97.9; O2SAT 95
[2024-01-03] MEDS: guaiFENesin-DM 100/10mg/5ml SYR PO PRN (17:49)
[2024-01-03 20:14] VITALS: BP 146/72; PULSE 77; RESP 20; TEMP 98.6; O2SAT 96
[2024-01-04] VITALS (7 sets, daily range): BP systolic 114–152; BP diastolic 44–77; PULSE 64–103; RESP 16–20; TEMP 97–98.7; O2SAT 93–97
[2024-01-05] VITALS (7 sets, daily range): BP systolic 111–130; BP diastolic 52–75; PULSE 65–77; RESP 16–20; TEMP 97.9–99.3; O2SAT 95–98
[2024-01-05] MEDS: ACETAMINOPHEN 325 MG TAB PO PRN (02:45)
[2024-01-05] MEDS ORDERED: CEFT1PM IV (13:47)
== END 2024-01-05 17:35 | disposition home health service (06) | DRG 690 ==
LOC: ER 13:14 → OVERFLOW 19:46 → WEST WING 23:45
PROVIDERS: ADMIT Internal Medicine; ATTEND Internal Medicine
PROC: 05HD33Z Insertion of Infusion Device into Right Cephalic Vein, Percutaneous Approach (ICD-10-PCS; principal; 2024-01-03)
PROC: B54MZZA Ultrasonography of Right Upper Extremity Veins, Guidance (ICD-10-PCS; 2024-01-03)
DX: N30.01 Acute cystitis with hematuria (principal); N20.0 Calculus of kidney; E78.5 Hyperlipidemia, unspecified; M10.9 Gout, unspecified; F32.A Depression, unspecified; F41.9 Anxiety disorder, unspecified; E66.9 Obesity, unspecified; N18.9 Chronic kidney disease, unspecified; I12.9 Hypertensive chronic kidney disease with stage 1 through stage 4 chronic kidney disease, or unspecified chronic kidney disease; E11.22 Type 2 diabetes mellitus with diabetic chronic kidney disease; Z88.1 Allergy status to other antibiotic agents; Z88.3 Allergy status to other anti-infective agents; Z88.0 Allergy status to penicillin; Z68.37 Body mass index [BMI] 37.0-37.9, adult; Z82.49 Family history of ischemic heart disease and other diseases of the circulatory system; Z82.3 Family history of stroke; Z80.3 Family history of malignant neoplasm of breast; Z82.0 Family history of epilepsy and other diseases of the nervous system
CPT/HCPCS: 36415; 74176; 76775; 80048; 80053; 80061; 81001; 82962; 83036; 83605; 84443; 85025; 87040; 87086; 96365; G0378; J1815

== ENCOUNTER → 2024-03-09 | Outpatient (CLI) | payer MEDICARE ==
[~2024-03-09] MED LIST changes: -CEFD300C2 PO; +CEFT1PM IV; +HYDR-4069 PO
[2024-03-09 12:12] LABS: Urine Bacteria None Seen /hpf (None Seen); Urine Blood 1+ /uL (Negative); Urine Clarity Turbid (Clear); Urine Color Light-Yellow (Yellow); Urine Hyaline Cast FEW /lpf (0 - 2); Urine Mucus FEW (None Seen); Urine Protein, UAD TRACE (Negative); Urine Specific Gravity 1.021 (1.001-1.035); Urine Urobilinogen Normal (Negative); Urine WBC 12 /hpf (0 - 5)
== END | disposition home or self-care (01) ==
LOC: LAB 11:38
PROVIDERS: ATTEND Urology
DX: N39.0 Urinary tract infection, site not specified (principal)
CPT/HCPCS: 81001; 87086

== ENCOUNTER 2024-04-13 11:27 | Inpatient (IN) | payer MEDICARE, MEDICAID ==
[~2024-04-13] VITALS: Ht 162.6 cm; Wt 104.3 kg
[2024-04-13 13:19] LABS: Urine Bacteria FEW /hpf (None Seen); Urine Blood 1+ /uL (Negative); Urine Clarity Turbid (Clear); Urine Color Light-Yellow (Yellow); Urine Mucus FEW (None Seen); Urine Protein, UAD Negative (Negative); Urine Specific Gravity 1.018 (1.001-1.035); Urine Urobilinogen Normal (Negative); Urine WBC 4 /hpf (0 - 5)
[2024-04-13 15:54] LABS: Basophils # (auto) 0.1 10 ^3/uL (0-0.2); Basophils % (auto) 0.7 % (0.0-2.0); Eosinophils # (auto) 0.2 10 ^3/uL (0-0.8); Eosinophils % (auto) 2.5 % (0.0-7.0); Hemoglobin 14.3 g/dL (12.2-16.2); Lymphocytes # (auto) 2.3 10 ^3/uL (0.4-5.4); Lymphocytes % (auto) 24.6 % (10.0-50.0); Mean Corpuscular Hemoglobin 30.5 pg (28.0-32.0); Mean Corpuscular Hgb Conc. 34.1 g/dL (32.0-36.0); Mean Corpuscular Volume 89.6 fL (80.0-100.0); Monocytes # (auto) 0.5 10 ^3/uL (0-1.3); Neutrophils # (auto) 6.2 10 ^3/uL (1.6-8.6); Neutrophils % (auto) 67.2 % (37.0-80.0); Platelet Count (auto) 223 10^3/uL (140-450); Red Blood Cells 4.69 10^6/uL (4.0-5.20); White Blood Cell 9.3 10^3/uL (4.4-10.8)
[2024-04-13 16:19] LABS: Alanine Aminotransferase 24 U/L (7-40); Albumin 4.6 g/dL (3.2-4.8); Alkaline Phosphatase 64 U/L (46-116); Anion Gap 8 (5-15); Aspartate Aminotransferase 15 U/L (13-40); BUN/Creatinine Ratio 15.2 (10.0-20.0); Bilirubin, Total 1.2 mg/dL (0.2-1.0); Blood Urea Nitrogen 15 mg/dL (9-23); Calcium 10.1 mg/dL (8.7-10.4); Carbon Dioxide 23 mmol/L (20-30); Chloride 108 mmol/L (98-107); Glucose 172 mg/dL (74-106); Potassium 3.7 mmol/L (3.5-5.1); Sodium 139 mmol/L (136-145); Total Protein 7.5 g/dL (5.7-8.2)
[2024-04-13] MEDS: ONDANSETRON HCL 4 MG/2 ML VIAL IV ONE (19:11)
[2024-04-13] MEDS: SODIUM CHLORIDE 0.9% 1,000 ML IV ONE (19:11)
[2024-04-13] MEDS: cefTRIAXone 1GM/50ML D5W 50 ML IV ONE (19:11)
[2024-04-13] MEDS: KETOROLAC TROMETH 30 MG/ML 1ML VIAL IV ONE (19:12)
[2024-04-13] MEDS ORDERED: HYDROmorphone HCL 2 MG/ML VL/or syr IV PRN (21:15)
[2024-04-13] MEDS ORDERED: ACETAMINOPHEN 325 MG TAB PO PRN (21:15)
[2024-04-13] MEDS: LACTATED RINGER'S 1,000 ML IV ONE (21:20)
[2024-04-13 22:12] VITALS: PULSE 61; RESP 18; O2SAT 96
[2024-04-13] MEDS: SODIUM CHLOR 0.9% PF (SALINE LOCK) 10ML VIAL/SYR IV SCH (23:00)
[2024-04-14] VITALS (7 sets, daily range): BP systolic 106–148; BP diastolic 58–95; PULSE 64–107; RESP 17–20; TEMP 98–98.8; O2SAT 95–99
[2024-04-14] MEDS: ONDANSETRON HCL 4 MG/2 ML VIAL IV PRN (02:58)
[2024-04-14] MEDS: HYDROcodone-ACET 5/325MG TAB PO PRN (02:58)
[2024-04-14 05:01] LABS: Basophils # (auto) 0.1 10 ^3/uL (0-0.2); Basophils % (auto) 0.7 % (0.0-2.0); Eosinophils # (auto) 0.3 10 ^3/uL (0-0.8); Eosinophils % (auto) 3.5 % (0.0-7.0); Hemoglobin 12.8 g/dL (12.2-16.2); Lymphocytes # (auto) 1.7 10 ^3/uL (0.4-5.4); Lymphocytes % (auto) 22.9 % (10.0-50.0); Mean Corpuscular Hemoglobin 30.2 pg (28.0-32.0); Mean Corpuscular Hgb Conc. 33.8 g/dL (32.0-36.0); Mean Corpuscular Volume 89.3 fL (80.0-100.0); Monocytes # (auto) 0.5 10 ^3/uL (0-1.3); Monocytes % (auto) 7.1 % (0.0-12.0); Neutrophils % (auto) 65.8 % (37.0-80.0); Platelet Count (auto) 183 10^3/uL (140-450); Red Blood Cells 4.26 10^6/uL (4.0-5.20); Red Cell Distribution Width 13.7 % (11.8-14.3); White Blood Cell 7.5 10^3/uL (4.4-10.8)
[2024-04-14 05:14] LABS: Alanine Aminotransferase 17 U/L (7-40); Alkaline Phosphatase 53 U/L (46-116); Anion Gap 7 (5-15); Aspartate Aminotransferase 13 U/L (13-40); BUN/Creatinine Ratio 19.1 (10.0-20.0); Blood Urea Nitrogen 18 mg/dL (9-23); Calcium 9.1 mg/dL (8.7-10.4); Carbon Dioxide 22 mmol/L (20-30); Chloride 112 mmol/L (98-107); Glucose 117 mg/dL (74-106); Potassium 3.7 mmol/L (3.5-5.1); Sodium 141 mmol/L (136-145)
[2024-04-14 05:15] LABS: Bilirubin, Total 0.9 mg/dL (0.2-1.0); Total Protein 6.4 g/dL (5.7-8.2)
[2024-04-14] MEDS: cefTRIAXone 1GM/50ML D5W 50 ML IV SCH (10:46)
[2024-04-14] MEDS: ENOXAPARIN SOD 40 MG/0.4 ML SYRINGE SC SCH (10:46)
[2024-04-14] MEDS ORDERED: DEXTROSE (50%) 50ML SYRG IV PRN (15:30)
[2024-04-14] MEDS: InsuLIN REG 1unit/0.01ml Soln (100units/ml) SC SCH ×2 (18:00→22:00)
[2024-04-14] MEDS: ACCU-CHEK COMFORT CURVE STRIP VI SCH (18:00)
[2024-04-14] MEDS: FLUVOXAMINE MALEATE 100 MG PO SCH (22:12)
[2024-04-15] VITALS (7 sets, daily range): BP systolic 105–147; BP diastolic 48–81; PULSE 58–70; RESP 13–18; TEMP 97.8–98.1; O2SAT 95–96
[2024-04-15 07:04] LABS: Basophils # (auto) 0 10 ^3/uL (0-0.2); Basophils % (auto) 0.7 % (0.0-2.0); Eosinophils # (auto) 0.3 10 ^3/uL (0-0.8); Eosinophils % (auto) 4.3 % (0.0-7.0); Hematocrit 36.7 % (36.0-46.0); Hemoglobin 12.4 g/dL (12.2-16.2); Lymphocytes # (auto) 1.6 10 ^3/uL (0.4-5.4); Lymphocytes % (auto) 25.1 % (10.0-50.0); Mean Corpuscular Hemoglobin 30.3 pg (28.0-32.0); Mean Corpuscular Hgb Conc. 33.8 g/dL (32.0-36.0); Mean Corpuscular Volume 89.6 fL (80.0-100.0); Monocytes # (auto) 0.4 10 ^3/uL (0-1.3); Monocytes % (auto) 6.9 % (0.0-12.0); Platelet Count (auto) 169 10^3/uL (140-450); Red Cell Distribution Width 13.6 % (11.8-14.3); White Blood Cell 6.3 10^3/uL (4.4-10.8)
[2024-04-15 07:23] LABS: Alanine Aminotransferase 20 U/L (7-40); Alkaline Phosphatase 52 U/L (46-116); Anion Gap 6 (5-15); Aspartate Aminotransferase 11 U/L (13-40); Bilirubin, Total 0.9 mg/dL (0.2-1.0); Blood Urea Nitrogen 13 mg/dL (9-23); Carbon Dioxide 24 mmol/L (20-30); Chloride 110 mmol/L (98-107); Glucose 126 mg/dL (74-106); Potassium 3.7 mmol/L (3.5-5.1); Sodium 140 mmol/L (136-145)
[2024-04-15 07:24] LABS: Total Protein 6.1 g/dL (5.7-8.2)
[2024-04-15 07:40] LABS: Albumin 3.9 g/dL (3.2-4.8)
[2024-04-15] MEDS: ALLOPURINOL 100 MG TAB PO SCH (09:38)
[2024-04-15] MEDS ORDERED: NITR50CA24 PO (09:44)
[2024-04-15] MEDS ORDERED: TRAM-626 PO (10:02)
== END 2024-04-15 13:27 | disposition home health service (06) | DRG 690 ==
LOC: ER 11:27 → OVERFLOW 21:08 → CENTRAL 04-14 08:44
PROVIDERS: ADMIT Internal Medicine; ATTEND Family Medicine
DX: N13.6 Pyonephrosis (principal); N18.9 Chronic kidney disease, unspecified; F32.A Depression, unspecified; E11.22 Type 2 diabetes mellitus with diabetic chronic kidney disease; M10.9 Gout, unspecified; F41.9 Anxiety disorder, unspecified; E78.5 Hyperlipidemia, unspecified; I12.9 Hypertensive chronic kidney disease with stage 1 through stage 4 chronic kidney disease, or unspecified chronic kidney disease; I25.10 Atherosclerotic heart disease of native coronary artery without angina pectoris; Z88.1 Allergy status to other antibiotic agents; Z88.3 Allergy status to other anti-infective agents; Z88.0 Allergy status to penicillin; Z80.3 Family history of malignant neoplasm of breast; Z82.0 Family history of epilepsy and other diseases of the nervous system; Z82.3 Family history of stroke; Z82.49 Family history of ischemic heart disease and other diseases of the circulatory system; Z79.4 Long term (current) use of insulin; Z79.899 Other long term (current) drug therapy
CPT/HCPCS: 36415; 74176; 80053; 81001; 82962; 83605; 85025; 87040; 87086; G0378; J1815; J1885; J2405

== ENCOUNTER 2024-04-28 07:53 | Day surgery (SDC) | payer MEDICARE, MEDICAID ==
[2024-04-26 15:05] LABS: Basophils # (auto) 0.1 10 ^3/uL (0-0.2); Basophils % (auto) 0.8 % (0.0-2.0); Eosinophils # (auto) 0.2 10 ^3/uL (0-0.8); Eosinophils % (auto) 1.8 % (0.0-7.0); Hematocrit 41.6 % (36.0-46.0); Hemoglobin 14.1 g/dL (12.2-16.2); Lymphocytes # (auto) 2.9 10 ^3/uL (0.4-5.4); Lymphocytes % (auto) 28.4 % (10.0-50.0); Mean Corpuscular Hemoglobin 30.1 pg (28.0-32.0); Mean Corpuscular Hgb Conc. 33.8 g/dL (32.0-36.0); Mean Corpuscular Volume 89.1 fL (80.0-100.0); Monocytes # (auto) 0.6 10 ^3/uL (0-1.3); Monocytes % (auto) 6.1 % (0.0-12.0); Neutrophils # (auto) 6.4 10 ^3/uL (1.6-8.6); Neutrophils % (auto) 62.9 % (37.0-80.0); Platelet Count (auto) 244 10^3/uL (140-450); Red Blood Cells 4.67 10^6/uL (4.0-5.20); Red Cell Distribution Width 13.9 % (11.8-14.3); White Blood Cell 10.2 10^3/uL (4.4-10.8)
[2024-04-26 15:23] LABS: INR 0.97 (0.9-1.15); Partial Thromboplastin Time 26.8 SEC (24.5-34.5); Prothrombin Time 10.3 sec (9.3-11.8)
[2024-04-26 15:25] LABS: Urine Amorphous Crystal FEW /hpf (None Seen); Urine Bacteria FEW /hpf (None Seen); Urine Blood 3+ /uL (Negative); Urine Clarity Turbid (Clear); Urine Color Light-Yellow (Yellow); Urine Protein, UAD TRACE (Negative); Urine Specific Gravity 1.022 (1.001-1.035); Urine Urobilinogen Normal (Negative); Urine WBC 6 /hpf (0 - 5)
[2024-04-26 15:55] LABS: Alanine Aminotransferase 15 U/L (7-40); Albumin 4.7 g/dL (3.2-4.8); Alkaline Phosphatase 70 U/L (46-116); Anion Gap 9 (5-15); Aspartate Aminotransferase 11 U/L (13-40); BUN/Creatinine Ratio 16.4 (10.0-20.0); Blood Urea Nitrogen 18 mg/dL (9-23); Carbon Dioxide 24 mmol/L (20-30); Chloride 107 mmol/L (98-107); Glucose 114 mg/dL (74-106); Potassium 3.9 mmol/L (3.5-5.1); Sodium 140 mmol/L (136-145)
[2024-04-26 15:56] LABS: Bilirubin, Total 0.8 mg/dL (0.2-1.0); Total Protein 7.5 g/dL (5.7-8.2)
[~2024-04-28] VITALS: Ht 162.6 cm; Wt 95.3 kg
[~2024-04-28 07:53] MED LIST changes: -CEFT1PM IV; -PROM25TA10 OR; -TRAM50TA2 PO
[2024-04-28] MEDS ORDERED: cefTRIAXone SOD 1,000 MG VL ONE (10:39)
[2024-04-28] MEDS ORDERED: LIDOCAINE 2%HCL (LOCAL ANESTH.) INJ 10ml MDV ONE (11:38)
[2024-04-28] MEDS ORDERED: PROPOFOL 10 MG/ML 20 ML IV ONE (11:40)
[2024-04-28] MEDS ORDERED: GLYCOPYRROLATE 0.2 MG/ML 1ML VIAL ONE (11:40)
[2024-04-28] MEDS ORDERED: DexAMETHasone SOD PHOS 10MG/1ML VIAL INJ ONE (11:40)
[2024-04-28] MEDS ORDERED: ONDANSETRON HCL 4 MG/2 ML VIAL ONE (11:40)
[2024-04-28] MEDS: ONDANSETRON HCL 4 MG/2 ML VIAL ONE (12:11)
[2024-04-28] MEDS ORDERED: ONDANSETRON HCL 4 MG/2 ML VIAL IM ONE (12:15)
[2024-04-28] MEDS ORDERED: fentaNYL CITRATE 100 MCG/2 ML VL ONE (12:18)
[2024-04-28] MEDS ORDERED: ePHEDrine SULFATE 50 MG/ML AMP ONE (12:35)
[2024-04-28 12:56] VITALS: RESP 11; TEMP 97.8; O2SAT 94
[2024-04-28] MEDS ORDERED: METOCLOPRAMIDE HCL 5MG/ml INJ 2ml VIAL ONE (13:15)
[2024-04-28 13:41] VITALS: BP 139/61; PULSE 90; RESP 12; O2SAT 97
[2024-05-02] MEDS: METOCLOPRAMIDE HCL 5MG/ml INJ 2ml VIAL IV ONE (13:16)
== END 2024-04-28 13:56 | disposition home or self-care (01) ==
LOC: SUR 07:53
PROVIDERS: ATTEND Urology
DX: N20.0 Calculus of kidney (principal); I12.9 Hypertensive chronic kidney disease with stage 1 through stage 4 chronic kidney disease, or unspecified chronic kidney disease; E11.22 Type 2 diabetes mellitus with diabetic chronic kidney disease; N18.1 Chronic kidney disease, stage 1; G47.33 Obstructive sleep apnea (adult) (pediatric); F41.8 Other specified anxiety disorders; E66.01 Morbid (severe) obesity due to excess calories; Z68.36 Body mass index [BMI] 36.0-36.9, adult; Z79.899 Other long term (current) drug therapy; Z98.890 Other specified postprocedural states; Z79.4 Long term (current) use of insulin; Z88.0 Allergy status to penicillin; Z88.8 Allergy status to other drugs, medicaments and biological substances
CPT/HCPCS: 36415; 50590; 80053; 81001; 82962; 85025; 85610; 85730; 87086; C1769; J0696; J1100; J2001; J2405; J2704; J2765; J3010; J7030

== ENCOUNTER 2024-05-07 11:50 | Inpatient (IN) | payer MEDICARE, MEDICAID ==
[~2024-05-07] VITALS: Ht 162.6 cm; Wt 97.5 kg
[2024-05-07] MEDS: SODIUM CHLORIDE 0.9% 1,000 ML IV ONE ×2 (12:37→12:56)
[2024-05-07] MEDS: TAMSULOSIN HYDROCHLORIDE 0.4 MG CAP PO ONE (12:48)
[2024-05-07 13:48] LABS: Urine Bacteria None Seen /hpf (None Seen)
[2024-05-07 13:48] LABS: Basophils # (auto) 0 10 ^3/uL (0-0.2); Basophils % (auto) 0.6 % (0.0-2.0); Eosinophils # (auto) 0.2 10 ^3/uL (0-0.8); Eosinophils % (auto) 1.8 % (0.0-7.0); Hematocrit 40.8 % (36.0-46.0); Lymphocytes # (auto) 1.8 10 ^3/uL (0.4-5.4); Lymphocytes % (auto) 22.1 % (10.0-50.0); Mean Corpuscular Hemoglobin 30.5 pg (28.0-32.0); Mean Corpuscular Hgb Conc. 34.3 g/dL (32.0-36.0); Monocytes # (auto) 0.4 10 ^3/uL (0-1.3); Monocytes % (auto) 5.4 % (0.0-12.0); Neutrophils # (auto) 5.8 10 ^3/uL (1.6-8.6); Neutrophils % (auto) 70.1 % (37.0-80.0); Platelet Count (auto) 218 10^3/uL (140-450); Red Blood Cells 4.59 10^6/uL (4.0-5.20); Red Cell Distribution Width 13.8 % (11.8-14.3); White Blood Cell 8.3 10^3/uL (4.4-10.8)
[2024-05-07 13:51] LABS: Chloride 107 mmol/L (98-107); Sodium 141 mmol/L (136-145)
[2024-05-07 13:52] LABS: Anion Gap 10 (5-15); Calcium 9.8 mg/dL (8.7-10.4); Carbon Dioxide 24 mmol/L (20-31)
[2024-05-07 13:57] LABS: BUN/Creatinine Ratio 23.3 (10.0-20.0); Blood Urea Nitrogen 21 mg/dL (9-23); Glucose 166 mg/dL (74-106)
[2024-05-07 14:03] LABS: Urine Blood 3+ /uL (Negative); Urine Clarity Turbid (Clear); Urine Color Yellow (Yellow); Urine Protein, UAD TRACE (Negative); Urine Specific Gravity 1.022 (1.001-1.035); Urine Urobilinogen Normal (Negative); Urine WBC 5 /hpf (0 - 5)
[2024-05-07] MEDS: INSULIN LISPRO (HUMAN) 100 UNITS/ML ML SC ONE (20:51)
[2024-05-07] MEDS: ACCU-CHEK COMFORT CURVE STRIP VI ONE (20:52)
[2024-05-07] MEDS: InsuLIN REG 1unit/0.01ml Soln (100units/ml) SC ONE (20:52)
[2024-05-07] MEDS: DEXTROSE (50%) 50ML SYRG IV ONE (20:56)
[2024-05-07] MEDS: KETOROLAC TROMETH 30 MG/ML 1ML VIAL IV ONE (20:57)
[2024-05-07] MEDS: cefTRIAXone 1GM/50ML D5W 50 ML IV ONE (20:58)
[2024-05-07] MEDS ORDERED: DEXTROSE (50%) 50ML SYRG IV PRN (21:00)
[2024-05-07] MEDS ORDERED: ACETAMINOPHEN 325 MG TAB PO PRN (21:45)
[2024-05-07] MEDS ORDERED: ONDANSETRON HCL 4 MG/2 ML VIAL IV PRN (21:45)
[2024-05-07] MEDS ORDERED: DOCUSATE SOD 100 MG CAP PO PRN (21:45)
[2024-05-07] MEDS ORDERED: HYDROcodone-ACET 5/325MG TAB PO PRN (21:45)
[2024-05-07] MEDS ORDERED: MORPHINE SULFATE INJ 2 MG/ml SYRG IV PRN ×2 (21:45→22:15)
[2024-05-07] MEDS: ACCU-CHEK COMFORT CURVE STRIP VI SCH (21:47)
[2024-05-07] MEDS: InsuLIN REG 1unit/0.01ml Soln (100units/ml) SC SCH (21:56)
[2024-05-07] MEDS: SODIUM CHLOR 0.9% PF (SALINE LOCK) 10ML VIAL/SYR IV SCH (22:04)
[2024-05-07] MEDS ORDERED: NITROGLYCERIN 0.4 MG SL TAB SL PRN (22:15)
[2024-05-07 23:03] VITALS: PULSE 67; RESP 16; O2SAT 97
[2024-05-08 01:00] VITALS: BP 125/71; PULSE 68; RESP 18; TEMP 97.6; O2SAT 92
[2024-05-08 05:00] VITALS: BP 110/68; PULSE 83; RESP 17; TEMP 97.7; O2SAT 95
[2024-05-08 07:22] LABS: Basophils # (auto) 0.1 10 ^3/uL (0-0.2); Basophils % (auto) 0.7 % (0.0-2.0); Eosinophils # (auto) 0.2 10 ^3/uL (0-0.8); Hematocrit 41.1 % (36.0-46.0); Lymphocytes # (auto) 1.9 10 ^3/uL (0.4-5.4); Lymphocytes % (auto) 23.1 % (10.0-50.0); Mean Corpuscular Hemoglobin 30.6 pg (28.0-32.0); Mean Corpuscular Volume 89.8 fL (80.0-100.0); Monocytes # (auto) 0.5 10 ^3/uL (0-1.3); Monocytes % (auto) 6.2 % (0.0-12.0); Neutrophils # (auto) 5.7 10 ^3/uL (1.6-8.6); Platelet Count (auto) 206 10^3/uL (140-450); Red Blood Cells 4.58 10^6/uL (4.0-5.20); White Blood Cell 8.3 10^3/uL (4.4-10.8)
[2024-05-08 07:51] LABS: Alanine Aminotransferase 13 U/L (7-40); Albumin 4.4 g/dL (3.2-4.8); Alkaline Phosphatase 68 U/L (46-116); Anion Gap 9 (5-15); Aspartate Aminotransferase 11 U/L (13-40); BUN/Creatinine Ratio 20.7 (10.0-20.0); Bilirubin, Total 1.2 mg/dL (0.2-1.0); Blood Urea Nitrogen 19 mg/dL (9-23); Calcium 9.7 mg/dL (8.7-10.4); Carbon Dioxide 24 mmol/L (20-31); Chloride 107 mmol/L (98-107); Glucose 140 mg/dL (74-106); Potassium 3.8 mmol/L (3.5-5.1); Sodium 140 mmol/L (136-145); Total Protein 7.1 g/dL (5.7-8.2)
[2024-05-08 09:00] VITALS: BP 129/61; PULSE 74; RESP 16; TEMP 97.7; O2SAT 97
[2024-05-08 13:00] VITALS: BP 128/66; PULSE 78; RESP 17; TEMP 98.8; O2SAT 96
[2024-05-08 17:00] VITALS: BP 106/57; PULSE 78; RESP 17; TEMP 98.5; O2SAT 96
[2024-05-08 21:00] VITALS: BP 110/51; PULSE 67; RESP 19; TEMP 97.6; O2SAT 95
[2024-05-09 01:00] VITALS: BP 101/44; PULSE 67; RESP 19; TEMP 98; O2SAT 95
[2024-05-09 05:00] VITALS: BP 114/51; PULSE 78; RESP 19; TEMP 97.5; O2SAT 94
[2024-05-09 07:03] LABS: Basophils # (auto) 0.1 10 ^3/uL (0-0.2); Basophils % (auto) 0.9 % (0.0-2.0); Eosinophils # (auto) 0.2 10 ^3/uL (0-0.8); Eosinophils % (auto) 3.3 % (0.0-7.0); Hemoglobin 12.6 g/dL (12.2-16.2); Lymphocytes # (auto) 2.2 10 ^3/uL (0.4-5.4); Lymphocytes % (auto) 32.1 % (10.0-50.0); Mean Corpuscular Hemoglobin 30.5 pg (28.0-32.0); Mean Corpuscular Hgb Conc. 34.2 g/dL (32.0-36.0); Mean Corpuscular Volume 89.2 fL (80.0-100.0); Monocytes # (auto) 0.5 10 ^3/uL (0-1.3); Monocytes % (auto) 6.8 % (0.0-12.0); Neutrophils # (auto) 3.9 10 ^3/uL (1.6-8.6); Neutrophils % (auto) 56.9 % (37.0-80.0); Platelet Count (auto) 181 10^3/uL (140-450); Red Blood Cells 4.15 10^6/uL (4.0-5.20); Red Cell Distribution Width 13.9 % (11.8-14.3); White Blood Cell 6.9 10^3/uL (4.4-10.8)
[2024-05-09 07:29] LABS: Chloride 108 mmol/L (98-107); Potassium 3.5 mmol/L (3.5-5.1); Sodium 140 mmol/L (136-145)
[2024-05-09 07:30] LABS: Anion Gap 8 (5-15); Carbon Dioxide 24 mmol/L (20-31)
[2024-05-09 07:35] LABS: BUN/Creatinine Ratio 16.1 (10.0-20.0); Blood Urea Nitrogen 14 mg/dL (9-23); Glucose 148 mg/dL (74-106)
[2024-05-09 08:00] VITALS: RESP 16
[2024-05-09 09:00] VITALS: BP_SYST 121; BP_SYST 165; BP_DIAS 52; BP_DIAS 61; PULSE 59; PULSE 69; RESP 17; TEMP 97.4; TEMP 97.7; O2SAT 95; O2SAT 96
[2024-05-09 13:00] VITALS: BP 127/77; PULSE 69; RESP 17; TEMP 98.1; O2SAT 97
[2024-05-09 17:00] VITALS: BP 118/60; PULSE 16; TEMP 97.6; O2SAT 97
== END 2024-05-09 18:50 | disposition home or self-care (01) | DRG 694 ==
LOC: ER 11:50 → OVERFLOW 22:03 → WEST WING 22:03
PROVIDERS: ADMIT Internal Medicine; ATTEND Emergency Medicine
DX: N20.0 Calculus of kidney (principal); E11.65 Type 2 diabetes mellitus with hyperglycemia; F41.9 Anxiety disorder, unspecified; F32.A Depression, unspecified; M10.9 Gout, unspecified; E78.5 Hyperlipidemia, unspecified; E66.9 Obesity, unspecified; I10 Essential (primary) hypertension; Z87.440 Personal history of urinary (tract) infections; Z79.899 Other long term (current) drug therapy; Z88.1 Allergy status to other antibiotic agents; Z88.0 Allergy status to penicillin; Z88.2 Allergy status to sulfonamides; Z88.8 Allergy status to other drugs, medicaments and biological substances; Z79.1 Long term (current) use of non-steroidal anti-inflammatories (NSAID); Z87.442 Personal history of urinary calculi; Z88.3 Allergy status to other anti-infective agents; Z82.0 Family history of epilepsy and other diseases of the nervous system; Z82.49 Family history of ischemic heart disease and other diseases of the circulatory system; Z82.3 Family history of stroke; Z80.3 Family history of malignant neoplasm of breast; Z68.35 Body mass index [BMI] 35.0-35.9, adult
CPT/HCPCS: 36415; 74176; 76705; 80048; 80053; 81001; 82962; 84484; 85025; 96361; 96365; 96375; G0378; J1815; J1885

== ENCOUNTER 2024-06-23 09:01 | Day surgery (SDC) | payer MEDICARE, MEDICAID ==
[2024-06-17 13:53] LABS: Basophils # (auto) 0.1 10 ^3/uL (0-0.2); Basophils % (auto) 0.7 % (0.0-2.0); Eosinophils # (auto) 0.3 10 ^3/uL (0-0.8); Eosinophils % (auto) 2.7 % (0.0-7.0); Hematocrit 41.2 % (36.0-46.0); Lymphocytes % (auto) 27.3 % (10.0-50.0); Mean Corpuscular Hemoglobin 30.3 pg (28.0-32.0); Mean Corpuscular Hgb Conc. 34.1 g/dL (32.0-36.0); Monocytes # (auto) 0.6 10 ^3/uL (0-1.3); Monocytes % (auto) 5.6 % (0.0-12.0); Neutrophils # (auto) 6.9 10 ^3/uL (1.6-8.6); Neutrophils % (auto) 63.7 % (37.0-80.0); Platelet Count (auto) 246 10^3/uL (140-450); Red Blood Cells 4.64 10^6/uL (4.0-5.20); Red Cell Distribution Width 14.3 % (11.8-14.3); White Blood Cell 10.8 10^3/uL (4.4-10.8)
[2024-06-17 14:05] LABS: Urine Bacteria FEW /hpf (None Seen); Urine Blood 1+ /uL (Negative); Urine Clarity Clear (Clear); Urine Color Light-Yellow (Yellow); Urine Protein, UAD Negative (Negative); Urine Specific Gravity 1.019 (1.001-1.035); Urine Urobilinogen Normal (Negative); Urine WBC 3 /hpf (0 - 5)
[2024-06-17 14:16] LABS: Alanine Aminotransferase 15 U/L (7-40); Albumin 4.7 g/dL (3.2-4.8); Alkaline Phosphatase 80 U/L (46-116); Anion Gap 6 (5-15); Aspartate Aminotransferase 10 U/L (13-40); BUN/Creatinine Ratio 20.4 (10.0-20.0); Blood Urea Nitrogen 19 mg/dL (9-23); Calcium 10.3 mg/dL (8.7-10.4); Carbon Dioxide 27 mmol/L (20-31); Chloride 108 mmol/L (98-107); Glucose 116 mg/dL (74-106); Potassium 3.8 mmol/L (3.5-5.1); Sodium 141 mmol/L (136-145)
[2024-06-17 14:17] LABS: Bilirubin, Total 1.1 mg/dL (0.2-1.0); Total Protein 7.7 g/dL (5.7-8.2)
[2024-06-17 14:19] LABS: INR 0.99 (0.9-1.15); Partial Thromboplastin Time 26.4 SEC (24.5-34.5); Prothrombin Time 10.5 sec (9.3-11.8)
[~2024-06-23] VITALS: Ht 162.6 cm; Wt 94.3 kg
[2024-06-23] MEDS ORDERED: ceFAZolin 2 GM/D5W100ml 100 ML IV ONE (09:28)
[2024-06-23] MEDS ORDERED: cefTRIAXone SOD 1,000 MG VL ONE (09:51)
[2024-06-23] MEDS ORDERED: SUCCINYLCHOLINE CHLORIDE 20 MG/ML 10ML VIAL IV ONE (10:33)
[2024-06-23] MEDS ORDERED: PROPOFOL 10 MG/ML 20 ML IV ONE (10:34)
[2024-06-23] MEDS ORDERED: fentaNYL CITRATE 100 MCG/2 ML VL ONE ×2 (10:35→11:33)
[2024-06-23] MEDS ORDERED: cefTRIAXone 1GM/50ML D5W 50 ML IV ONE ×2 (11:00)
[2024-06-23] MEDS ORDERED: ROCURONIUM 10MG/ML 10ML VIAL IV ONE (11:08)
[2024-06-23] MEDS ORDERED: ePHEDrine SULFATE 50 MG/ML AMP ONE (11:09)
[2024-06-23 12:16] VITALS: TEMP 97; O2SAT 98
[2024-06-23] MEDS ORDERED: ONDANSETRON HCL 4 MG/2 ML VIAL ONE (12:28)
[2024-06-23] MEDS ORDERED: METOCLOPRAMIDE HCL 5MG/ml INJ 2ml VIAL IV ONE (12:30)
[2024-06-23] MEDS ORDERED: HYDROmorphone HCL 2 MG/ML VL/or syr IV PRN (12:30)
[2024-06-23] MEDS ORDERED: ACETAMINOPHEN IV 1000 MG/100ML (10MG/ML) IV PRN (12:30)
[2024-06-23] MEDS: ONDANSETRON HCL 4 MG/2 ML VIAL IV ONE (12:31)
--- NOTE | 2024-06-23 12:39 | DVHDS2 ---
New Physician D'charge PN Admitting Diagnosis Admitting Diagnosis Right nephrolithiasis Discharge Diagnosis Same Operations or Procedures Right pyeloscopy with laser lithotripsy with CVAC system Cystoscopy with right ureteral stent placement Reason(s) For Hospitalization Surgery Treatment Plan Discharge Condition of Discharge Good Disposition Home Discharge Instructions Diet: Regular Activity: Light activity Activity comment: Romero catheter management Medications: Resume home meds Follow Up Care Follow Up/Referral: Catheter removal on 06/24/2024 Discharge Statement: "Patient was advised to return to the ER or call 911 if any headaches, dizziness, shortness of breath, chest pain, abdominal pain, bleeding, fevers, or worsening of medical condition. Patient was counseled about treatment plan, medications, possible side effects, patientverbalized understanding. All questions were answered to the best of my ability. This discharge took greater then 30 minutes in planning, reviewing documentation, counseling the patient, and discussing with other team members." TANVI PERDOMO MD Jun 23, 2024 12:39
--- NOTE | 2024-06-23 12:46 | POSTOP ---
Post-Operative Note Post-Operative Note Preop Diagnosis Right nephrolithiasis Postop Diagnosis: Same Operation performed Right pyeloscopy with laser lithotripsy with CVAC system Cystoscopy with right ureteral stent placement Anesthesia: General Anesthesiologist: Dr. Chauhan Surgeon Tanvi Perdomo Implant Right ureteral stent placement Complications & Mgmt Two large renal lithiasis, one in the upper pole and one in the lower pole could not be treated fully with laser because of the large stone burden. we will obtain a CT scan postoperatively to re-evaluate the stone status. Patient will be placed on alkalinization therapy with potassium citrate. In approximately 4- 6 weeks, the CT scan will be repeated to evaluate the resolution of the stones. It is probable that she will need a PCNL for the right side stones Date 06/23/24 Time 12:45 TANVI PERDOMO MD Jun 23, 2024 12:46
--- NOTE | 2024-06-23 12:52 | DVH ---
C-ARM FLUOROSCOPY: PROCEDURE: right ureteroscopic FLUOROSCOPY TIME: 23.4 seconds
--- NOTE | 2024-06-23 12:52 | DVH ---
C-ARM FLUOROSCOPY: PROCEDURE: right ureteroscopic FLUOROSCOPY TIME: 23.4 seconds
[2024-06-23] MEDS: MEPERIDINE HCL (25 MG/ML) 1ML VIAL IV PRN (13:11)
--- NOTE | 2024-06-23 13:19 | DVH ---
CT CHEST, ABDOMEN AND PELVIS WITHOUT CONTRAST CLINICAL HISTORY: Status of the kidney stones TECHNIQUE: Multiple contiguous axial images of the abdomen and pelvis without intravenous contrast. The images were reformatted degenerate coronal and sagittal reconstructions. All CT scans at this medical facility are performed using dose modulation techniques as appropriate t o a performed exam including the following:Automated exposure control was utilized; adjustment of the MA and/or KV according to patient size; and use of iterative reconstruction technique. Radiation Dose Information: CT Dose: CTDI volume is 21.13 mGy. Dose-length product is 1385.71 mGy*cm Comparison: 05/09/2024 FINDINGS: Evaluation of the abdomen and pelvis is limited without intravenous contrast. There has been interval placement of right ureteral stent with the proximal loop in the right renal p bello in the distal loop in the bladder. Again seen are multiple right renal calculi, the largest is a cluster in the right upper pole measuring 1.2 cm. There has been some interval decrease in previous ly seen right renal pelvis calculi which likely have passed. There are stable small nonobstructive le ft renal calculi. The liver, gallbladder, pancreas, kidneys, adrenal glands, and spleen appear within normal limits. There is no gross evidence of abdominal lymphadenopathy. There is no free fluid or free air. The small and large bowel loops demonstrate normal caliber. There are scattered diverticula in the c olon without evidence of acute diverticulitis. The abdominal aorta and IVC appear within normal limits. Bladder is decompressed with major catheter. There is no evidence of bladder calculus. The uterus layne ssly appears within normal limits. There is no evidence of a pelvic mass or lymphadenopathy. There is no free fluid collection. There is mild scarring versus atelectasis in the right posterior lung base. The left lung base is neha ar. There is no acute osseous abnormality. There is again advanced right hip joint osteoarthritis with delcid bluxation of the right femoral head. There are multilevel degenerative changes of the lumbar spine. There is a stable appearing subcutaneous lipoma in the right posterior back with dystrophic calcifica tion. IMPRESSION: 1. Interval placement of right ureteral stents with the proximal loop in the right renal pelvis in th e distal loop in the bladder. 2. Again seen are multiple right renal calculi, the largest is a cluster in the right upper pole isamar uring 1.2 cm. There has been some decrease in previously seen right renal pelvis calculi which likely have passed. 3. Stable small nonobstructive left renal calculi. 4. Stable large right posterior back wall lipoma with dystrophic calcifications. 5. Advanced right hip joint osteoarthritis with subluxation of the right humeral head. HS:Y
[2024-06-23 14:00] VITALS: BP 148/78; PULSE 88; RESP 12; O2SAT 98
== END 2024-06-23 14:24 | disposition home or self-care (01) ==
LOC: SUR 09:01
PROVIDERS: ATTEND Urology
DX: N20.0 Calculus of kidney (principal); I10 Essential (primary) hypertension; E11.9 Type 2 diabetes mellitus without complications; F41.8 Other specified anxiety disorders; G47.30 Sleep apnea, unspecified; M10.9 Gout, unspecified; E66.9 Obesity, unspecified; Z68.35 Body mass index [BMI] 35.0-35.9, adult; Z79.84 Long term (current) use of oral hypoglycemic drugs; Z79.899 Other long term (current) drug therapy; Z98.890 Other specified postprocedural states; Z88.1 Allergy status to other antibiotic agents; Z88.2 Allergy status to sulfonamides; Z88.8 Allergy status to other drugs, medicaments and biological substances; Z80.3 Family history of malignant neoplasm of breast; Z82.3 Family history of stroke; Z81.0 Family history of intellectual disabilities; Z82.49 Family history of ischemic heart disease and other diseases of the circulatory system
CPT/HCPCS: 36415; 52356; 74018; 74176; 80053; 81001; 82360; 82962; 85025; 85610; 85730; 87086; 88300; C2617; J0330; J0696; J2175; J2405; J2704; J3010; 76000

== ENCOUNTER 2025-01-01 11:07 | Inpatient (IN) | payer MEDICARE, MEDICAID ==
[~2025-01-01] VITALS: Ht 162.6 cm; Wt 102.7 kg
--- NOTE | 2025-01-01 11:53 | ED.PDOC ---
General HPI Comments 64 y.o female with PMHx of multiple kidney stones, UTI's, DM and hyperlipidemia, presents to the ED for a chief complaint of right sided groin pain radiating to her back associated with pain on urination x 4 days. Patient reports currently being treated for multiple kidney stones observed via imaging and is on Cefradine. Patient denies any fever, chills, nausea, vomiting, hematuria, bloody stool. Chief Complaint: Urinary Time Seen by MD: 11:40 Primary Care Provider: LIZETT Reviewed notes: Nurses Notes, Medications, Allergies Allergies: Coded Allergies: Azithromycin (Verified Allergy, Severe, 01/01/25) Ciprofloxacin (Verified Allergy, Severe, throat swells, 04/26/24) Levofloxacin (Verified Allergy, Severe, anaphylaxis, 04/26/24) Penicillins (Verified Allergy, Unknown, 06/20/20) Sulfa Drugs (Verified Allergy, Unknown, 06/20/20) Sulfamethoxazole w/Trimethoprim (Verified Allergy, Unknown, 07/18/23) Home Meds Active Scripts Acetaminophen (Tylenol 8 Hour Arthritis) 650 Mg Tab, 650 MG PO TID, #30 TAB Prov:TESS AMADOR 07/18/23 Reported Medications Hydrocodone-Acetaminophen (Hydrocodone/Acetaminophen 7.5-325 mg) 1 Tab Tab, TAB PO 01/01/24 Insulin Aspart Protamine & Asp (Novolog Mix 70/30 Prefill (70-30) 100 Unit/ml) 1 Inj Inj, 1 INJ SC DAILY, INJ 09/02/23 Fluvoxamine Maleate (Fluvoxamine Maleate) 100 Mg Tab, 100 MG PO, TAB 01/31/22 Glimepiride (Glimepiride) 1 Mg Tab, 1 MG PO TID, TAB 03/05/20 Allopurinol (ZYLOPRIM TABLET) 100 Mg Tb, 1 TAB PO DAILY, #30 TAB 5 Refills 03/05/20 Sitagliptin Phosphate (Januvia) 50 Mg Tab, 25 MG PO QPM, TAB 03/05/20 Information Source: Patient Mode of Arrival: Ambulatory Severity: Moderate Timing: Days (4) Duration: Since onset Onset: Spontaneous Symptoms: Dysuria History of: UTI, Kidney stone Location: (R) Flank Modifying factors: None associated signs and symptoms: Flank Pain, Back Pain, Dysuria Past Medical History PAST MEDICAL HISTORY: Anxiety, CKF, Depression, DM, Gout, High Lipids, HTN, Kidney Stones, UTI'S Surgical History (Other): Lithotripsy x8 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 Family History Family History: Reviewed,noncontributory to illness Social History Smoker: Non-Smoker Alcohol: Denies ETOH Use Drugs: Denies Drug Use Lives In: Home Constitutional: denies: chills, diaphoresis, fatigue, fever, malaise, sweats, weakness, others EENTM: denies: blurred vision, double vision, ear bleeding, ear discharge, ear drainage, ear pain, ear ringing, eye pain, eye redness, hearing loss, mouth pain, mouth swelling, nasal discharge, nose bleeding, nose congestion, nose pain, photophobia, tearing, throat pain, throat swelling, voice changes, others Respiratory: denies: cough, hemoptysis, orthopnea, SOB at rest, shortness of breath, SOB with excertion, stridor, wheezing, others Cardiovascular: denies: chest pain, dizzy spells, diaphoresis, Dyspnea on exertion, edema, irregular heart beat, left arm pain, lightheadedness, palpitations, PND, syncope, others Gastrointestinal: denies: abdomen distended, abdominal pain, blood streaked bowels, constipated, diarrhea, dysphagia, difficulty swallowing, hematemesis, melena, nausea, poor appetite, poor fluid intake, rectal bleeding, rectal pain, vomiting, others Genitourinary: reports: dysuria, flank pain; denies: abnormal vagina bleeding, burning, dyspareunia, frequency, hematuria, incontinence, pain, , vagina discharge, urgency, others Neurological: denies: dizziness, fainting, headache, left sided numbness, left sided weakness, numbness, paresthesia, pre-existing deficit, right sided numbness, right sided weakness, seizure, speech problems, tingling, tremors, weakness, others Musculoskeletal: reports: back pain; denies: gout, joint pain, joint swelling, muscle pain, muscle stiffness, neck pain, others Integumetry: denies: bruises, change in color, change in hair/nails, dryness, laceration, lesions, lumps, rash, wounds, others Allergic/Immunocompromised: denies: Difficulty Healing, Frequent Infections, Hives, Itching, others Hematologic/Lymphatic: denies: anemia, blood clots, easy bleeding, easy bruising, swollen glands, others Endocrine: denies: excessive hunger, excessive sweating, excessive thirst, excessive urination, flushing, intolerance to cold, intolerance to heat, unexplained weight gain, unexplained weight loss, others Psychiatric: denies: anxiety, bipolar disorder, depression, hopeless, panic disorder, schizophrenia, sleepless, suicidal, others All Other Systems: Reviewed and Negative Physical Exam General Appearance: Moderate Distress HEENT: Normal ENT Inspection, Pharynx Normal, TMs Normal Neck: Full Range of Motion, Non-Tender, Normal, Normal Inspection Respiratory: Chest Non-Tender, Lungs Clear, No Accessory Muscle Use, No Respiratory Distress, Normal Breath Sounds Cardiovascular: No Edema, No JVD, No Murmur, No Gallop, Normal Peripheral Pulses, Regular Rate/Rhythm Breast Exam: Deferred Gastrointestinal: No Organomegaly, Non Tender, No Pulsatile Mass, Normal Bowel Sounds, Soft Genitalia: Deferred Pelvic: Deferred Rectal: Deferred Extremities: No calf tenderness, Normal capillary refill, Normal inspection, Normal range of motion, Non-tender, No pedal edema Musculoskeletal : Location: Right Extremity Location: Back Apperance: Limited ROM Neurologic: Alert, post form remover II-XII nml as Tested, No Motor Deficits, Normal Affect, Normal Mood, No Sensory Deficits Cerebellar Function: Normal Reflexes: Normal Skin: Dry, Normal Color, Warm Lymphatic: No Adenopathy Was a procedure done? Was a procedure done?: No Differential Diagnosis Kidney stone (Female): Musculoskeletal pain, Ovarian torsion, Pyelonephritis, Strain, Urolithiasis Urinary Problem (Female): Pyelonephritis, Urolithiasis, UTI X-Ray, Labs, Meds, VS Vital Signs Date Time Temp Pulse Resp B/P (MAP) Pulse Ox O2 Delivery O2 Flow Rate FiO2 01/01/25 14:08 98.7 86 16 138/96 (110) 97 98.7 01/01/25 14:08 86 16 96 Room Air 01/01/25 11:10 97.9 92 16 142/68 (92) 94 97.9 01/01/25 11:07 97.9 92 16 142/68 (92) 94 97.9 Lab Test 01/01/25 12:48 Range/Units White Blood Count 8.0 4.4-10.8 10^3/uL Red Blood Count 4.86 4.0-5.20 10^6/uL Hemoglobin 14.4 12.2-16.2 g/dL Hematocrit 42.6 36.0-46.0 % Mean Corpuscular Volume 87.7 80.0-100.0 fL Mean Corpuscular Hemoglobin 29.6 28.0-32.0 pg Mean Corpuscular Hemoglobin Concent 33.8 32.0-36.0 g/dL Red Cell Distribution Width 14.4 H 11.8-14.3 % Platelet Count 225 140-450 10^3/uL Mean Platelet Volume 8.8 6.9-10.8 fL Neutrophils (%) (Auto) 62.4 37.0-80.0 % Lymphocytes (%) (Auto) 28.5 10.0-50.0 % Monocytes (%) (Auto) 6.0 0.0-12.0 % Eosinophils (%) (Auto) 2.3 0.0-7.0 % Basophils (%) (Auto) 0.8 0.0-2.0 % Neutrophils # (Auto) 5.0 1.6-8.6 10 ^3/uL Lymphocytes # (Auto) 2.3 0.4-5.4 10 ^3/uL Monocytes # (Auto) 0.5 0-1.3 10 ^3/uL Eosinophils # (Auto) 0.2 0-0.8 10 ^3/uL Basophils # (Auto) 0.1 0-0.2 10 ^3/uL Nucleated Red Blood Cells 0.0 % Sodium Level 140 136-145 mmol/L Potassium Level 4.0 3.5-5.1 mmol/L Chloride Level 104 98-107 mmol/L Carbon Dioxide Level 26 20-31 mmol/L Anion Gap 10 5-15 Blood Urea Nitrogen 16 9-23 mg/dL Creatinine 1.04 H 0.550-1.02 mg/dL Glomerular Filtration Rate Calc 60 >90 mL/min BUN/Creatinine Ratio 15.4 10.0-20.0 Serum Glucose 169 H 74-106 mg/dL Calcium Level 10.6 H 8.7-10.4 mg/dL Current Medications Medications (Trade) Dose Ordered Sig/Konstantin Route Start Time Stop Time Status Last Admin Sodium Chloride 1,000 ml @ 1,000 mls/hr Q1H ONCE IV 01/01/25 12:45 01/01/25 13:44 DC 01/01/25 14:08 CAT scan of the abdomen and pelvis shows: IMPRESSION: 1. Multiple right-sided stones are seen including a 1.2 cm stone in the renal pelvis. Mild right-sided hydronephrosis. 2. Severe degenerative arthrosis of the right hip with [id number] apposition The CBC is within normal limits The chemistry panel is within normal limits The patient was given a 1 L bolus of normal saline At this time, the patient is being admitted She is still having pain and so this is consistent with intractable kidney stones Images Reviewed?: Images reviewed and evaluated by me Time of 1ST Reevaluation: 11:48 Reevaluation 1ST: Unchanged Patient Education/Counseling: Diagnosis, Treatment, Prognosis Family Education/Counseling: No Family Present Departure 1 Departure Time of Disposition: 14:34 Impression: Primary Impression: Acute abdominal pain Additional Impressions: Hx of renal calculi Hydronephrosis, right Disposition: ADMITTED INPATIENT Admit to: Med Surg Condition: Fair Critical Care Note Critical Care Time?: No Stability Stability form required: Yes Unstable for transfer: ED Physician Assesment (Clinical assesment) I personally scribed for EDELMIRA BOWERS MD ([email or web address]) on 01/01/25 at 11:53. Electronically submitted by Lida Roth ([employer]). I personally scribed for EDELMIRA BOWERS MD ([email or web address]) on 01/01/25 at 12:29. Electronically submitted by Lida Roth ([employer]). EDELMIRA BOWERS MD January 01, 2025 11:53
--- NOTE | 2025-01-01 12:22 | DVH ---
Exam: CT CT AB PEL WO CON-NO ORAL OR IV History: rght lower quad pain Comparison Study: CT CT AB PEL WO CON-NO ORAL OR IV on DOS: 06/23/24, CT CT AB PEL WO CON-NO ORAL OR IV on DOS: 05/09/24, CT CT AB PEL WO CON-NO ORAL OR IV on DOS: 04/13/24, CT CT AB PEL WO CON-NO ORAL OR IV on DOS: 12/31/23, CT CT AB PEL WO CON-NO ORAL OR IV on DOS: 09/12/23 Technique: Multidetector spiral CT of the abdomen was performed from lung bases to pubic symphysis. Imaging was performed without IV contrast. Axial, coronal and sagittal multiplanar reformats were ob tained from the axial data set by the technologist. Radiation Dose : 1. Abdomen/Pelvis: CTDIvol 22.29 mGy, DLP 1248.55 mGy*cm. Findings: Evaluation of solid organs is limited due to lack of intravenous contrast use. Lung Bases: No acute or significant lung base finding. Normal heart size. No pleural or pericardial effusion. Liver: The liver is normal in size. No focal lesions. Gallbladder and Biliary Tree: Unremarkable Spleen: Unremarkable Pancreas: The pancreas is grossly normal in appearance. Adrenal Glands: Unremarkable Kidneys: Multiple right-sided stones are seen including a 1.2 cm stone in the renal pelvis. Mild rig ht-sided hydronephrosis. Unremarkable left kidney. Bladder: Grossly unremarkable for degree of distention. Bowel: The stomach is grossly normal in appearance. Small bowel and colon are normal in caliber and d istribution. The appendix is not visualized; however, no secondary findings of acute appendicitis id entified. Ascites: Absent Lymphadenopathy: No mesenteric, retroperitoneal or periportal lymphadenopathy. Abdominal Wall and Mesentery: Unremarkable. Vasculature: The visualized abdominal aorta is normal in size and caliber. Evaluation of abdominal a nd pelvic vessels is limited due to lack of intravenous contrast. Pelvic Organs: Unremarkable Musculoskeletal: No aggressive focal bony lesions, acute fractures or dislocation. Severe degenerativ e arthrosis of the right hip with [id number] apposition. IMPRESSION: 1. Multiple right-sided stones are seen including a 1.2 cm stone in the renal pelvis. Mild right-alejandra ed hydronephrosis. 2. Severe degenerative arthrosis of the right hip with [id number] apposition Radiation optimization: All CT scans at this facility use at least one of these dose optimization chante hniques: automated exposure control mA and/or kV adjustment per patient size (includes targeted exam s where dose is matched to clinical indication) or iterative reconstruction.
[2025-01-01 13:07] LABS: Basophils # (auto) 0.1 10 ^3/uL (0-0.2); Basophils % (auto) 0.8 % (0.0-2.0); Eosinophils # (auto) 0.2 10 ^3/uL (0-0.8); Eosinophils % (auto) 2.3 % (0.0-7.0); Hematocrit 42.6 % (36.0-46.0); Hemoglobin 14.4 g/dL (12.2-16.2); Lymphocytes # (auto) 2.3 10 ^3/uL (0.4-5.4); Lymphocytes % (auto) 28.5 % (10.0-50.0); Mean Corpuscular Hemoglobin 29.6 pg (28.0-32.0); Mean Corpuscular Hgb Conc. 33.8 g/dL (32.0-36.0); Mean Corpuscular Volume 87.7 fL (80.0-100.0); Monocytes # (auto) 0.5 10 ^3/uL (0-1.3); Neutrophils % (auto) 62.4 % (37.0-80.0); Platelet Count (auto) 225 10^3/uL (140-450); Red Blood Cells 4.86 10^6/uL (4.0-5.20); Red Cell Distribution Width 14.4 % (11.8-14.3)
[2025-01-01 13:16] LABS: Chloride 104 mmol/L (98-107); Sodium 140 mmol/L (136-145)
[2025-01-01 13:17] LABS: Anion Gap 10 (5-15); Carbon Dioxide 26 mmol/L (20-31)
[2025-01-01 13:23] LABS: BUN/Creatinine Ratio 15.4 (10.0-20.0); Blood Urea Nitrogen 16 mg/dL (9-23)
[2025-01-01 13:25] LABS: Calcium 10.6 mg/dL (8.7-10.4); Glucose 169 mg/dL (74-106)
[2025-01-01] MEDS: SODIUM CHLORIDE 0.9% 1,000 ML IV ONE (14:08)
[2025-01-01] MEDS ORDERED: HYDROmorphone HCL 2 MG/ML VL/or syr IV PRN (17:00)
[2025-01-01] MEDS ORDERED: LACTATED RINGER'S 1,000 ML IV ONE (17:00)
[2025-01-01] MEDS ORDERED: ACETAMINOPHEN 325 MG TAB PO PRN (17:00)
[2025-01-01] MEDS ORDERED: DOCUSATE SOD 100 MG CAP PO PRN (17:00)
--- NOTE | 2025-01-01 17:08 | DVHHP2 ---
Admitting Diagnosis: Right groin pain History of Present Illness 64 y.o female with PMHx of multiple kidney stones, UTI's, DM and hyperlipidemia, presents to the ED for a chief complaint of right sided groin pain radiating to her back associated with pain on urination x 4 days. Patient reports currently being treated for multiple kidney stones observed via imaging and is on Cefradine. Patient denies any fever, chills, nausea, vomiting, hematuria, bloody stool. 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 Family History Family History: Reviewed,noncontributory to illness Social History Smoker: Non-Smoker Alcohol: Denies ETOH Use Drugs: Denies Drug Use Lives In: Home Patient Family History: Alzheimer's disease G8 MOTHER Cardiovascular disease G8 FATHER Cerebrovascular accident (CVA) G8 FATHER FH: breast cancer G8 MOTHER Allergies: Coded Allergies: Azithromycin (Verified Allergy, Severe, 01/01/25) Ciprofloxacin (Verified Allergy, Severe, throat swells, 04/26/24) Levofloxacin (Verified Allergy, Severe, anaphylaxis, 04/26/24) Penicillins (Verified Allergy, Unknown, 06/20/20) Sulfa Drugs (Verified Allergy, Unknown, 06/20/20) Sulfamethoxazole w/Trimethoprim (Verified Allergy, Unknown, 07/18/23) Home Meds Active Scripts Acetaminophen (Tylenol 8 Hour Arthritis) 650 Mg Tab, 650 MG PO TID, #30 TAB Prov:TESS AMADOR 07/18/23 Reported Medications Hydrocodone-Acetaminophen (Hydrocodone/Acetaminophen 7.5-325 mg) 1 Tab Tab, TAB PO 01/01/24 Insulin Aspart Protamine & Asp (Novolog Mix 70/30 Prefill (70-30) 100 Unit/ml) 1 Inj Inj, 1 INJ SC DAILY, INJ 09/02/23 Fluvoxamine Maleate (Fluvoxamine Maleate) 100 Mg Tab, 100 MG PO, TAB 01/31/22 Glimepiride (Glimepiride) 1 Mg Tab, 1 MG PO TID, TAB 03/05/20 Allopurinol (ZYLOPRIM TABLET) 100 Mg Tb, 1 TAB PO DAILY, #30 TAB 5 Refills 03/05/20 Sitagliptin Phosphate (Januvia) 50 Mg Tab, 25 MG PO QPM, TAB 03/05/20 Current Medications Current Medications Medications (Trade) Dose Ordered Sig/Konstantin Route PRN Reason Start Time Stop Time Status Last Admin Ceftriaxone Sodium 50 ml @ 100 mls/hr DAILY IV 01/02/25 10:00 UNV Sodium Chloride (Saline Lock Ns) 10 ml Q8HR IV 01/01/25 22:00 UNV Docusate Sodium (Colace Capsule) 100 mg BIDPRN PRN PO FOR CONSTIPATION 01/01/25 17:00 UNV Acetaminophen (Tylenol Tablet) 650 mg Q6HP PRN PO PAIN SCALE 1-3 OR TEMP>100.4 01/01/25 17:00 UNV Acetaminophen/ Hydrocodone Bitart (Baldwin 5/325MG Tab) 1 tab Q4HP PRN PO MODERATE PAIN (4-6 PAIN SCALE) 01/01/25 17:00 UNV Hydromorphone HCl (Dilaudid Injection) 0.5 mg Q4HP PRN IV SEVERE PAIN (7-10 PAIN SCALE) 01/01/25 17:00 UNV Ondansetron HCl (Zofran) 4 mg Q4HP PRN IV NAUSEA / VOMITING 01/01/25 17:00 UNV Vital Signs Vital Signs Date Time Temp Pulse Resp B/P (MAP) Pulse Ox O2 Delivery O2 Flow Rate FiO2 01/01/25 14:08 98.7 86 16 138/96 (110) 97 98.7 01/01/25 14:08 Room Air Physical Exam Generally 64 years old woman, overweight, sitting on chair. Mild distress HEENT-atraumatic normocephalic Heart-regular rate and rhythm Lungs clear to auscultate bilaterally Abdomen soft nontender nondistended Musculoskeletal-no edema cyanosis Neuro-AO x3, no focal deficits Results Labs Test 01/01/25 12:48 Range/Units White Blood Count 8.0 4.4-10.8 10^3/uL Red Blood Count 4.86 4.0-5.20 10^6/uL Hemoglobin 14.4 12.2-16.2 g/dL Hematocrit 42.6 36.0-46.0 % Mean Corpuscular Volume 87.7 80.0-100.0 fL Mean Corpuscular Hemoglobin 29.6 28.0-32.0 pg Mean Corpuscular Hemoglobin Concent 33.8 32.0-36.0 g/dL Red Cell Distribution Width 14.4 H 11.8-14.3 % Platelet Count 225 140-450 10^3/uL Mean Platelet Volume 8.8 6.9-10.8 fL Neutrophils (%) (Auto) 62.4 37.0-80.0 % Lymphocytes (%) (Auto) 28.5 10.0-50.0 % Monocytes (%) (Auto) 6.0 0.0-12.0 % Eosinophils (%) (Auto) 2.3 0.0-7.0 % Basophils (%) (Auto) 0.8 0.0-2.0 % Neutrophils # (Auto) 5.0 1.6-8.6 10 ^3/uL Lymphocytes # (Auto) 2.3 0.4-5.4 10 ^3/uL Monocytes # (Auto) 0.5 0-1.3 10 ^3/uL Eosinophils # (Auto) 0.2 0-0.8 10 ^3/uL Basophils # (Auto) 0.1 0-0.2 10 ^3/uL Nucleated Red Blood Cells 0.0 % Sodium Level 140 136-145 mmol/L Potassium Level 4.0 3.5-5.1 mmol/L Chloride Level 104 98-107 mmol/L Carbon Dioxide Level 26 20-31 mmol/L Anion Gap 10 5-15 Blood Urea Nitrogen 16 9-23 mg/dL Creatinine 1.04 H 0.550-1.02 mg/dL Glomerular Filtration Rate Calc 60 >90 mL/min BUN/Creatinine Ratio 15.4 10.0-20.0 Serum Glucose 169 H 74-106 mg/dL Calcium Level 10.6 H 8.7-10.4 mg/dL Primary Diagnosis Side renal calculus Mild right hydronephrosis rule out urinary tract infection Plan CT abdomen and pelvis shows right side renal calculus, mild right-sided hydronephrosis Check UA and urine culture for possible UTI Start ceftriaxone 1 g daily if positive urinary tract infection IV fluids Start tamsulosin Urology consulted in ED. NPO after midnight for possible procedure tomorrow January 02 Full code SCD for DVT prophylaxis No GI prophylaxis needed Plan discussed with: Patient Problems List: (1) Renal calculus (2) Hydronephrosis (3) Intractable abdominal pain Status: Acute Date of Service: January 01, 2025 Billing Provider: LIZ PERDOMO MD Common Visit Codes: [id number] INP/OBS CARE (MOD) LIZ PERDOMO MD January 01, 2025 17:08
[2025-01-01 17:39] LABS: INR 0.97 (0.9-1.15); Prothrombin Time 10.3 sec (9.3-11.8)
[2025-01-01] MEDS: SITAGLIPTIN PHOSPHATE 25 MG PO SCH (18:00)
[2025-01-01 18:15] VITALS: BP 140/61; PULSE 76; TEMP 97.8; O2SAT 92
[2025-01-01] MEDS: cefTRIAXone 1GM/50ML D5W 50 ML IV ONE (18:23)
[2025-01-01] MEDS: TAMSULOSIN HYDROCHLORIDE 0.4 MG CAP PO SCH (18:35)
[2025-01-01] MEDS ORDERED: DEXTROSE (50%) 50ML SYRG IV PRN (19:45)
[2025-01-01] MEDS: HYDROcodone-ACET 5/325MG TAB PO PRN (20:29)
[2025-01-01] MEDS: ONDANSETRON HCL 4 MG/2 ML VIAL IV PRN (20:29)
[2025-01-01 21:00] VITALS: BP_SYST 139; BP_SYST 170; BP_DIAS 114; BP_DIAS 80; PULSE 75; PULSE 91; RESP 18; TEMP 97.5; TEMP 98; O2SAT 96
[2025-01-01] MEDS: ACCU-CHEK COMFORT CURVE STRIP VI SCH (22:12)
[2025-01-01] MEDS: SODIUM CHLOR 0.9% PF (SALINE LOCK) 10ML VIAL/SYR IV SCH (22:14)
[2025-01-01] MEDS: InsuLIN REG 1unit/0.01ml Soln (100units/ml) SC SCH (22:15)
[2025-01-02] VITALS (7 sets, daily range): BP systolic 130–148; BP diastolic 66–73; PULSE 80–92; RESP 16–19; TEMP 97.6–98.8; O2SAT 95–97
[2025-01-02 01:28] LABS: Urine Bacteria None Seen /hpf (None Seen)
[2025-01-02 02:00] LABS: Urine Blood TRACE /uL (Negative); Urine Clarity Turbid (Clear); Urine Color Yellow (Yellow); Urine Mucus FEW (None Seen); Urine Protein, UAD 1+ (Negative); Urine Squamous Epithelial Cell FEW /hpf (<5); Urine Urobilinogen Normal (Negative); Urine WBC 1 /HPF (0-5); Urine pH 5.5 (5.0-9.0)
[2025-01-02 07:00] LABS: Basophils # (auto) 0 10 ^3/uL (0-0.2); Basophils % (auto) 0.5 % (0.0-2.0); Eosinophils # (auto) 0.1 10 ^3/uL (0-0.8); Eosinophils % (auto) 1.5 % (0.0-7.0); Hematocrit 39.3 % (36.0-46.0); Hemoglobin 13.3 g/dL (12.2-16.2); Lymphocytes # (auto) 1.5 10 ^3/uL (0.4-5.4); Lymphocytes % (auto) 17.4 % (10.0-50.0); Mean Corpuscular Hemoglobin 30.3 pg (28.0-32.0); Monocytes # (auto) 0.5 10 ^3/uL (0-1.3); Monocytes % (auto) 5.8 % (0.0-12.0); Neutrophils # (auto) 6.3 10 ^3/uL (1.6-8.6); Neutrophils % (auto) 74.8 % (37.0-80.0); Platelet Count (auto) 205 10^3/uL (140-450); Red Blood Cells 4.41 10^6/uL (4.0-5.20); Red Cell Distribution Width 14.2 % (11.8-14.3); White Blood Cell 8.5 10^3/uL (4.4-10.8)
[2025-01-02 07:04] LABS: Alanine Aminotransferase 17 U/L (7-40); Albumin 4.5 g/dL (3.2-4.8); Alkaline Phosphatase 66 U/L (46-116); Anion Gap 10 (5-15); Aspartate Aminotransferase 15 U/L (13-40); BUN/Creatinine Ratio 13.4 (10.0-20.0); Blood Urea Nitrogen 13 mg/dL (9-23); Calcium 9.9 mg/dL (8.7-10.4); Carbon Dioxide 23 mmol/L (20-31); Chloride 107 mmol/L (98-107); Sodium 140 mmol/L (136-145)
[2025-01-02 07:05] LABS: Glucose 197 mg/dL (74-106)
--- NOTE | 2025-01-02 08:22 | DVH ---
CHEST RADIOGRAPH Indication: pre op Technique: Single frontal view of the chest was obtained Comparison: CHEST PORTABLE on DOS: 01/19/21, CHEST PORTABLE on DOS: 01/05/21 FINDINGS: Lines and Tubes: None Lungs: No focal consolidation. Pleura: No effusion. No pneumothorax. Cardiomediastinal contours: Unremarkable Bones: No acute osseous abnormality. IMPRESSION: 1. No acute cardiopulmonary disease.
[2025-01-02] MEDS: cefTRIAXone 1GM/50ML D5W 50 ML IV SCH (10:13)
--- NOTE | 2025-01-02 11:26 | DVHPNRES ---
Progress Note Date Seen: January 02, 2025 Resident Creating Document: RADHA REICH RESIDENT Has the PT tested + for MRSA If YES, has PT been informed?: No Medical Necessity Reason Pt with a Central, PICC or Fol: No Medical Necessity Reason History of Present Illness 64 y.o female with PMHx of multiple kidney stones, UTI's, DM and hyperlipidemia, presents to the ED for a chief complaint of right sided groin pain radiating to her back associated with pain on urination x 4 days. Patient reports currently being treated for multiple kidney stones observed via imaging and is on Cefradine. Patient denies any fever, chills, nausea, vomiting, hematuria, bloody stool. PAST MEDICAL HISTORY: Anxiety, CKF, Depression, DM, Gout, High Lipids, HTN, Kidney Stones, UTI'S Surgical History (Other): Lithotripsy x8 PSYCHOLOGY ASSOCIATE History: Denies all PSYCHOLOGY ASSOCIATE Hx 01/02 Patient is a 64-year-old female past medical history of kidney stones with multiple lithotripsies; UTI, DM and hyperlipidemia presents to the ED with a main complaint right sided back pain with radiation to the groin. Pain is also associated with urination as well. She denied any fever chills cough or shortness of breaths. CT abdomen revealed Multiple right-sided stones are seen including a 1.2 cm stone in the renal pelvis. Mild right-sided hydronephrosis. Severe degenerative arthrosis of the right hip with [id number] apposition. Her last lithotripsy was June 2024. Subjective Review of Systems Constitutional: Denies fever no chills no feeling of malaise HEENT: Denies headache, ear pain, ear discharges, conjunctivitis, nasal discharge throat pain Cardiovascular: Denies chest pain, palpitation, orthopnea, PND, or pedal edema Respiratory: Denies shortness of breath, cough cough, sputum production, hemoptysis, GI: Denies abdominal pain, nausea, vomiting, diarrhea, hematemesis, hematochezia, : Denies frequency, urgency, hematuria, Endocrine: Denies unintentional weight gain or weight loss, feeling of hot flashes, Claudio: Denies easy bruising, bleeding disorders, epistaxis Musculoskeletal: Denies joint pains, muscle aches Psych: No evidence of depression, melissa, suicidal ideation Objective vital signs Vital Sign Date Time Temp Pulse Resp B/P (MAP) Pulse Ox O2 Delivery O2 Flow Rate FiO2 01/02/25 09:00 97.6 80 16 148/66 (93) 96 97.6 01/02/25 02:26 Room Air* 0 21 medications Current Medications Medications Dose Ordered Sig/Konstantin Route Start Time Stop Time Status Last Admin Dose Admin Ceftriaxone Sodium 50 ml @ 100 mls/hr DAILY IV 01/02/25 10:00 01/02/25 10:13 100 MLS/HR Sodium Chloride 10 ml Q8HR IV 01/01/25 22:00 01/02/25 05:26 10 ML Docusate Sodium 100 mg BIDPRN PRN PO 01/01/25 17:00 Acetaminophen 650 mg Q6HP PRN PO 01/01/25 17:00 Acetaminophen/ Hydrocodone Bitart 1 tab Q4HP PRN PO 01/01/25 17:00 01/01/25 20:29 1 TAB Hydromorphone HCl 0.5 mg Q4HP PRN IV 01/01/25 17:00 Ondansetron HCl 4 mg Q4HP PRN IV 01/01/25 17:00 01/01/25 20:29 4 MG Allopurinol 100 mg DAILY PO 01/02/25 10:00 Patient Own Medication 25 mg QPM PO 01/01/25 18:00 Tamsulosin HCl 0.4 mg DAILY PO 01/01/25 17:15 01/01/25 18:35 0.4 MG Diagnostic Test (Pha) 1 strip ACHS 01/01/25 22:00 01/02/25 07:25 1 STRIP Insulin Human Regular ACHS SC 01/01/25 22:00 01/01/25 22:15 4 UNITS Dextrose 50 ml UD PRN IV 01/01/25 19:45 Examination General Appearance: Alert, Oriented X3, Cooperative, No acute distress lying in bed HEENT: Atraumatic, PERRLA, EOMI, Mucous membrane moist/pink Respiratory: Clear to auscultation, Normal air movement Cardiovascular: Regular rate, Normal S1, Normal S2, No murmurs, no chest wall tenderness Abdominal: Enlarged abdomen; mild tenderness right flank, bowel sounds present, no scars noted Extremities: No clubbing, No cyanosis, No edema, Normal pulses, No tenderness/swelling Skin: No rashes, No breakdown, No significant lesion Neuro: Normal gait, Normal speech, Strength at 5/5 X4 ext, Normal tone, Sensation intact, Cranial nerves 3-12 NL, Reflexes 2+ Psych/Mental Status: Mental status NL, Mood NL laboratory and microbiology Laboratory Tests 01/02/25 05:45 Test 01/02/25 05:45 Range/Units Serum Glucose 197 H 74-106 mg/dL Problem List/Assessment/Plan Problem List/Assessment/Plan Assessment Nephrolithiasis measuring 1.2 cm with hydronephrosis Hydronephrosis Diabetes mellitus type 2 MALINDA due to VMN CKD 2 Anxiety Depression History of gout Hyperlipidemia History of UTI. Obesity grade 2, BMI 38.9 Plan Pain management with [place]/Toradol Tamsulosin IV hydration Continue home mediations Urology consult Goal of care discussed for 20 minutes. full code case and plan discussed with DR. Garnica Plan discussed with: Patient My Orders My Orders Orders - RADHA REICH RESIDENT Procedure Category Date Status Time * Urology Consult CONS 01/02/25 Transmitted 10:21 Date of Service: January 02, 2025 Billing Provider: IVANIA GARNICA MD Common Visit Codes: [id number] INP/OBS CARE(HIGH) RADHA REICH RESIDENT January 02, 2025 11:26 IVANIA GARNICA MD January 02, 2025 21:07
[2025-01-02] MEDS ORDERED: ACETAMINOPHEN 650 MG PO SCH (14:00)
[2025-01-02] MEDS: ALLOPURINOL 100 MG TAB PO SCH (14:39)
--- NOTE | 2025-01-02 20:31 | DVHINCON2 ---
Date of service: January 02, 2025 Referring Physician Hospitalist Reason for Consultation Right renal stones History of Present Illness 64 y.o female with PMHx of multiple kidney stones, UTI's, DM and hyperlipidemia, presents to the ED for a chief complaint of right sided groin pain radiating to her back associated with pain on urination x 4 days. Patient reports currently being treated for multiple kidney stones observed via imaging and is on Cefradine. Patient denies any fever, chills, nausea, vomiting, hematuria, bloody stool. Chief Complaint: Urinary Primary Care Provider: LIZETT Reviewed notes: Nurses Notes, Medications, Allergies Allergies: Coded Allergies: Azithromycin (Verified Allergy, Severe, 01/01/25) Ciprofloxacin (Verified Allergy, Severe, throat swells, 04/26/24) Levofloxacin (Verified Allergy, Severe, anaphylaxis, 04/26/24) Penicillins (Verified Allergy, Unknown, 06/20/20) Sulfa Drugs (Verified Allergy, Unknown, 06/20/20) Sulfamethoxazole w/Trimethoprim (Verified Allergy, Unknown, 07/18/23) Home Meds Active Scripts Acetaminophen (Tylenol 8 Hour Arthritis) 650 Mg Tab, 650 MG PO TID, #30 TAB Prov:TESS AMADOR 07/18/23 Reported Medications Hydrocodone-Acetaminophen (Hydrocodone/Acetaminophen 7.5-325 mg) 1 Tab Tab, TAB PO 01/01/24 Insulin Aspart Protamine & Asp (Novolog Mix 70/30 Prefill (70-30) 100 Unit/ml) 1 Inj Inj, 1 INJ SC DAILY, INJ 09/02/23 Fluvoxamine Maleate (Fluvoxamine Maleate) 100 Mg Tab, 100 MG PO, TAB 01/31/22 Glimepiride (Glimepiride) 1 Mg Tab, 1 MG PO TID, TAB 03/05/20 Allopurinol (ZYLOPRIM TABLET) 100 Mg Tb, 1 TAB PO DAILY, #30 TAB 5 Refills 03/05/20 Sitagliptin Phosphate (Januvia) 50 Mg Tab, 25 MG PO QPM, TAB 03/05/20 Information Source: Patient Mode of Arrival: Ambulatory Severity: Moderate Timing: Days (4) Duration: Since onset Onset: Spontaneous Symptoms: Dysuria History of: UTI, Kidney stone Location: (R) Flank Modifying factors: None associated signs and symptoms: Flank Pain, Back Pain, Dysuria Past Medical History Anxiety, CKF, Depression, DM, Gout, High Lipids, HTN, Kidney Stones, UTI'S Past Surgical History Right URSLL CVAC 06/23/24 Lithotripsy x8 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: 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 DATAPOWER DEVELOPER Hx Family History: Alzheimer's disease G8 MOTHER Cardiovascular disease G8 FATHER Cerebrovascular accident (CVA) G8 FATHER FH: breast cancer G8 MOTHER Allergies: Coded Allergies: Azithromycin (Verified Allergy, Severe, 01/01/25) Ciprofloxacin (Verified Allergy, Severe, throat swells, 04/26/24) Levofloxacin (Verified Allergy, Severe, anaphylaxis, 04/26/24) Penicillins (Verified Allergy, Unknown, 06/20/20) Sulfa Drugs (Verified Allergy, Unknown, 06/20/20) Sulfamethoxazole w/Trimethoprim (Verified Allergy, Unknown, 07/18/23) Home Meds Active Scripts Acetaminophen (Tylenol 8 Hour Arthritis) 650 Mg Tab, 650 MG PO TID, #30 TAB Prov:TESS AMADOR 07/18/23 Reported Medications Hydrocodone-Acetaminophen (Hydrocodone/Acetaminophen 7.5-325 mg) 1 Tab Tab, TAB PO 01/01/24 Insulin Aspart Protamine & Asp (Novolog Mix 70/30 Prefill (70-30) 100 Unit/ml) 1 Inj Inj, 1 INJ SC DAILY, INJ 09/02/23 Fluvoxamine Maleate (Fluvoxamine Maleate) 100 Mg Tab, 100 MG PO, TAB 01/31/22 Glimepiride (Glimepiride) 1 Mg Tab, 1 MG PO TID, TAB 03/05/20 Allopurinol (ZYLOPRIM TABLET) 100 Mg Tb, 1 TAB PO DAILY, #30 TAB 5 Refills 03/05/20 Sitagliptin Phosphate (Januvia) 50 Mg Tab, 25 MG PO QPM, TAB 03/05/20 Current Medications Current Medications Medications (Trade) Dose Ordered Sig/Konstantin Route PRN Reason Start Time Stop Time Status Last Admin Ceftriaxone Sodium 50 ml @ 100 mls/hr DAILY IV 01/02/25 10:00 01/02/25 10:13 Sodium Chloride (Saline Lock Ns) 10 ml Q8HR IV 01/01/25 22:00 01/02/25 14:39 Allopurinol (Zyloprim Tablet) 100 mg DAILY PO 01/02/25 10:00 01/02/25 14:39 Diagnostic Test (Pha) (Accu-Chek Comfort Curve T) 1 strip ACHS 01/01/25 22:00 01/02/25 17:00 Insulin Human Regular (InsuLIN R) ACHS SC 01/01/25 22:00 01/02/25 17:49 Patient Own Medication 650 mg TID PO 01/02/25 14:00 UNV Acetaminophen/ Hydrocodone Bitart (Spring 7.5/325MG Tab) 1 tab DAILY PO 01/03/25 10:00 Patient Own Medication 1 inj DAILY SC 01/03/25 10:00 Review of Systems Constitutional: denies: chills, diaphoresis, fatigue, fever, malaise, sweats, weakness, others EENTM: denies: blurred vision, double vision, ear bleeding, ear discharge, ear drainage, ear pain, ear ringing, eye pain, eye redness, hearing loss, mouth pain, mouth swelling, nasal discharge, nose bleeding, nose congestion, nose pain, photophobia, tearing, throat pain, throat swelling, voice changes, others Respiratory: denies: cough, hemoptysis, orthopnea, SOB at rest, shortness of breath, SOB with excertion, stridor, wheezing, others Cardiovascular: denies: chest pain, dizzy spells, diaphoresis, Dyspnea on exertion, edema, irregular heart beat, left arm pain, lightheadedness, palpitations, PND, syncope, others Gastrointestinal: denies: abdomen distended, abdominal pain, blood streaked bowels, constipated, diarrhea, dysphagia, difficulty swallowing, hematemesis, melena, nausea, poor appetite, poor fluid intake, rectal bleeding, rectal pain, vomiting, others Genitourinary: reports: dysuria, flank pain; denies: abnormal vagina bleeding, burning, dyspareunia, frequency, hematuria, incontinence, pain, , vagina discharge, urgency, others Neurological: denies: dizziness, fainting, headache, left sided numbness, left sided weakness, numbness, paresthesia, pre-existing deficit, right sided numbness, right sided weakness, seizure, speech problems, tingling, tremors, weakness, others Musculoskeletal: reports: back pain; denies: gout, joint pain, joint swelling, muscle pain, muscle stiffness, neck pain, others Integumetry: denies: bruises, change in color, change in hair/nails, dryness, laceration, lesions, lumps, rash, wounds, others Allergic/Immunocompromised: denies: Difficulty Healing, Frequent Infections, Hives, Itching, others Hematologic/Lymphatic: denies: anemia, blood clots, easy bleeding, easy bruising, swollen glands, others Endocrine: denies: excessive hunger, excessive sweating, excessive thirst, excessive urination, flushing, intolerance to cold, intolerance to heat, unexplained weight gain, unexplained weight loss, others Psychiatric: denies: anxiety, bipolar disorder, depression, hopeless, panic disorder, schizophrenia, sleepless, suicidal, others All Other Systems: Reviewed and Negative Vital Signs Vital Signs Date Time Temp Pulse Resp B/P (MAP) Pulse Ox O2 Delivery O2 Flow Rate FiO2 01/02/25 17:00 97.8 80 17 130/69 (89) 96 97.8 01/02/25 08:00 Room Air* 0 21 Physical Exam General Appearance: Moderate Distress HEENT: Normal ENT Inspection, Pharynx Normal, TMs Normal Neck: Full Range of Motion, Non-Tender, Normal, Normal Inspection Respiratory: Chest Non-Tender, Lungs Clear, No Accessory Muscle Use, No R espiratory Distress, Normal Breath Sounds Cardiovascular: No Edema, No JVD, No Murmur, No Gallop, Normal Peripheral Pulses, Regular Rate/Rhythm Breast Exam: Deferred Gastrointestinal: No Organomegaly, Non Tender, No Pulsatile Mass, Normal Bowel Sounds, Soft Genitalia: Deferred Pelvic: Deferred Rectal: Deferred Extremities: No calf tenderness, Normal capillary refill, Normal inspection, Normal range of motion, Non-tender, No pedal edema Musculoskeletal : Location: Right Extremity Location: Back Apperance: Limited ROM Neurologic: Alert, paper gluing operator II-XII nml as Tested, No Motor Deficits, Normal Affect, Normal Mood, No Sensory Deficits Cerebellar Function: Normal Reflexes: Normal Skin: Dry, Normal Color, Warm Lymphatic: No Adenopathy Labs/Diagnostic Data Labs Test 01/02/25 17:39 01/02/25 05:45 01/02/25 00:28 01/01/25 17:16 Range/Units POC Glucose 195 H 70-106 mg/dl White Blood Count 8.5 4.4-10.8 10^3/uL Red Blood Count 4.41 4.0-5.20 10^6/uL Hemoglobin 13.3 12.2-16.2 g/dL Hematocrit 39.3 36.0-46.0 % Mean Corpuscular Volume 89.0 80.0-100.0 fL Mean Corpuscular Hemoglobin 30.3 28.0-32.0 pg Mean Corpuscular Hemoglobin Concent 34.0 32.0-36.0 g/dL Red Cell Distribution Width 14.2 11.8-14.3 % Platelet Count 205 140-450 10^3/uL Mean Platelet Volume 8.9 6.9-10.8 fL Neutrophils (%) (Auto) 74.8 37.0-80.0 % Lymphocytes (%) (Auto) 17.4 10.0-50.0 % Monocytes (%) (Auto) 5.8 0.0-12.0 % Eosinophils (%) (Auto) 1.5 0.0-7.0 % Basophils (%) (Auto) 0.5 0.0-2.0 % Neutrophils # (Auto) 6.3 1.6-8.6 10 ^3/uL Lymphocytes # (Auto) 1.5 0.4-5.4 10 ^3/uL Monocytes # (Auto) 0.5 0-1.3 10 ^3/uL Eosinophils # (Auto) 0.1 0-0.8 10 ^3/uL Basophils # (Auto) 0 0-0.2 10 ^3/uL Nucleated Red Blood Cells 0.0 % Sodium Level 140 136-145 mmol/L Potassium Level 4.0 3.5-5.1 mmol/L Chloride Level 107 98-107 mmol/L Carbon Dioxide Level 23 20-31 mmol/L Anion Gap 10 5-15 Blood Urea Nitrogen 13 9-23 mg/dL Creatinine 0.97 0.550-1.02 mg/dL Glomerular Filtration Rate Calc 65 >90 mL/min BUN/Creatinine Ratio 13.4 10.0-20.0 Serum Glucose 197 H 74-106 mg/dL Calcium Level 9.9 8.7-10.4 mg/dL Total Bilirubin 1.0 0.2-1.0 mg/dL Aspartate Amino Transferase (AST) 15 13-40 U/L Alanine Aminotransferase (ALT) 17 7-40 U/L Alkaline Phosphatase 66 46-116 U/L Total Protein 7.0 5.7-8.2 g/dL Albumin 4.5 3.2-4.8 g/dL Urine Color Yellow Yellow Urine Clarity Turbid H Clear Urine pH 5.5 5.0-9.0 Urine Specific [place] 1.020 1.001-1.035 Urine Protein 1+ H Negative Urine Ketones 1+ H Negative Urine Blood Trace H Negative /uL Urine Nitrite Negative Negative Urine Bilirubin Negative Negative Urine Urobilinogen Normal Negative mg/dL Urine Leukocyte Esterase Negative Negative /uL Urine RBC 3 0 - 4 /hpf Urine Microscopic WBC 1 0-5 /HPF Urine Squamous Epithelial Cells Few <5 /hpf Urine Bacteria None seen None Seen /hpf Urine Mucus Few None Seen Urine Glucose Normal Normal mg/dL Prothrombin Time 10.3 9.3-11.8 sec Prothrombin Time INR 0.97 0.9-1.15 PATIENT: ALPESH MOSQUEDA ACCT: [id number] UNIT: [id number] : 1960 LOC: ER ROOM / BED: / AGE / SEX: 64 / F ADM STATUS: REG ER SERVICE 1142 ORDERING PHYSICIAN: EDELMIRA BOWERS MD PROCEDURE(s): ABPL - CT AB PEL WO CON-NO ORAL OR IV REASON: rght lower quad pain ORDER NUMBER(s): [id number], ACCESSION NUMBER(s): [id number] Exam: CT CT AB PEL WO CON-NO ORAL OR IV History: rght lower quad pain Comparison Study: CT CT AB PEL WO CON-NO ORAL OR IV on DOS: 06/23/24, CT CT AB PEL WO CON-NO ORAL OR IV on DOS: 05/09/24, CT CT AB PEL WO CON-NO ORAL OR IV on DOS: 04/13/24, CT CT AB PEL WO CON-NO ORAL OR IV on DOS: 12/31/23, CT CT AB PEL WO CON-NO ORAL OR IV on DOS: 09/12/23 Technique: Multidetector spiral CT of the abdomen was performed from lung bases to pubic symphysis. Imaging was performed without IV contrast. Axial, coronal and sagittal multiplanar reformats were obtained from the axial data set by the technologist. Radiation Dose : 1. Abdomen/Pelvis: CTDIvol 22.29 mGy, DLP 1248.55 mGy*cm. Findings: Evaluation of solid organs is limited due to lack of intravenous contrast use. Lung Bases: No acute or significant lung base finding. Normal heart size. No pleural or pericardial effusion. Liver: The liver is normal in size. No focal lesions. Gallbladder and Biliary Tree: Unremarkable Spleen: Unremarkable Pancreas: The pancreas is grossly normal in appearance. Adrenal Glands: Unremarkable Kidneys: Multiple right-sided stones are seen including a 1.2 cm stone in the renal pelvis. Mild right-sided hydronephrosis. Unremarkable left kidney. Bladder: Grossly unremarkable for degree of distention. Bowel: The stomach is grossly normal in appearance. Small bowel and colon are normal in caliber and distribution. The appendix is not visualized; however, no secondary findings of acute appendicitis identified. Ascites: Absent Lymphadenopathy: No mesenteric, retroperitoneal or periportal lymphadenopathy. Abdominal Wall and Mesentery: Unremarkable. Vasculature: The visualized abdominal aorta is normal in size and caliber. Evaluation of abdominal and pelvic vessels is limited due to lack of intravenous contrast. Pelvic Organs: Unremarkable Musculoskeletal: No aggressive focal bony lesions, acute fractures or dislocation. Severe degenerative arthrosis of the right hip with [id number] apposition. IMPRESSION: 1. Multiple right-sided stones are seen including a 1.2 cm stone in the renal pelvis. Mild right-sided hydronephrosis. 2. Severe degenerative arthrosis of the right hip with [id number] apposition Radiation optimization: All CT scans at this facility use at least one of these dose optimization techniques: automated exposure control mA and/or kV adjustment per patient size (includes targeted exams where dose is matched to clinical indication) or iterative reconstruction. ATED BY: MARY ELLEN WAN MD DICTATED DATE/TIME: 01/01/251218 SIGNED BY: MARY ELLEN WAN MD SIGNED DATE/TIME: 01/01/251218 CC: Assessment Right renal stones, largest 1.2 cm Right flank/abdominal pain Plan/Recommendation Right ureteroscopic laser lithotripsy with CVAC Plan discussed with: Patient, Other TANVI PERDOMO MD January 02, 2025 20:31
[2025-01-03] VITALS (8 sets, daily range): BP systolic 108–145; BP diastolic 66–83; PULSE 68–108; RESP 16–19; TEMP 97.6–98; O2SAT 96–100
[2025-01-03 06:58] LABS: Basophils # (auto) 0.1 10 ^3/uL (0-0.2); Basophils % (auto) 0.6 % (0.0-2.0); Eosinophils # (auto) 0.2 10 ^3/uL (0-0.8); Eosinophils % (auto) 2.6 % (0.0-7.0); Hematocrit 39.1 % (36.0-46.0); Hemoglobin 13.4 g/dL (12.2-16.2); Lymphocytes # (auto) 2.7 10 ^3/uL (0.4-5.4); Lymphocytes % (auto) 30.8 % (10.0-50.0); Mean Corpuscular Hemoglobin 30.2 pg (28.0-32.0); Mean Corpuscular Hgb Conc. 34.3 g/dL (32.0-36.0); Mean Corpuscular Volume 88.2 fL (80.0-100.0); Monocytes # (auto) 0.6 10 ^3/uL (0-1.3); Monocytes % (auto) 7.2 % (0.0-12.0); Neutrophils # (auto) 5.1 10 ^3/uL (1.6-8.6); Neutrophils % (auto) 58.8 % (37.0-80.0); Platelet Count (auto) 226 10^3/uL (140-450); Red Blood Cells 4.44 10^6/uL (4.0-5.20); Red Cell Distribution Width 14.6 % (11.8-14.3); White Blood Cell 8.6 10^3/uL (4.4-10.8)
[2025-01-03 07:06] LABS: Alanine Aminotransferase 18 U/L (7-40); Albumin 4.6 g/dL (3.2-4.8); Alkaline Phosphatase 70 U/L (46-116); Anion Gap 12 (5-15); Aspartate Aminotransferase 16 U/L (13-40); BUN/Creatinine Ratio 12.6 (10.0-20.0); Blood Urea Nitrogen 12 mg/dL (9-23); Calcium 9.9 mg/dL (8.7-10.4); Carbon Dioxide 23 mmol/L (20-31); Chloride 104 mmol/L (98-107); Potassium 3.6 mmol/L (3.5-5.1); Sodium 139 mmol/L (136-145); Total Protein 7.2 g/dL (5.7-8.2)
[2025-01-03 07:07] LABS: Bilirubin, Total 1.1 mg/dL (0.2-1.0); Glucose 195 mg/dL (74-106)
[2025-01-03] MEDS: INSULIN ASPART PROTAMINE SC SCH (10:00)
[2025-01-03] MEDS: [UNRECOGNIZED DRUG - OTHER] SC SCH (10:00)
[2025-01-03] MEDS: HYDROcodone-ACET 7.5/325MG TAB PO SCH (10:00)
[2025-01-03] MEDS ORDERED: IOHEXOL 300 MG/ML 100ML BOTTLE IJ ONE (13:00)
--- NOTE | 2025-01-03 13:22 | ECG ---
[facility] Test Date: 2025-01-03 Test Time: 13:08:25 Pat Name: ALPESH MOSQUEDA Department: Room: [facility] B Gender: F Technician Preventative Medicine: reece : 1960 Requested By: TANVI PERDOMO Order Number: [id number] Reading MD: Artis Peterson Measurements Intervals [place] Rate: 77 P: 30 MT: 156 QRS: -35 QRSD: 89 T: -18 QT: 426 QTc: 483 Interpretive Statements Sinus rhythm Inferior infarct, old Baseline wander in lead(s) II,aVR,V2 Electronically Signed On 01-08-2025 22:47:16 PDT by Artis Peterson Please click the below link to view image of tracing.
[2025-01-03] MEDS ORDERED: HYDROmorphone HCL 2 MG/ML VL/or syr ONE (14:06)
[2025-01-03] MEDS ORDERED: ROCURONIUM 10MG/ML 10ML VIAL IV ONE (14:06)
[2025-01-03] MEDS ORDERED: DexAMETHasone SOD PHOS 10MG/1ML VIAL INJ ONE (14:06)
[2025-01-03] MEDS ORDERED: PHENYLEPHRINE HCL 10 MG/ML VL ONE (14:06)
[2025-01-03] MEDS ORDERED: PROPOFOL 10 MG/ML 20 ML IV ONE (14:06)
[2025-01-03] MEDS ORDERED: KETOROLAC TROMETH 30 MG/ML 1ML VIAL ONE (14:06)
[2025-01-03] MEDS ORDERED: GLYCOPYRROLATE 0.2 MG/ML 1ML VIAL ONE (14:06)
[2025-01-03] MEDS ORDERED: ePHEDrine SULFATE 50 MG/ML AMP ONE (14:06)
[2025-01-03] MEDS ORDERED: MIDAZOLAM HCL 2MG/2ML 2ml VIAL (1mg/ml) ONE (14:06)
[2025-01-03] MEDS ORDERED: LIDOCAINE 2% (LOCAL ANESTH.) PF 5ml SDV ONE (14:06)
[2025-01-03] MEDS ORDERED: fentaNYL CITRATE 100 MCG/2 ML VL ONE (14:06)
[2025-01-03] MEDS ORDERED: SUGAMMADEX 200mg/2ml Vial (100MG/ML) IV ONE (15:13)
--- NOTE | 2025-01-03 15:50 | DVHNC2 ---
Procedure - OPERATIVE REPORT Pre-op. Diagnosis: Kidney Stone - Right- multiple stones including 1.2 cm stone Right flank pain Post-op. Diagnosis: Same as pre-op diagnosis Operation: Right ureteroscopy/pyeloscopy, laser lithotripsy with CVAC system Cystoscopy with right ureteral stent placement Anesthesia: General Indications: Patient with large 1.2 cm right renal pelvic stone and multiple small stones. The indications, risks, complications, alternatives and benefits were discussed. All questions were encouraged and answered. Patient is aware of risks/complications including but not limited to infection, bleeding, persistent pain, possible ureteral injury/ureteral stricture requiring additional surgical management, urethral injury, urethral stricture and meatal stenosis. Details of Procedure: After obtaining the consent, patient was taken to OR suite and underwent general anesthesia. Preop antibiotic was given. Timeout was performed and deemed to be correct. With the patient positioned in the lithotomy, the area of the genitalia prepped and draped in usual sterile fashion. 22 F Cystoscope was used to access the urethra and bladder. A sensor tip guide wire was advanced through the scope into the right ureter all the way to the right collecting system under fluoroscopic control. I advanced 12/14 Fr 28 cm access sheet over the working wire all the way to the proximal ureter under fluoroscopy control, then the inner sheet and the working wire was removed. The CVAC flexible ureteroscope was advanced through the access sheet. The stones were visualized. Now using a 200 micron laser fiber the stone was blasted into small fragments and suctioned out while in popcorn mode. Ureteroscope was then removed and guidewire placed. Ureteral sheath was then removed. At this point the cystoscope was advanced over the wire into the bladder. Now a 5 Fr x [address] ureteral stent was advanced under direct visualization through the right ureteral orifice into the kidney. Good proximal curl was seen in the renal pelvis under fluoroscopy and the distal curl was seen in the bladder once the wire was removed. Anesthesia was reversed, patient was extubated and transferred awake and in stable conditions to recovery room. Specimens: renal stone fragments Complications: None Findings: Notes: 5 Fr x [address] ureteral stent - Right TANVI PERDOMO MD January 03, 2025 15:50
--- NOTE | 2025-01-03 16:09 | DVHPNRES ---
Progress Note Date Seen: January 03, 2025 Resident Creating Document: RADHA REICH RESIDENT Has the PT tested + for MRSA If YES, has PT been informed?: No Medical Necessity Reason Pt with a Central, PICC or Fol: No Medical Necessity Reason 01/02 Patient is a 64-year-old female past medical history of kidney stones with multiple lithotripsies; UTI, DM and hyperlipidemia presents to the ED with a main complaint right sided back pain with radiation to the groin. Pain is also associated with urination as well. She denied any fever chills cough or shortness of breaths. CT abdomen revealed Multiple right-sided stones are seen including a 1.2 cm stone in the renal pelvis. Mild right-sided hydronephrosis. 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 Her last lithotripsy was June 2024. 01/03 Seen and examined this morning. She was lying in bed not in much distress. She was also seen by the Urology and scheduled for lithotripsy this today. Patient is currently in the OR for lithotripsy. We will continue to follow her and see how she does postop and plan for discharge. Subjective Review of Systems Constitutional: Denies fever no chills no feeling of malaise HEENT: Denies headache, ear pain, ear discharges, conjunctivitis, nasal discharge throat pain Cardiovascular: Denies chest pain, palpitation, orthopnea, PND, or pedal edema Respiratory: Denies shortness of breath, cough cough, sputum production, hemoptysis, GI: Denies abdominal pain, nausea, vomiting, diarrhea, hematemesis, hematochezia, : Denies frequency, urgency, hematuria, Endocrine: Denies unintentional weight gain or weight loss, feeling of hot flashes, Claudio: Denies easy bruising, bleeding disorders, epistaxis Musculoskeletal: Denies joint pains, muscle aches Psych: No evidence of depression, melissa, suicidal ideation Objective vital signs Vital Sign Date Time Temp Pulse Resp B/P (MAP) Pulse Ox O2 Delivery O2 Flow Rate FiO2 01/03/25 13:12 97.9 68 16 108/69 (82) 96 97.9 01/03/25 08:00 Room Air* 0 21 Total Intake and Output 01/02/25 01/02/25 01/03/25 15:00 23:00 07:00 Intake Total 50 ml 450 ml Output Total 500 ml Balance 50 ml 450 ml -500 ml medications Current Medications Medications Dose Ordered Sig/Konstantin Route Start Time Stop Time Status Last Admin Dose Admin Ceftriaxone Sodium 50 ml @ 100 mls/hr DAILY IV 01/02/25 10:00 01/03/25 15:10 Sodium Chloride 10 ml Q8HR IV 01/01/25 22:00 01/03/25 06:13 10 ML Docusate Sodium 100 mg BIDPRN PRN PO 01/01/25 17:00 Acetaminophen 650 mg Q6HP PRN PO 01/01/25 17:00 Acetaminophen/ Hydrocodone Bitart 1 tab Q4HP PRN PO 01/01/25 17:00 01/03/25 00:07 1 TAB Hydromorphone HCl 0.5 mg Q4HP PRN IV 01/01/25 17:00 Ondansetron HCl 4 mg Q4HP PRN IV 01/01/25 17:00 01/01/25 20:29 4 MG Allopurinol 100 mg DAILY PO 01/02/25 10:00 01/02/25 14:39 100 MG Patient Own Medication 25 mg QPM PO 01/01/25 18:00 Tamsulosin HCl 0.4 mg DAILY PO 01/01/25 17:15 01/02/25 14:38 0.4 MG Diagnostic Test (Pha) 1 strip ACHS 01/01/25 22:00 01/03/25 11:20 1 STRIP Insulin Human Regular ACHS SC 01/01/25 22:00 01/03/25 06:52 3 UNITS Dextrose 50 ml UD PRN IV 01/01/25 19:45 Patient Own Medication 650 mg TID PO 01/02/25 14:00 UNV Acetaminophen/ Hydrocodone Bitart 1 tab DAILY PO 01/03/25 10:00 Patient Own Medication 1 inj DAILY SC 01/03/25 10:00 Examination General Appearance: Alert, Oriented X3, Cooperative, No acute distress lying in bed HEENT: Atraumatic, PERRLA, EOMI, Mucous membrane moist/pink Respiratory: Clear to auscultation, Normal air movement Cardiovascular: Regular rate, Normal S1, Normal S2, No murmurs, no chest wall tenderness Abdominal: Enlarged abdomen; mild tenderness right flank, bowel sounds present, no scars noted Extremities: No clubbing, No cyanosis, No edema, Normal pulses, No tenderness/swelling Skin: No rashes, No breakdown, No significant lesion Neuro: Normal gait, Normal speech, Strength at 5/5 X4 ext, Normal tone, Sensation intact, Cranial nerves 3-12 NL, Reflexes 2+ Psych/Mental Status: Mental status NL, Mood NL laboratory and microbiology Laboratory Tests 01/03/25 05:46 Test 01/03/25 05:46 Range/Units Serum Glucose 195 H 74-106 mg/dL Problem List/Assessment/Plan Problem List/Assessment/Plan Assessment Nephrolithiasis measuring 1.2 cm with hydronephrosis Hydronephrosis Diabetes mellitus type 2 MALINDA due to VMN CKD 2 Anxiety Depression History of gout Hyperlipidemia History of UTI. Obesity grade 2, BMI 38.9 OR pending Lithotripsy Plan Pain management with [place]/Toradol Tamsulosin IV hydration Continue home mediations Goal of care discussed for 20 minutes. full code case and plan discussed with DR. Garnica Plan discussed with: Patient Date of Service: January 03, 2025 Billing Provider: IVANIA GARNICA MD Common Visit Codes: [id number] INP/OBS CARE(HIGH) RADHA REICH RESIDENT January 03, 2025 16:09 IVANIA GARNICA MD January 03, 2025 19:08
[2025-01-03] MEDS ORDERED: HYDROmorphone HCL 2 MG/ML VL/or syr IV PRN (16:15)
[2025-01-03] MEDS: ACCU-CHEK COMFORT CURVE STRIP VI ONE (16:15)
--- NOTE | 2025-01-03 17:33 | DVH ---
C-ARM FLUOROSCOPY: PROCEDURE: Right renal lithotripsy and stent placement FLUOROSCOPY TIME: 29.6 seconds DAP: 11.58 mGy mgy FINDINGS: Spot intraoperative C arm radiographs demonstrating right renal lithotripsy and stent placement. IMPRESSION: 1. Please refer to surgical report for detailed findings.
--- NOTE | 2025-01-03 18:55 | DVH ---
C-ARM FLUOROSCOPY: PROCEDURE: Right kidney lithotripsy and stent placement FLUOROSCOPY TIME: 29.6 seconds DAP: 11.6 mgy FINDINGS: Spot intraoperative C arm radiographs demonstrating lithotripsy and stent placement. IMPRESSION: Please refer to surgical report for detailed findings.
[2025-01-04 05:00] VITALS: BP 131/66; PULSE 87; RESP 19; TEMP 98.1; O2SAT 96
[2025-01-04 07:12] LABS: Basophils # (auto) 0 10 ^3/uL (0-0.2); Basophils % (auto) 0.1 % (0.0-2.0); Eosinophils # (auto) 0 10 ^3/uL (0-0.8); Hematocrit 36.8 % (36.0-46.0); Hemoglobin 12.4 g/dL (12.2-16.2); Lymphocytes # (auto) 0.9 10 ^3/uL (0.4-5.4); Lymphocytes % (auto) 12.8 % (10.0-50.0); Mean Corpuscular Hemoglobin 29.7 pg (28.0-32.0); Mean Corpuscular Hgb Conc. 33.6 g/dL (32.0-36.0); Mean Corpuscular Volume 88.3 fL (80.0-100.0); Monocytes # (auto) 0.2 10 ^3/uL (0-1.3); Monocytes % (auto) 2.4 % (0.0-12.0); Neutrophils # (auto) 5.8 10 ^3/uL (1.6-8.6); Neutrophils % (auto) 84.7 % (37.0-80.0); Platelet Count (auto) 207 10^3/uL (140-450); Red Blood Cells 4.17 10^6/uL (4.0-5.20); Red Cell Distribution Width 14.5 % (11.8-14.3); White Blood Cell 6.9 10^3/uL (4.4-10.8)
[2025-01-04 07:23] LABS: Alanine Aminotransferase 17 U/L (7-40); Alkaline Phosphatase 64 U/L (46-116); Anion Gap 9 (5-15); BUN/Creatinine Ratio 14.4 (10.0-20.0); Blood Urea Nitrogen 16 mg/dL (9-23); Calcium 9.4 mg/dL (8.7-10.4); Carbon Dioxide 25 mmol/L (20-31); Chloride 106 mmol/L (98-107); Potassium 4.6 mmol/L (3.5-5.1); Sodium 140 mmol/L (136-145); Total Protein 6.4 g/dL (5.7-8.2)
[2025-01-04 07:24] LABS: Albumin 4.2 g/dL (3.2-4.8); Aspartate Aminotransferase 14 U/L (13-40)
[2025-01-04 07:25] LABS: Bilirubin, Total 0.5 mg/dL (0.2-1.0)
[2025-01-04 07:29] LABS: Glucose 295 mg/dL (74-106)
[2025-01-04 08:44] VITALS: BP 136/68; PULSE 90; RESP 17; TEMP 98; O2SAT 96
[2025-01-04] MEDS: ONDANSETRON HCL 4 MG/2 ML VIAL IV ONE (11:10)
[2025-01-04 13:19] VITALS: BP 115/60; PULSE 62; RESP 18; TEMP 98.6; O2SAT 98
[2025-01-04] MEDS: SODIUM CHLORIDE 0.9% 1,000 ML IV SCH (14:51)
[2025-01-04 17:09] VITALS: BP 130/69; PULSE 80; RESP 17; TEMP 98; O2SAT 92
--- NOTE | 2025-01-04 17:31 | DVH ---
INDICATION: RIGHT GROIN PAIN TECHNIQUE: Multiple real-time sonographic images of the kidneys and bladder were obtained. COMPARISON: US KIDNEY on DOS: 12/31/23 FINDINGS: The right kidney measures 13.3 cm in length, which is normal in size. There is normal echog enicity of the right kidney. No hydronephrosis. There are 3 small echogenic foci right kidney without hydronephrosis. Largest measures 1.7 x 0.8 x 1.5 cm. The left kidney measures 10.3 cm in length, which is normal in size. There is normal echogenicity of the left kidney. No hydronephrosis. Small echogenic nonobstructing foci No large intraluminal masses are seen in the bladder. Romero catheter in the bladder in the bladder is empty IMPRESSION: 1. 11.3 cm long right kidney. 10.3 cm long left kidney. 2. Multiple bilateral nonobstructing echogenic foci consistent with small calculi. The largest is on the right and measures 1.7 x 1.5 cm.
--- NOTE | 2025-01-04 17:56 | DVHPNRES ---
Progress Note Date Seen: January 04, 2025 Resident Creating Document: RADHA REICH RESIDENT Has the PT tested + for MRSA If YES, has PT been informed?: No Medical Necessity Reason Pt with a Central, PICC or Fol: No Medical Necessity Reason 01/04: Patient is currently status post Right ureteroscopy/pyeloscopy, laser lithotripsy with CVAC system and Cystoscopy with right ureteral stent placement yesterday. She is resting in bed and drainage is clear. However, this afternoon patient begun to complain of right groin pain similar to what she had presented with and she does not full ready to go home. A repeat renal US showed multiple bilateral nonobstructing echogenic foci consistent with small calculi. The largest is on the right and measures 1.7 x 1.5 cm. We will have Urology take a look at the patient 1 more time. we can discharge tomorrow. Subjective Review of Systems Constitutional: Denies fever no chills no feeling of malaise HEENT: Denies headache, ear pain, ear discharges, conjunctivitis, nasal discharge throat pain Cardiovascular: Denies chest pain, palpitation, orthopnea, PND, or pedal edema Respiratory: Denies shortness of breath, cough cough, sputum production, hemoptysis, GI: Denies abdominal pain, nausea, vomiting, diarrhea, hematemesis, hematochezia, : Denies frequency, urgency, hematuria, right groin pain Endocrine: Denies unintentional weight gain or weight loss, feeling of hot flashes, Claudio: Denies easy bruising, bleeding disorders, epistaxis Musculoskeletal: Denies joint pains, muscle aches Psych: No evidence of depression, melissa, suicidal ideation Objective vital signs Vital Sign Date Time Temp Pulse Resp B/P (MAP) Pulse Ox O2 Delivery O2 Flow Rate FiO2 01/04/25 17:09 98.0 80 17 130/69 (89) 92 98.0 01/04/25 08:00 Room Air* 0 21 Total Intake and Output 01/03/25 01/03/25 01/04/25 15:00 23:00 07:00 Intake Total 100 ml 50 ml 600 ml Output Total 450 ml Balance 100 ml 50 ml 150 ml medications Current Medications Medications Dose Ordered Sig/Konstantin Route Start Time Stop Time Status Last Admin Dose Admin Ceftriaxone Sodium 50 ml @ 100 mls/hr DAILY IV 01/02/25 10:00 01/04/25 09:03 100 MLS/HR Sodium Chloride 10 ml Q8HR IV 01/01/25 22:00 01/04/25 14:03 10 ML Docusate Sodium 100 mg BIDPRN PRN PO 01/01/25 17:00 Acetaminophen 650 mg Q6HP PRN PO 01/01/25 17:00 Acetaminophen/ Hydrocodone Bitart 1 tab Q4HP PRN PO 01/01/25 17:00 01/04/25 14:50 1 TAB Hydromorphone HCl 0.5 mg Q4HP PRN IV 01/01/25 17:00 Ondansetron HCl 4 mg Q4HP PRN IV 01/01/25 17:00 01/04/25 14:50 4 MG Allopurinol 100 mg DAILY PO 01/02/25 10:00 01/04/25 09:03 100 MG Tamsulosin HCl 0.4 mg DAILY PO 01/01/25 17:15 01/04/25 09:02 0.4 MG Diagnostic Test (Pha) 1 strip ACHS 01/01/25 22:00 01/04/25 12:01 1 STRIP Insulin Human Regular ACHS SC 01/01/25 22:00 01/04/25 12:04 6 UNITS Dextrose 50 ml UD PRN IV 01/01/25 19:45 Patient Own Medication 650 mg TID PO 01/02/25 14:00 UNV Acetaminophen/ Hydrocodone Bitart 1 tab DAILY PO 01/03/25 10:00 01/04/25 09:03 1 TAB Patient Own Medication 100 mg QPM PO 01/04/25 18:00 Sodium Chloride 1,000 ml @ 125 mls/hr Q8H IV 01/04/25 14:45 01/04/25 14:51 125 MLS/HR Examination General Appearance: Alert, Oriented X3, Cooperative, No acute distress HEENT: Atraumatic, PERRLA, EOMI, Mucous membrane moist/pink Respiratory: Clear to auscultation, Normal air movement Cardiovascular: Regular rate, Normal S1, Normal S2, No murmurs, no chest wall tenderness Abdominal: NO distention, right groin tenderness, bowel sounds present, no scars noted Extremities: No clubbing, No cyanosis, No edema, Normal pulses, No tenderness/swelling Skin: No rashes, No breakdown, No significant lesion Neuro: Normal gait, Normal speech, Strength at 5/5 X4 ext, Normal tone, Sensation intact, Cranial nerves 3-12 NL, Reflexes 2+ Psych/Mental Status: Mental status NL, Mood NL laboratory and microbiology Laboratory Tests 01/04/25 05:49 Test 01/04/25 05:49 Range/Units Serum Glucose 295 H 74-106 mg/dL Problem List/Assessment/Plan Problem List/Assessment/Plan Assessment Nephrolithiasis measuring 1.2 cm with hydronephrosis Hydronephrosis Diabetes mellitus type 2 MALINDA due to VMN CKD 2 Anxiety Depression History of gout Hyperlipidemia History of UTI. Obesity grade 2, BMI 40.1 s/p Right ureteroscopy/pyeloscopy, laser lithotripsy with CVAC system and Cystoscopy with right ureteral stent placement Plan Pain management with [place]/Toradol Tamsulosin IV hydration Continue home mediations Goal of care discussed for 20 minutes. full code case and plan discussed with DR. Garnica Plan discussed with: Patient My Orders My Orders Orders - RADHA REICH Procedure Category Date Status Time Sodium Chloride 0.9% PHA 01/04/25 In Process 14:45 Kidney US 01/04/25 Resulted 16:28 Date of Service: January 04, 2025 Billing Provider: IVANIA GARNICA MD Common Visit Codes: [id number] INP/OBS CARE(HIGH) RADHA REICH January 04, 2025 17:56 IVANIA GARNICA MD January 04, 2025 18:08
[2025-01-04] MEDS ORDERED: DEXTROSE (50%) 50ML SYRG IV PRN (18:00)
[2025-01-04] MEDS: ACCU-CHEK COMFORT CURVE STRIP VI SCH (18:02)
[2025-01-04] MEDS: InsuLIN REG 1unit/0.01ml Soln (100units/ml) SC SCH ×2 (18:11→21:55)
[2025-01-04] MEDS: Sitagliptin Phosphate (Januvia) 100 MG TABLETS PO SCH (18:20)
[2025-01-04 20:00] VITALS: PULSE 73; RESP 17; O2SAT 97
[2025-01-04 21:00] VITALS: BP 127/77; PULSE 73; RESP 16; TEMP 98.2; O2SAT 97
[2025-01-05 01:00] VITALS: BP 132/67; PULSE 62; RESP 16; TEMP 98.3; O2SAT 97
[2025-01-05 05:00] VITALS: BP 128/58; PULSE 80; RESP 16; TEMP 98.2; O2SAT 97
[2025-01-05 07:31] LABS: Basophils # (auto) 0 10 ^3/uL (0-0.2); Basophils % (auto) 0.3 % (0.0-2.0); Eosinophils # (auto) 0.1 10 ^3/uL (0-0.8); Eosinophils % (auto) 1.3 % (0.0-7.0); Hemoglobin 11.7 g/dL (12.2-16.2); Mean Corpuscular Hemoglobin 29.9 pg (28.0-32.0); Mean Corpuscular Hgb Conc. 33.6 g/dL (32.0-36.0); Mean Corpuscular Volume 88.9 fL (80.0-100.0); Monocytes # (auto) 0.6 10 ^3/uL (0-1.3); Monocytes % (auto) 6.5 % (0.0-12.0); Neutrophils # (auto) 6.2 10 ^3/uL (1.6-8.6); Neutrophils % (auto) 69.9 % (37.0-80.0); Platelet Count (auto) 189 10^3/uL (140-450); Red Blood Cells 3.93 10^6/uL (4.0-5.20); Red Cell Distribution Width 14.8 % (11.8-14.3); White Blood Cell 8.9 10^3/uL (4.4-10.8)
[2025-01-05 07:55] LABS: Alanine Aminotransferase 15 U/L (7-40); Albumin 3.9 g/dL (3.2-4.8); Alkaline Phosphatase 58 U/L (46-116); Anion Gap 8 (5-15); BUN/Creatinine Ratio 17.5 (10.0-20.0); Blood Urea Nitrogen 18 mg/dL (9-23); Calcium 9.2 mg/dL (8.7-10.4); Carbon Dioxide 25 mmol/L (20-31); Sodium 142 mmol/L (136-145); Total Protein 6.1 g/dL (5.7-8.2)
[2025-01-05 07:56] LABS: Aspartate Aminotransferase 12 U/L (13-40); Bilirubin, Total 0.6 mg/dL (0.2-1.0); Chloride 109 mmol/L (98-107); Glucose 200 mg/dL (74-106)
[2025-01-05 09:00] VITALS: BP 139/76; PULSE 75; RESP 17; TEMP 98; O2SAT 96
--- NOTE | 2025-01-05 09:19 | DVHPN2 ---
Progress Note - Dictate Date Seen: January 05, 2025 Has the PT tested + for MRSA If YES, has PT been informed?: No Medical Necessity Reason Pt with a Central, PICC or Fol: Yes The following are medically ne: Major Catheter Medical Necessity Reason POD#2 s/p right URSLL with CVAC and right ureteral stent placement vital signs Vital Sign Date Time Temp Pulse Resp B/P (MAP) Pulse Ox O2 Delivery O2 Flow Rate FiO2 01/05/25 05:00 98.2 80 16 128/58 (81) 97 98.2 01/04/25 20:00 Room Air* 0 21 Total Intake and Output 01/04/25 01/04/25 01/05/25 15:00 23:00 07:00 Intake Total 50 ml 1900 ml 1300 ml Output Total 400 ml 500 ml Balance 50 ml 1500 ml 800 ml medications Current Medications Medications Dose Ordered Sig/Konstantin Route Start Time Stop Time Status Last Admin Dose Admin Ceftriaxone Sodium 50 ml @ 100 mls/hr DAILY IV 01/02/25 10:00 01/04/25 09:03 100 MLS/HR Sodium Chloride 10 ml Q8HR IV 01/01/25 22:00 01/05/25 05:51 10 ML Docusate Sodium 100 mg BIDPRN PRN PO 01/01/25 17:00 Acetaminophen 650 mg Q6HP PRN PO 01/01/25 17:00 Acetaminophen/ Hydrocodone Bitart 1 tab Q4HP PRN PO 01/01/25 17:00 01/04/25 14:50 1 TAB Hydromorphone HCl 0.5 mg Q4HP PRN IV 01/01/25 17:00 Ondansetron HCl 4 mg Q4HP PRN IV 01/01/25 17:00 01/04/25 14:50 4 MG Allopurinol 100 mg DAILY PO 01/02/25 10:00 01/04/25 09:03 100 MG Tamsulosin HCl 0.4 mg DAILY PO 01/01/25 17:15 01/04/25 09:02 0.4 MG Patient Own Medication 650 mg TID PO 01/02/25 14:00 UNV Acetaminophen/ Hydrocodone Bitart 1 tab DAILY PO 01/03/25 10:00 01/04/25 09:03 1 TAB Patient Own Medication 100 mg QPM PO 01/04/25 18:00 01/04/25 18:20 100 MG Sodium Chloride 1,000 ml @ 125 mls/hr Q8H IV 01/04/25 14:45 01/05/25 06:11 125 MLS/HR Diagnostic Test (Pha) 1 strip ACHS 01/04/25 17:59 01/05/25 06:11 1 STRIP Insulin Human Regular HS SC 01/04/25 22:00 01/04/25 21:55 4 UNITS Insulin Human Regular AC SC 01/04/25 17:59 01/05/25 06:14 3 UNITS Dextrose 50 ml UD PRN IV 01/04/25 18:00 Enoxaparin Sodium 40 mg DAILY SC 01/06/25 10:00 objective Urine clear in the major renal US: shows persistent stones. laboratory and microbiology Laboratory Tests 01/05/25 06:16 Test 01/05/25 06:16 Range/Units Serum Glucose 200 H 74-106 mg/dL Problem List Right ureteral stent Right renal stones, residual Assessment/Plan D/C Major CT Scan abd/pelvis NC Plan for outpatient lithotripsy for residual stones with stent removal Plan discussed with: Patient, Other TANVI PERDOMO MD January 05, 2025 09:19
[2025-01-05] MEDS: ENOXAPARIN SOD 40 MG/0.4 ML SYRINGE SC ONE (09:23)
--- NOTE | 2025-01-05 10:20 | DVH ---
CT CT AB PEL WO CON-NO ORAL OR IV INDICATION: stones EXAM DATE: 01/05/2025 09:35 AM COMPARISON: CT CT AB PEL WO CON-NO ORAL OR IV on DOS: 01/01/25, CT CT AB PEL WO CON-NO ORAL OR IV on D OS: 06/23/24, CT CT AB PEL WO CON-NO ORAL OR IV on DOS: 05/09/24 RADIATION DOSE: CTDIvol: 27.06 mGy, DLP: 1447.3 mGy*cm PROCEDURE: Helical CT images were obtained of the abdomen and pelvis without IV contrast Sagittal and coronal reconstructions are provided. ORAL CONTRAST: None. ADDITIONAL IMAGES / REFORMATS: None All C T scans at this medical facility are performed using dose modulation techniques as appropriate to a p erformed exam including the following: Automated exposure control was utilized; adjustment of the MA and/or KV according to patient size; and use of iterative reconstruction technique. FINDINGS: LUNG BASE: Normal. LIVER: Hepatic steatosis. GALLBLADDER AND BILIARY TREE: No calcified gallstones. Normal caliber wall. No intra- or extrahepatic biliary ductal dilation. PANCREAS: Normal. SPLEEN: Normal. BOWEL: Severe colonic diverticulosis. Normal appendix. ADRENALS: Normal. KIDNEYS AND URETER: Right ureteral stent with interval removal of right kidney stones, some small non obstructive stones remain. Punctate left kidney stone. BLADDER: Normal. REPRODUCTIVE ORGANS: Normal. LYMPH NODES:No lymphadenopathy. PERITONEUM: No ascites or free air. No other fluid collection. VESSELS: Scattered atherosclerotic calcifications are noted. RETROPERITONEUM: Normal. ABDOMINAL WALL: Coarse calcification in the right posterior back. BONES: Scattered osseous degenerative changes are noted. Severe right hip degenerative changes. IMPRESSION: Right ureteral stent with interval removal of right kidney stones, some small nonobstructive stones r emain. Severe colonic diverticulosis.
--- NOTE | 2025-01-05 12:21 | DVHDSRES ---
Discharge Summary Date of Admission Resident Creating Document: RADHA REICH RESIDENT January 01, 2025 at 17:00 Date of Discharge: January 05, 2025 Admitting Diagnosis Right flank pain Labs/Diagnostic Data: PATIENT: ALPESH MOSQUEDA ACCT: [id number] UNIT: [id number] : 1960 LOC: [facility] ROOM / BED: [facility] / B AGE / SEX: 64 / F ADM STATUS: ADM IN SERVICE 0914 ORDERING PHYSICIAN: TANVI PERDOMO MD PROCEDURE(s): ABPL - CT AB PEL WO CON-NO ORAL OR IV REASON: stones ORDER NUMBER(s): [id number], ACCESSION NUMBER(s): [id number] CT CT AB PEL WO CON-NO ORAL OR IV INDICATION: stones EXAM DATE: 01/05/2025 09:35 AM COMPARISON: CT CT AB PEL WO CON-NO ORAL OR IV on DOS: 01/01/25, CT CT AB PEL WO CON-NO ORAL OR IV on DOS: 06/23/24, CT CT AB PEL WO CON-NO ORAL OR IV on DOS: 05/09/24 RADIATION DOSE: CTDIvol: 27.06 mGy, DLP: 1447.3 mGy*cm PROCEDURE: Helical CT images were obtained of the abdomen and pelvis without IV contrast Sagittal and coronal reconstructions are provided. ORAL CONTRAST: None. ADDITIONAL IMAGES / REFORMATS: None All CT scans at this medical facility are performed using dose modulation techniques as appropriate to a performed exam including the following: Automated exposure control was utilized; adjustment of the MA and/or KV according to patient size; and use of iterative reconstruction technique. FINDINGS: LUNG BASE: Normal. LIVER: Hepatic steatosis. GALLBLADDER AND BILIARY TREE: No calcified gallstones. Normal caliber wall. No intra- or extrahepatic biliary ductal dilation. PANCREAS: Normal. SPLEEN: Normal. BOWEL: Severe colonic diverticulosis. Normal appendix. ADRENALS: Normal. KIDNEYS AND URETER: Right ureteral stent with interval removal of right kidney stones, some small nonobstructive stones remain. Punctate left kidney stone. BLADDER: Normal. REPRODUCTIVE ORGANS: Normal. LYMPH NODES:No lymphadenopathy. PERITONEUM: No ascites or free air. No other fluid collection. VESSELS: Scattered atherosclerotic calcifications are noted. RETROPERITONEUM: Normal. ABDOMINAL WALL: Coarse calcification in the right posterior back. BONES: Scattered osseous degenerative changes are noted. Severe right hip degenerative changes. IMPRESSION: Right ureteral stent with interval removal of right kidney stones, some small nonobstructive stones remain. Severe colonic diverticulosis. ATED BY: LOWELL GRADY MD DICTATED DATE/TIME: 01/05/25 1018 PATIENT: ALPESH MOSQUEDA ACCT: [id number] UNIT: [id number] : 1960 LOC: [facility] ROOM / BED: [address] [place] [address] AGE / SEX: 64 / F ADM STATUS: ADM IN SERVICE 1628 ORDERING PHYSICIAN: RADHA REICH PROCEDURE(s): KIDUS - KIDNEY REASON: RIGHT GROIN PAIN ORDER NUMBER(s): [id number], ACCESSION NUMBER(s): [id number] INDICATION: RIGHT GROIN PAIN TECHNIQUE: Multiple real-time sonographic images of the kidneys and bladder were obtained. COMPARISON: US KIDNEY on DOS: 12/31/23 FINDINGS: The right kidney measures 13.3 cm in length, which is normal in size. There is normal echogenicity of the right kidney. No hydronephrosis. There are 3 small echogenic foci right kidney without hydronephrosis. Largest measures 1.7 x 0.8 x 1.5 cm. The left kidney measures 10.3 cm in length, which is normal in size. There is normal echogenicity of the left kidney. No hydronephrosis. Small echogenic nonobstructing foci No large intraluminal masses are seen in the bladder. Romero catheter in the bladder in the bladder is empty IMPRESSION: 1. 11.3 cm long right kidney. 10.3 cm long left kidney. 2. Multiple bilateral nonobstructing echogenic foci consistent with small calculi. The largest is on the right and measures 1.7 x 1.5 cm. ATED BY: REGI GALEAS Jr., DO DICTATED DATE/TIME: 01/04/25 1728 PATIENT: ALPESH MOSQUEDA ACCT: [id number] UNIT: [id number] : 1960 LOC: [facility] ROOM / BED: [address] [place] [address] AGE / SEX: 64 / F ADM STATUS: ADM IN SERVICE 1601 ORDERING PHYSICIAN: LIZ PERDOMO MD PROCEDURE(s): CARM1 - C ARM FLUOROSCOPY UP TO 60MIN REASON: RT KIDNEY LITHOTRIPSY & URETERAL STENT PLACEMENT ORDER NUMBER(s): [id number], ACCESSION NUMBER(s): [id number] C-ARM FLUOROSCOPY: PROCEDURE: Right renal lithotripsy and stent placement FLUOROSCOPY TIME: 29.6 seconds DAP: 11.58 mGy mgy FINDINGS: Spot intraoperative C arm radiographs demonstrating right renal lithotripsy and stent placement. IMPRESSION: 1. Please refer to surgical report for detailed findings. ATED BY: REGI GALEAS Jr., DO DICTATED DATE/TIME: 01/03/25 1731 PATIENT: ALPESH MOSQUEDA ACCT: [id number] UNIT: [id number] : 1960 LOC: [facility] / BED: [address] [place] [address] AGE / SEX: 64 / F ADM STATUS: ADM IN SERVICE 1600 ORDERING PHYSICIAN: LIZ PERDOMO MD PROCEDURE(s): KUB - KUB ABDOMEN SINGLE VIEW REASON: RT KIDNEY LITHOTRIPSY & URETERAL STENT PLACEMENT ORDER NUMBER(s): [id number], ACCESSION NUMBER(s): [id number] C-ARM FLUOROSCOPY: PROCEDURE: Right kidney lithotripsy and stent placement FLUOROSCOPY TIME: 29.6 seconds DAP: 11.6 mgy FINDINGS: Spot intraoperative C arm radiographs demonstrating lithotripsy and stent placement. IMPRESSION: Please refer to surgical report for detailed findings. ATED BY: RUBEN BHANDARI MD DICTATED DATE/TIME: 01/03/25 1853 SIGNED BY: RUBEN BHANDARI MD PATIENT: ALPESH MOSQUEDA ACCT: [id number] UNIT: [id number] : 1960 LOC: [facility] ROOM / BED: [address] [place] [address] AGE / SEX: 64 / F ADM STATUS: ADM IN SERVICE 0600 ORDERING PHYSICIAN: LIZ PERDOMO MD PROCEDURE(s): CXRP - CHEST PORTABLE REASON: pre op ORDER NUMBER(s): [id number], ACCESSION NUMBER(s): [id number] CHEST RADIOGRAPH Indication: pre op Technique: Single frontal view of the chest was obtained Comparison: CHEST PORTABLE on DOS: 01/19/21, CHEST PORTABLE on DOS: 01/05/21 FINDINGS: Lines and Tubes: None Lungs: No focal consolidation. Pleura: No effusion. No pneumothorax. Cardiomediastinal contours: Unremarkable Bones: No acute osseous abnormality. IMPRESSION: 1. No acute cardiopulmonary disease. ATED BY: DILEEP HERRERA MD DICTATED DATE/TIME: 01/02/25818 PATIENT: ALPESH MOSQUEDA ACCT: [id number] UNIT: [id number] : 1960 LOC: ER ROOM / BED: / AGE / SEX: 64 / F ADM STATUS: REG ER SERVICE 1142 ORDERING PHYSICIAN: EDELMIRA BOWERS MD PROCEDURE(s): ABPL - CT AB PEL WO CON-NO ORAL OR IV REASON: rght lower quad pain ORDER NUMBER(s): [id number], ACCESSION NUMBER(s): [id number] Exam: CT CT AB PEL WO CON-NO ORAL OR IV History: rght lower quad pain Comparison Study: CT CT AB PEL WO CON-NO ORAL OR IV on DOS: 06/23/24, CT CT AB PEL WO CON-NO ORAL OR IV on DOS: 05/09/24, CT CT AB PEL WO CON-NO ORAL OR IV on DOS: 04/13/24, CT CT AB PEL WO CON-NO ORAL OR IV on DOS: 12/31/23, CT CT AB PEL WO CON-NO ORAL OR IV on DOS: 09/12/23 Technique: Multidetector spiral CT of the abdomen was performed from lung bases to pubic symphysis. Imaging was performed without IV contrast. Axial, coronal and sagittal multiplanar reformats were obtained from the axial data set by the technologist. Radiation Dose : 1. Abdomen/Pelvis: CTDIvol 22.29 mGy, DLP 1248.55 mGy*cm. Findings: Evaluation of solid organs is limited due to lack of intravenous contrast use. Lung Bases: No acute or significant lung base finding. Normal heart size. No pleural or pericardial effusion. Liver: The liver is normal in size. No focal lesions. Gallbladder and Biliary Tree: Unremarkable Spleen: Unremarkable Pancreas: The pancreas is grossly normal in appearance. Adrenal Glands: Unremarkable Kidneys: Multiple right-sided stones are seen including a 1.2 cm stone in the renal pelvis. Mild right-sided hydronephrosis. Unremarkable left kidney. Bladder: Grossly unremarkable for degree of distention. Bowel: The stomach is grossly normal in appearance. Small bowel and colon are normal in caliber and distribution. The appendix is not visualized; however, no secondary findings of acute appendicitis identified. Ascites: Absent Lymphadenopathy: No mesenteric, retroperitoneal or periportal lymphadenopathy. Abdominal Wall and Mesentery: Unremarkable. Vasculature: The visualized abdominal aorta is normal in size and caliber. Evaluation of abdominal and pelvic vessels is limited due to lack of intravenous contrast. Pelvic Organs: Unremarkable Musculoskeletal: No aggressive focal bony lesions, acute fractures or dislocation. Severe degenerative arthrosis of the right hip with [id number] apposition. IMPRESSION: 1. Multiple right-sided stones are seen including a 1.2 cm stone in the renal pelvis. Mild right-sided hydronephrosis. 2. Severe degenerative arthrosis of the right hip with [id number] apposition Radiation optimization: All CT scans at this facility use at least one of these dose optimization techniques: automated exposure control mA and/or kV adjustment per patient size (includes targeted exams where dose is matched to clinical indication) or iterative reconstruction. ATED BY: MARY ELLEN WAN MD DICTATED DATE/TIME: 01/01/25 1219 Laboratory Results Test 01/05/25 06:16 01/05/25 06:03 01/04/25 15:40 01/02/25 00:28 White Blood Count 8.9 10^3/uL (4.4-10.8) Red Blood Count 3.93 10^6/uL (4.0-5.20) Hemoglobin 11.7 g/dL (12.2-16.2) Hematocrit 35.0 % (36.0-46.0) Mean Corpuscular Volume 88.9 fL (80.0-100.0) Mean Corpuscular Hemoglobin 29.9 pg (28.0-32.0) Mean Corpuscular Hemoglobin Concent 33.6 g/dL (32.0-36.0) Red Cell Distribution Width 14.8 % (11.8-14.3) Platelet Count 189 10^3/uL (140-450) Mean Platelet Volume 9.2 fL (6.9-10.8) Neutrophils (%) (Auto) 69.9 % (37.0-80.0) Lymphocytes (%) (Auto) 22.0 % (10.0-50.0) Monocytes (%) (Auto) 6.5 % (0.0-12.0) Eosinophils (%) (Auto) 1.3 % (0.0-7.0) Basophils (%) (Auto) 0.3 % (0.0-2.0) Neutrophils # (Auto) 6.2 10 ^3/uL (1.6-8.6) Lymphocytes # (Auto) 2.0 10 ^3/uL (0.4-5.4) Monocytes # (Auto) 0.6 10 ^3/uL (0-1.3) Eosinophils # (Auto) 0.1 10 ^3/uL (0-0.8) Basophils # (Auto) 0 10 ^3/uL (0-0.2) Nucleated Red Blood Cells 0.0 % Sodium Level 142 mmol/L (136-145) Potassium Level 4.0 mmol/L (3.5-5.1) Chloride Level 109 mmol/L (98-107) Carbon Dioxide Level 25 mmol/L (20-31) Anion Gap 8 (5-15) Blood Urea Nitrogen 18 mg/dL (9-23) Creatinine 1.03 mg/dL (0.550-1.02) Glomerular Filtration Rate Calc 60 mL/min (>90) BUN/Creatinine Ratio 17.5 (10.0-20.0) Serum Glucose 200 mg/dL (74-106) Calcium Level 9.2 mg/dL (8.7-10.4) Total Bilirubin 0.6 mg/dL (0.2-1.0) Aspartate Amino Transferase (AST) 12 U/L (13-40) Alanine Aminotransferase (ALT) 15 U/L (7-40) Alkaline Phosphatase 58 U/L (46-116) Total Protein 6.1 g/dL (5.7-8.2) Albumin 3.9 g/dL (3.2-4.8) POC Glucose 173 mg/dl (70-106) Urine Color Yellow (Yellow) Urine Clarity Turbid (Clear) Urine pH 5.5 (5.0-9.0) Urine Specific [place] 1.020 (1.001-1.035) Urine Protein 1+ (Negative) Urine Ketones 1+ (Negative) Urine Blood Trace /uL (Negative) Urine Nitrite Negative (Negative) Urine Bilirubin Negative (Negative) Urine Urobilinogen Normal mg/dL (Negative) Urine Leukocyte Esterase Negative /uL (Negative) Urine RBC 3 /hpf (0 - 4) Urine Microscopic WBC 1 /HPF (0-5) Urine Squamous Epithelial Cells Few /hpf (<5) Urine Bacteria None seen /hpf (None Seen) Urine Mucus Few (None Seen) Urine Glucose Normal mg/dL (Normal) Test 01/01/25 17:16 Prothrombin Time 10.3 sec (9.3-11.8) Prothrombin Time INR 0.97 (0.9-1.15) Other Laboratory Tests 01/05/25 06:16 Brief Hx & Hospital Course: History of Present Illness 64 y.o female with PMHx of multiple kidney stones, UTI's, DM and hyperlipidemia, presents to the ED for a chief complaint of right sided groin pain radiating to her back associated with pain on urination x 4 days. Patient reports currently being treated for multiple kidney stones observed via imaging and is on Cefradine. Patient denies any fever, chills, nausea, vomiting, hematuria, bloody stool. 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 Pain is also associated with urination. She denied any fever chills cough or shortness of breaths. CT abdomen revealed Multiple right-sided stones with the largest measuring1.2 cm in the renal pelvis with right-sided hydronephrosis. Severe degenerative arthrosis of the right hip with [id number] apposition. Her last lithotripsy was June 2024. Urology was consulted and patient had another Right ureteroscopy/pyeloscopy, laser lithotripsy with CVAC system and cystoscopy with right ureteral stent placement. Procedure went well there was no complication. Postop day 1 patient continued to complain of right flank pain and also pain in the right groin region. A repeat renal scan revealed Multiple bilateral nonobstructing echogenic foci consistent with small calculi.The largest is on the right and measures 1.[address] abdomen also revealed Right ureteral stent with interval removal of right kidney stones, some small nonobstructive stones remain.Severe colonic diverticulosis. Patient is seen again by the urologist and plan for her to follow up with the outpatient for an elective procedure. Patient overall is doing well today pain is much better with pain medication we will send patient home with antibiotics for 3 days pain medication. Patient has been advised to follow up with Urology outpatient for further evaluation. Review of systems Constitutional: Denies fever no chills no feeling of malaise HEENT: Denies headache, ear pain, ear discharges, conjunctivitis, nasal discharge throat pain Cardiovascular: Denies chest pain, palpitation, orthopnea, PND, or pedal edema Respiratory: Denies shortness of breath, cough cough, sputum production, hemoptysis, GI: Denies abdominal pain, nausea, vomiting, diarrhea, hematemesis, hematochezia, : Denies frequency, urgency, hematuria, Mild right groin pain Endocrine: Denies unintentional weight gain or weight loss, feeling of hot flashes, Claudio: Denies easy bruising, bleeding disorders, epistaxis Musculoskeletal: Denies joint pains, muscle aches Psych: No evidence of depression, melissa, suicidal ideation Examination General Appearance: Alert, Oriented X3, Cooperative, No acute distress HEENT: Atraumatic, PERRLA, EOMI, Mucous membrane moist/pink Respiratory: Clear to auscultation, Normal air movement Cardiovascular: Regular rate, Normal S1, Normal S2, No murmurs, no chest wall tenderness Abdominal: NO distention, no tenderness, bowel sounds present, no scars noted Extremities: No clubbing, No cyanosis, No edema, Normal pulses, No tenderness/swelling Skin: No rashes, No breakdown, No significant lesion Neuro: Normal gait, Normal speech, Strength at 5/5 X4 ext, Normal tone, Sensation intact, Cranial nerves 3-12 NL, Reflexes 2+ Psych/Mental Status: Mental status NL, Mood NL Diagnoses Multiple nephrolithiasis measuring 1.2 cm with hydronephrosis Hydronephrosis Diabetes mellitus type 2 MALINDA due to VMN CKD 2 Anxiety Depression History of gout Hyperlipidemia History of UTI. Obesity grade 2, BMI 40.1 Discharge plan Continue home mediations follow up at the discharge clinic in 7 days follow up at the urology outpatient clinic next week for an elective procedure Antibiotics for 3 days Discharge plan discussed with Dr. Garnica Consults/Reason for consult Reason for Consultation: Right renal stones Operations or Procedures PATIENT: ALPESH MOSQUEDA ACCT: [id number] : 1960 LOC: [facility] ROOM/ROOM: 0276-B AGE/SEX: 64/F ADM STATUS: ADM IN ADM DATE: 01/01/25 UNIT: [id number] HEALTH INFORMATION MANAGEMENT PROCEDURE NOTE - [facility] :[id number] Signed ORDERING PHYSICIAN: PROCEDURE(s): ORDER NUMBER(s): , ACCESSION NUMBER(s): Procedure - OPERATIVE REPORT Pre-op. Diagnosis: Kidney Stone - Right- multiple stones including 1.2 cm stone Right flank pain Post-op. Diagnosis: Same as pre-op diagnosis Operation: Right ureteroscopy/pyeloscopy, laser lithotripsy with CVAC system Cystoscopy with right ureteral stent placement Anesthesia: General Indications: Patient with large 1.2 cm right renal pelvic stone and multiple small stones. The indications, risks, complications, alternatives and benefits were discussed. All questions were encouraged and answered. Patient is aware of risks/complications including but not limited to infection, bleeding, persistent pain, possible ureteral injury/ureteral stricture requiring additional surgical management, urethral injury, urethral stricture and meatal stenosis. Details of Procedure: After obtaining the consent, patient was taken to OR suite and underwent general anesthesia. Preop antibiotic was given. Timeout was performed and deemed to be correct. With the patient positioned in the lithotomy, the area of the genitalia prepped and draped in usual sterile fashion. 22 F Cystoscope was used to access the urethra and bladder. A sensor tip guide wire was advanced through the scope into the right ureter all the way to the right collecting system under fluoroscopic control. I advanced 07/23 Fr 28 cm access sheet over the working wire all the way to the proximal ureter under fluoroscopy control, then the inner sheet and the working wire was removed. The CVAC flexible ureteroscope was advanced through the access sheet. The stones were visualized. Now using a 200 micron laser fiber the stone was blasted into small fragments and suctioned out while in popcorn mode. Ureteroscope was then removed and guidewire placed. Ureteral sheath was then removed. At this point the cystoscope was advanced over the wire into the bladder. Now a 5 Fr x [address] ureteral stent was advanced under direct visualization through the right ureteral orifice into the kidney. Good proximal curl was seen in the renal pelvis under fluoroscopy and the distal curl was seen in the bladder once the wire was removed. Anesthesia was reversed, patient was extubated and transferred awake and in stable conditions to recovery room. Specimens: renal stone fragments Complications: None Findings: Notes: 5 Fr x [address] ureteral stent - Right TANVI PERDOMO MD January 03, 2025 15:50 DICTATED BY: TANVI PERDOMO MD DICATED DATE/TIME: 01/03/25 1550 Condition at Discharge: Good Final Diagnosis/Problems List Nephrolithiasis measuring 1.2 cm with hydronephrosis Hydronephrosis Diabetes mellitus type 2 MALINDA due to VMN CKD type 2 Anxiety Depression History of gout Hyperlipidemia History of UTI. Obesity grade 2, BMI 40.1 Discharge Disposition: Home Discharge Instruct/Medications Diet: See Comment Diet comment: Renal diet/diabetic diet Activity: No Restrictions, As Tolerated Follow Up/Referral: 7 days at the discharge clinic Medications: Cefdnir Tylenol Discharge Statement: "Patient was advised to return to the ER or call 911 if any headaches, dizziness, shortness of breath, chest pain, abdominal pain, bleeding, fevers, or worsening of medical condition. Patient was counseled about treatment plan, medications, possible side effects, patientverbalized understanding. All questions were answered to the best of my ability. This discharge took greater then 30 minutes in planning, reviewing documentation, counseling the patient, and discussing with other team members." ASSESSMENT ASSESSMENT Assessment Nephrolithiasis measuring 1.2 cm with hydronephrosis Hydronephrosis Diabetes mellitus type 2 MALINDA due to VMN CKD 2 Anxiety Depression History of gout Hyperlipidemia History of UTI. Obesity grade 2, BMI 40.1 RADHA REICH RESIDENT January 05, 2025 12:20
[2025-01-05] MEDS ORDERED: CEFD300C2 PO (12:24)
[2025-01-05] MEDS ORDERED: ACET-1882 PO (12:24)
[2025-01-05] MEDS ORDERED: TAMS-35 PO (12:24)
[2025-01-05 13:00] VITALS: BP 132/77; PULSE 63; RESP 16; TEMP 97.4; O2SAT 98
[2025-01-05 17:00] VITALS: BP 148/69; PULSE 76; RESP 17; TEMP 97.4; O2SAT 97
[2025-01-06] MEDS ORDERED: ENOXAPARIN SOD 40 MG/0.4 ML SYRINGE SC SCH (10:00)
== END 2025-01-05 16:54 | disposition home or self-care (01) | DRG 660 ==
LOC: ER 11:07 → OVERFLOW 17:00 → WEST WING 01-02 02:26
PROVIDERS: ADMIT Hospitalist; ATTEND Hospitalist
PROC: 0TC08ZZ Extirpation of Matter from Right Kidney, Via Natural or Artificial Opening Endoscopic (ICD-10-PCS; 2025-01-03)
PROC: 0T768DZ Dilation of Right Ureter with Intraluminal Device, Via Natural or Artificial Opening Endoscopic (ICD-10-PCS; principal; 2025-01-03 14:35)
DX: N13.2 Hydronephrosis with renal and ureteral calculous obstruction (principal); Z68.41 Body mass index [BMI] 40.0-44.9, adult; N17.0 Acute kidney failure with tubular necrosis; F41.9 Anxiety disorder, unspecified; F32.A Depression, unspecified; N18.2 Chronic kidney disease, stage 2 (mild); E66.9 Obesity, unspecified; E78.5 Hyperlipidemia, unspecified; E11.22 Type 2 diabetes mellitus with diabetic chronic kidney disease; I10 Essential (primary) hypertension; M10.9 Gout, unspecified; Z88.0 Allergy status to penicillin; Z88.1 Allergy status to other antibiotic agents; Z88.3 Allergy status to other anti-infective agents; Z82.49 Family history of ischemic heart disease and other diseases of the circulatory system; Z82.0 Family history of epilepsy and other diseases of the nervous system; Z82.3 Family history of stroke; Z80.3 Family history of malignant neoplasm of breast; Z79.4 Long term (current) use of insulin
CPT/HCPCS: 36415; 71045; 74018; 74176; 76000; 76775; 80048; 80053; 81001; 82360; 82962; 85025; 85610; 86850; 86900; 86901; 93005; 96361; 96365; G0378; J1100; J1815; J1885; J2003; J2250; J2405; J2704

== ENCOUNTER 2025-05-02 08:12 | Day surgery (SDC) | payer MEDICARE, MEDICAID ==
[2025-05-01 11:50] LABS: Hematocrit 36.8 % (36.0-46.0); Hemoglobin 12.5 g/dL (12.2-16.2); Mean Corpuscular Hemoglobin 30.4 pg (28.0-32.0); Mean Corpuscular Volume 89.0 fL (80.0-100.0); Nucleated Red Blood Cells % 0.1 %
[2025-05-01 12:03] LABS: Urine Protein, UAD TRACE (Negative)
[2025-05-01 12:14] LABS: INR 0.99 (0.9-1.15); Partial Thromboplastin Time 29.4 SEC (24.5-34.5); Prothrombin Time 10.5 sec (9.3-11.8)
[2025-05-01 12:25] LABS: Alanine Aminotransferase 15 U/L (7-40); Albumin 4.3 g/dL (3.2-4.8); Alkaline Phosphatase 72 U/L (46-116); Anion Gap 11 (5-15); BUN/Creatinine Ratio 13.9 (10.0-20.0); Bilirubin, Total 1.0 mg/dL (0.2-1.0); Blood Urea Nitrogen 14 mg/dL (9-23); Calcium 9.3 mg/dL (8.7-10.4); Carbon Dioxide 24 mmol/L (20-31); Chloride 106 mmol/L (98-107); Potassium 3.9 mmol/L (3.5-5.1); Sodium 141 mmol/L (136-145); Total Protein 7.2 g/dL (5.7-8.2)
[2025-05-01 12:26] LABS: Glucose 150 mg/dL (74-106)
[~2025-05-02] VITALS: Ht 162.6 cm; Wt 105.2 kg
[~2025-05-02 08:12] MED LIST changes: +ACET-1882 PO; -HYDR-4069 PO
[2025-05-02] MEDS ORDERED: cefTRIAXone SOD 1,000 MG VL ONE (08:36)
[2025-05-02] MEDS ORDERED: LIDOCAINE 2% (LOCAL ANESTH.) PF 5ml SDV ONE (08:36)
[2025-05-02] MEDS ORDERED: KETOROLAC TROMETH 30 MG/ML 1ML VIAL ONE (08:36)
[2025-05-02] MEDS ORDERED: GLYCOPYRROLATE 0.2 MG/ML 1ML VIAL ONE (08:36)
[2025-05-02] MEDS ORDERED: PROPOFOL 10 MG/ML 20 ML IV ONE ×2 (08:36→09:10)
[2025-05-02] MEDS ORDERED: ONDANSETRON HCL 4 MG/2 ML VIAL ONE ×2 (08:36→10:57)
[2025-05-02] MEDS ORDERED: DexmedeTOMIDine 2 ML IV ONE (09:13)
[2025-05-02] MEDS ORDERED: SODIUM CHLORIDE LOCK 10 ML ONE (09:14)
[2025-05-02] MEDS ORDERED: LIDOCAINE 1% INJ PF 5ML AMP ONE (09:31)
--- NOTE | 2025-05-02 10:10 | DVHDS2 ---
New Physician D'charge PN Admitting Diagnosis Admitting Diagnosis Right renal calculus, radiolucent Right ureteral stent Discharge Diagnosis Same Operations or Procedures Right ESWL with cystoscopy and stent removal Reason(s) For Hospitalization Surgery Treatment Plan Discharge Condition of Discharge Fair Disposition Home Discharge Instructions Diet: Regular Activity: Light activity Activity comment: As tolerated Medications: Given Follow Up Care Follow Up/Referral: Follow up in four weeks with repeat CT scan Discharge Statement: "Patient was advised to return to the ER or call 911 if any headaches, dizziness, shortness of breath, chest pain, abdominal pain, bleeding, fevers, or worsening of medical condition. Patient was counseled about treatment plan, medications, possible side effects, patientverbalized understanding. All questions were answered to the best of my ability. This discharge took greater then 30 minutes in planning, reviewing documentation, counseling the patient, and discussing with other team members." TANVI PERDOMO MD May 02, 2025 10:10
--- NOTE | 2025-05-02 10:12 | DVHNC2 ---
Procedure - OPERATIVE REPORT Pre-op. Diagnosis: Renal Stone- right lower pole, radiolucent indwelling right ureteral stent Post-op. Diagnosis: Same as pre-op diagnosis Operation: Extracorporeal Shockwave Lithotripsy cystoscopy with right ureteral stent removal Anesthesia: General Indications: Patient was found to have symptomatic Urolithiasis. Patient is here to undergo ESWL therapy. Informed Consent: The procedure was explained to the patient. It's risks include but not limited to infection, bleeding, and damage to the kidney. Patient fully understood and signed the consent. Other options such as watchful waiting, Ureteroscopy, Percutaneous surgery and open surgery were also discussed. Details of Procedure: Under satisfactory anesthesia, the patient was positioned on the lithotripsy table. Using fluoroscopy the stone was localized. Starting at low energy levels, shockwave treatment was commenced. The energy level was gradually increased and stone was fragmented. Next, the patient was placed in dorsal lithotomy position with the area of the genitalia prepped and draped in usual sterile manner. The 21 [place] rigid cystoscope was assembled then used to access the bladder. The stent is identified and removed using grasping forceps. Bladder was decompressed. Once the treatment was completed, patient was then taken off the lithotripsy table and sent to recovery room in stable condition. Specimens: Stent- right ureteral Complications: None Findings: Stone Laterality: right Stone Location: renal, lower pole 2 cm stone, soft Shocks Delivered: 2400 Max Power setting: six Fragmentation Quality: TANVI Coon MD May 02, 2025 10:12
[2025-05-02 10:42] VITALS: PULSE 89; RESP 14; TEMP 98.8; O2SAT 98
[2025-05-02] MEDS ORDERED: HYDROmorphone HCL 2 MG/ML VL/or syr IV PRN (11:00)
[2025-05-02] MEDS ORDERED: ONDANSETRON HCL 4 MG/2 ML VIAL IV PRN (11:00)
[2025-05-02] MEDS ORDERED: ACETAMINOPHEN IV 1000 MG/100ML (10MG/ML) IV ONE (11:00)
[2025-05-02 11:30] VITALS: BP 137/66; PULSE 72; RESP 15; O2SAT 95
== END 2025-05-02 11:45 | disposition home or self-care (01) ==
LOC: SUR 08:12
PROVIDERS: ATTEND Urology
DX: N20.0 Calculus of kidney (principal); E11.9 Type 2 diabetes mellitus without complications; F41.9 Anxiety disorder, unspecified; F32.9 Major depressive disorder, single episode, unspecified; G47.33 Obstructive sleep apnea (adult) (pediatric); E66.01 Morbid (severe) obesity due to excess calories; Z68.36 Body mass index [BMI] 36.0-36.9, adult
CPT/HCPCS: 36415; 50590; 52310; 80053; 81003; 82962; 85025; 85610; 85730; 87086; A4344; C1769; J0696; J1100; J1885; J2003; J2405; J2704; J7030; J7060